=== PATIENT | female | born 1955 | race Caucasian/White ===

== ENCOUNTER 2016-05-28 19:49 | Emergency (ER) | payer BC, MEDICARE ==
[2016-05-28] MEDS ORDERED: oxyCODONE 5 MG TABLET PO STA (19:58)
[2016-05-28] MEDS ORDERED: oxyCODONE 5 MG TABLET ONE (20:01)
[2016-05-28] MEDS ORDERED: oxyCODONE/ACET 5/325 Prepack 4 PO STA (20:37)
[2016-05-28] MEDS ORDERED: oxyCODONE/ACET 5/325 Prepack 4 PO ONE (20:40)
== END 2016-05-28 20:55 | disposition home or self-care (01) ==
DX: R10.11 Right upper quadrant pain (principal); E11.65 Type 2 diabetes mellitus with hyperglycemia; I10 Essential (primary) hypertension; E78.00 Pure hypercholesterolemia, unspecified; I25.10 Atherosclerotic heart disease of native coronary artery without angina pectoris; E03.9 Hypothyroidism, unspecified; G47.30 Sleep apnea, unspecified; K21.9 Gastro-esophageal reflux disease without esophagitis; K44.9 Diaphragmatic hernia without obstruction or gangrene; R32 Unspecified urinary incontinence; F41.0 Panic disorder [episodic paroxysmal anxiety]; F31.9 Bipolar disorder, unspecified; F40.240 Claustrophobia; M19.90 Unspecified osteoarthritis, unspecified site; G89.29 Other chronic pain; M54.9 Dorsalgia, unspecified; I25.2 Old myocardial infarction; Z86.73 Personal history of transient ischemic attack (TIA), and cerebral infarction without residual deficits; Z85.3 Personal history of malignant neoplasm of breast; Z79.84 Long term (current) use of oral hypoglycemic drugs; Z79.4 Long term (current) use of insulin; Z79.899 Other long term (current) drug therapy; Z90.49 Acquired absence of other specified parts of digestive tract
CPT/HCPCS: 36415; 80053; 83690; 85025; 85610; 99283; 99284; A9270

== ENCOUNTER 2016-07-16 11:14 | Emergency (ER) | payer BC, MEDICARE | END 2016-07-16 13:38 | disposition home or self-care (01) | DX: J06.9 Acute upper respiratory infection, unspecified (principal); J98.11 Atelectasis; Z87.891 Personal history of nicotine dependence; I10 Essential (primary) hypertension; E11.9 Type 2 diabetes mellitus without complications; Z79.4 Long term (current) use of insulin; E78.5 Hyperlipidemia, unspecified; I25.10 Atherosclerotic heart disease of native coronary artery without angina pectoris; I25.2 Old myocardial infarction; E03.9 Hypothyroidism, unspecified ==

== ENCOUNTER 2016-08-15 09:47 | Outpatient (CLI) | payer BC, MEDICARE | END 2016-08-15 09:48 | disposition home or self-care (01) | DX: Z12.31 Encounter for screening mammogram for malignant neoplasm of breast (principal); Z98.82 Breast implant status; Z85.3 Personal history of malignant neoplasm of breast ==

== ENCOUNTER 2016-08-15 10:17 | Outpatient (CLI) | payer BC, MEDICARE | END 2016-08-15 10:18 | disposition home or self-care (01) | DX: R07.89 Other chest pain (principal) | CPT/HCPCS: 78452; 93017; A9500 ==

== ENCOUNTER 2016-10-30 11:02 | Emergency (ER) | payer BC, MEDICARE ==
[2016-10-30 11:56] LABS: BASOPHILS # (AUTO) 0.1 10^3/uL (0.0-0.1); EOSINOPHILS # (AUTO) 0.4 10^3/uL (0.0-0.7); HCT - HEMATOCRIT 33.4 % (37.0-47.0); HGB - HEMOGLOBIN 11.1 g/dL (12.0-16.0); LYMPHOCYTES # (AUTO) 2.4 10^3/uL (1.5-3.5); LYMPHOCYTES % (AUTO) 34.1 %; MEAN CORPUSCULAR HEMOGLOBIN 26.7 pg (27.0-31.0); MEAN CORPUSCULAR HGB CONC 33.2 g/dL (32.0-36.0); MEAN CORPUSCULAR VOLUME 80.4 fL (81.0-99.0); MONOCYTES # (AUTO) 0.6 10^3/uL (0.0-1.0); NEUTROPHILS # (AUTO) 3.6 10^3/uL (1.5-6.6); NEUTROPHILS % (AUTO) 50.9 %; RED BLOOD COUNT 4.16 10^6/uL (4.20-5.40); RED CELL DISTRIBUTION WIDTH 15.5 % (12.0-15.0)
--- NOTE | 2016-10-30 11:58 | ED Physician Documentation ---
History of Present Illness - Stated complaint Stated Complaint: CHEST PAIN - Chief complaint Chief Complaint: Cardiac - History obtained from History obtained from: Patient - Additonal information Additional information: Patient is a 61-year-old female brought in by EMS for a multitude of complaints. She says she has pain all of her body and that she is swollen everywhere. She points an area on her medial right knee that appears to be an old area of soft tissue swelling and bruising. She says she has been falling a lot at home. She also complains of low back pain headaches nausea on occasion and feels like she needs pain medication. I also talked with the patient's brother who knows her quite well and was very concerned about her addiction. He says that he is currently in recovery in both her parents and everyone in her family is addicted. She is currently taking at least 12 mg of Dilaudid a day and also taking diazepam as well. He is concerned about her heavy use of narcotics. He feels she is probably using more than she tells us. He also mentions that she was in [place] at the emergency department last week for identical complaints. He said that they did a fairly significant workup and did not find anything unusual. Review of systems: For pertinent positive and negative questions for the review of systems please see history of present illness. Otherwise all other systems have been reviewed and are negative. [place] disclaimer: Parts of this medical record were created using voice recognition technology. Because of the inherent limitations of this system occasional same sounding word substitutions do occur and persist despite proofreading. Please read the document for context. 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: Breast cancer : Incontinence HEENT: None Psych: Depression, Anxiety, Bipolar disorder, Panic attacks, Claustrophobia Musculoskeletal: Osteoarthritis, Chronic back pain Derm: None - Past Surgical History Past Surgical History: Yes General: Cholecystectomy, Appendectomy, Colonoscopy, Other Ortho: Carpal Tunnel surgery, Other /ADDING MACHINE MECHANIC: Hysterectomy, Mastectomy Cardiovascular: Cardiac catheterization, Other HEENT: Cataracts, Tonsil/Adenoidectomy - Present Medications Home Medications: Ambulatory Orders Medication Instructions Recorded Confirmed Duloxetine HCl [Cymbalta] 60 mg PO DAILY 08/15/14 10/30/16 Levothyroxine Sodium [Synthroid] 300 mcg PO DAILY 08/15/14 10/30/16 Losartan [Cozaar] 25 mg PO DAILY 08/15/14 10/30/16 Insulin Lispro [Humalog Kwikpen] 70 unit SQ BID 11/22/15 10/30/16 Metoprolol Tartrate [Lopressor] 25 mg PO BID 11/22/15 10/30/16 Multivitamin [Multivitamins] 1 each PO DAILY 11/22/15 10/30/16 Vitamin B Complex 1 each PO DAILY 11/22/15 10/30/16 traMADol [Ultram] 50 mg PO Q4-6H PRN 11/22/15 10/30/16 Trospium Chloride 1 tab BID 05/28/16 10/30/16 Alprazolam [Alprazolam] 1 tab PO PRN PRN 10/30/16 10/30/16 Atorvastatin Calcium 1 tab PO DAILY 10/30/16 10/30/16 HYDROmorphone [Dilaudid] 1 tab PO PRN PRN 10/30/16 10/30/16 Metformin HCl [Metformin HCl] 1 tab PO DAILY 10/30/16 10/30/16 Multivitamin [Multivitamins] 1 tab PO DAILY 10/30/16 10/30/16 Pantoprazole [Protonix] 1 tab PO DAILY 10/30/16 10/30/16 Senna [Senokot] 1 tab PO DAILY 10/30/16 10/30/16 - Allergies Allergies/Adverse Reactions: Allergies Allergy/AdvReac Type Severity Reaction Status Date / Time azithromycin Allergy Edema Verified 10/30/16 11:09 [From Zithromax Z-Robin] Penicillins Allergy Anaphylaxis Verified 10/30/16 11:09 vancomycin Allergy Edema Verified 10/30/16 11:09 erythromycin base AdvReac Emesis Verified 10/30/16 11:09 sulfacetamide sodium * AdvReac Unknown Verified 10/30/16 11:09 [From Sulfamide] - Social History Does the pt smoke?: No Smoking Status: Former smoker Does the pt drink ETOH?: Yes Does the pt have substance abuse?: No - Immunizations Immunizations are current?: Yes - POLST Patient has POLST: No PD ED PE NORMAL - Vitals Vital signs reviewed: Yes - General General: No acute distress, Well developed/nourished (Patient looks intoxicated on narcotics), Other - HEENT HEENT: Atraumatic, PERRL, Other (Mild pupillary constriction bilaterally) - Neck Neck: No bony TTP - Cardiac Cardiac: RRR, No murmur, No gallop, No rub - Respiratory Respiratory: No respiratory distress, Clear bilaterally - Abdomen Abdomen: Normal bowel sounds, Soft, Non tender, Non distended - Derm Derm: Normal color, Warm and dry, No rash - Extremities Extremities: No deformity, No tenderness to palpate, Normal ROM s pain, No edema - Neuro Neuro: Alert and oriented X 3, No motor deficit, No sensory deficit, Normal speech Results - Vitals Vitals: Vital Signs - 24 hr 10/30/16 11:05 Heart Rate 82 Respiratory 16 Rate Blood Pressure 152/80 H O2 Saturation 98 Oxygen O2 Source Room air PD MEDICAL DECISION MAKING - ED course ED course: This patient is a 61-year-old female with a long history of chronic pain hypertension migraines and anxiety who presents with a complaint of pain all over her body and edema all of her body. She does state that she falls on occasion which is confirmed by her brother and his are quite well. He does not believe that there is been any fall recently. He does live with her and is aware that she is taking these high doses of narcotics. He thinks that perhaps she may be taking more than she is supposed to. Or data shows that she is taking 12 mg of Dilaudid a day and diazepam.On my physical examination I see no obvious evidence of any soft tissue swelling anywhere in her body other than the area that looks subacute adjacent to the right knee. I carefully palpated her from head to toe. She has multiple vague complaints that do not fit into any one unified pattern. We did check a chest x-ray on her it shows no acute intrathoracic disease. EKG shows normal sinus rhythm with a normal, [place] QRS and QT intervals there is a very subtle T-wave inversion in V1 V2 and V3 but there are really no cardiac complaints chest x-ray shows no acute disease blood work on this patient is really unremarkable. She is given 1 mg of Ativan just to keep her compliant. The patient's brother is going to talk with her primary care physician Dr. Carrington about her pain medication use. He feels that she is on much too high of a dose and she probably needs to be placed in a detoxification center. The patient does not want Help at this time and reducing her narcotic use. Departure - Departure Disposition: 01 Home, Self Care Clinical Impression: Psychogenic body system pain Condition: Good Instructions: Chronic Pain Therapies Mind Body
[2016-10-30 12:03] LABS: BILIRUBIN,TOTAL 0.3 mg/dL (0.2-1.0); CREATININE 0.5 mg/dL (0.4-1.0); TOTAL PROTEIN 8.1 g/dL (6.7-8.2)
[2016-10-30 12:06] LABS: BILIRUBIN,URINE NEGATIVE (NEGATIVE)
[2016-10-30 12:07] LABS: UA CHARGE (STRIP ONLY) YES; UR CULTURE IF IND NOT INDICATED
--- NOTE | 2016-10-30 12:20 | XRAY Preliminary Report ---
Exam: XR Chest 1 View IMPRESSION: 1. Persistent borderline cardiomegaly with new finding suggesting mild pulmonary congestion. 2. New or significantly increased size of small patchy focal opacities in the lingula, suggesting ate lectasis versus focal infiltrate. [facility] SITE ID: [id number]
--- NOTE | 2016-10-30 12:23 | XRAY Report ---
EXAM: CHEST RADIOGRAPHY EXAM DATE: 10/30/2016 11:49 AM. CLINICAL HISTORY: Chest pain.Status post open heart surgery in August 2016. COMPARISON: 07/16/2016. TECHNIQUE: 1 view. FINDINGS: Lungs/Pleura: New mild perihilar opacity, perihilar bronchial cuffing bilaterally and new or signific antly increased size of small patchy focal opacities in the lingula evident. No pleural effusion. No pneumothorax. Mediastinum: Borderline cardiomegaly is again noted. Other: Interval status post sternotomy is noted. IMPRESSION: 1. Persistent borderline cardiomegaly with new finding suggesting mild pulmonary congestion. 2. New or significantly increased size of small patchy focal opacities in the lingula, suggesting ate lectasis versus focal infiltrate. [facility] Referring Provider Line: [phone] SITE ID: [id number]
--- NOTE | 2016-10-30 14:34 | ED Physician Documentation ---
History of Present Illness - Stated complaint Stated Complaint: CHEST PAIN - Chief complaint Chief Complaint: Cardiac - History obtained from History obtained from: Family - Additonal information Additional information: This patient is a pleasant 61-year-old female with a history of known coronary artery disease. She was bypassed on September 06 of this year. She prior to the bypass had a few stents that were placed to temporize her. She does have hypertension, diabetes, dyslipidemia and obesity. She has been compliant with her medications. She was actually doing wellWith outpatient exercise in cardiac rehab today on the treadmill she developed chest pressure after about 10 -15 minutes. This is described as a substernal heaviness rating to the back without associated symptoms. She did however have a headache she says there was some chest pain when she presented to the ED. Here the patient had a ECG done this ECG demonstrates normal sinus rhythm with some nonspecific anterior T- wave abnormalities. In V1 V2 and a lesser extent V3 there is very small T-wave inversion and ST and T segments are isoelectric the WI QRS and QT intervals are normal there are no Q waves. Chest x-ray demonstrates poor penetration however there is no evidence of any acute intrathoracic disease. Blood work on this patient is unremarkable including troponin. The patient's pain is gone. I discussed the case with her medicine assistant at [facility] Dr. Bhandari.He has called in a prescription for additional antianginal medication. He is going to put her on Imdur. The patient at this time clinically looks well and has no complaints a second troponin was done at approximately 2-1/2 hours after the onset of discomfort. The second troponin is also normal. The medicine assistant will be calling the patient. We did discuss limitations and at this point in time he would like her to proceed with continuing cardiac rehabilitation. Disposition: To home Clinical impression: 1. 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: Breast cancer : Incontinence HEENT: None Psych: Depression, Anxiety, Bipolar disorder, Panic attacks, Claustrophobia Musculoskeletal: Osteoarthritis, Chronic back pain Derm: None - Past Surgical History Past Surgical History: Yes General: Cholecystectomy, Appendectomy, Colonoscopy, Other Ortho: Carpal Tunnel surgery, Other /BSA/AML COMPLIANCE OFFICER: Hysterectomy, Mastectomy Cardiovascular: Cardiac catheterization, Other HEENT: Cataracts, Tonsil/Adenoidectomy - Present Medications Home Medications: Ambulatory Orders Medication Instructions Recorded Confirmed Duloxetine HCl [Cymbalta] 60 mg PO DAILY 08/15/14 10/30/16 Levothyroxine Sodium [Synthroid] 325 mcg PO DAILY 08/15/14 10/30/16 Losartan [Cozaar] 25 mg PO DAILY 08/15/14 10/30/16 Insulin Lispro [Humalog Kwikpen] 70 unit SQ BID 11/22/15 10/30/16 Metoprolol Tartrate [Lopressor] 25 mg PO BID 11/22/15 10/30/16 Multivitamin [Multivitamins] 1 each PO DAILY 11/22/15 10/30/16 Vitamin B Complex 1 each PO DAILY 11/22/15 10/30/16 traMADol [Ultram] 50 mg PO Q4-6H PRN 11/22/15 10/30/16 Trospium Chloride 1 tab BID 05/28/16 10/30/16 Alprazolam [Alprazolam] 1 tab PO PRN PRN 10/30/16 10/30/16 Atorvastatin Calcium 1 tab PO DAILY 10/30/16 10/30/16 HYDROmorphone [Dilaudid] 1 tab PO PRN PRN 10/30/16 10/30/16 Levothyroxine Sodium [Synthroid] 300 mcg PO DAILY 10/30/16 10/30/16 Metformin HCl [Metformin HCl] 1 tab PO DAILY 10/30/16 10/30/16 Multivitamin [Multivitamins] 1 tab PO DAILY 10/30/16 10/30/16 Pantoprazole [Protonix] 1 tab PO DAILY 10/30/16 10/30/16 Senna [Senokot] 1 tab PO DAILY 10/30/16 10/30/16 - Allergies Allergies/Adverse Reactions: Allergies Allergy/AdvReac Type Severity Reaction Status Date / Time azithromycin Allergy Edema Verified 10/30/16 11:09 [From Zithromax Z-Robin] Penicillins Allergy Anaphylaxis Verified 10/30/16 11:09 vancomycin Allergy Edema Verified 10/30/16 11:09 erythromycin base AdvReac Emesis Verified 10/30/16 11:09 sulfacetamide sodium * AdvReac Unknown Verified 10/30/16 11:09 [From Sulfamide] - Social History Does the pt smoke?: No Smoking Status: Former smoker Does the pt drink ETOH?: Yes Does the pt have substance abuse?: No - Immunizations Immunizations are current?: Yes - POLST Patient has POLST: No Results - Vitals Vitals: Vital Signs - 24 hr 10/30/16 10/30/16 11:05 11:57 Heart Rate 82 75 Respiratory 16 18 Rate Blood Pressure 152/80 H 143/75 H O2 Saturation 98 99 Oxygen O2 Source Room air - Labs Labs: Laboratory Tests 10/30/16 10/30/16 10/30/16 11:11 11:11 11:11 WBC 7.0 RBC 4.16 L Hgb 11.1 L Hct 33.4 L MCV 80.4 L MCH 26.7 L MCHC 33.2 RDW 15.5 H Plt Count 277 MPV 8.0 Neut # 3.6 Lymph # 2.4 [place] # 0.6 Eos # 0.4 Baso # 0.1 Absolute Nucleated RBC 0.00 Nucleated RBCs 0.0 Sodium 139 Potassium 4.0 Chloride 102 Carbon Dioxide 27 Anion Gap 10.0 BUN 9 Creatinine 0.5 Estimated GFR (MDRD) 126 Glucose 88 Calcium 10.0 Total Bilirubin 0.3 AST 40 ALT 32 Alkaline Phosphatase 178 H Troponin I < 0.04 B-Natriuretic Peptide Total Protein 8.1 Albumin 4.1 Globulin 4.0 Albumin/Globulin Ratio 1.0 Lipase 29 Urine Color Urine Clarity Urine pH Ur Specific [place] Urine Protein Urine Glucose (UA) Urine Ketones Urine Occult Blood Urine Nitrite Urine Bilirubin Urine Urobilinogen Ur Leukocyte Esterase Ur Microscopic Review Urine Culture Comments 10/30/16 10/30/16 10/30/16 11:11 11:47 13:35 WBC RBC Hgb Hct MCV MCH MCHC RDW Plt Count MPV Neut # Lymph # [place] # Eos # Baso # Absolute Nucleated RBC Nucleated RBCs Sodium Potassium Chloride Carbon Dioxide Anion Gap BUN Creatinine Estimated GFR (MDRD) Glucose Calcium Total Bilirubin AST ALT Alkaline Phosphatase Troponin I < 0.04 B-Natriuretic Peptide 54 Total Protein Albumin Globulin Albumin/Globulin Ratio Lipase Urine Color YELLOW Urine Clarity CLEAR Urine pH 7.0 Ur Specific [place] <=1.005 Urine Protein NEGATIVE Urine Glucose (UA) NEGATIVE Urine Ketones NEGATIVE Urine Occult Blood NEGATIVE Urine Nitrite NEGATIVE Urine Bilirubin NEGATIVE Urine Urobilinogen 0.2 (NORMAL) Ur Leukocyte Esterase NEGATIVE Ur Microscopic Review NOT INDICATED Urine Culture Comments NOT INDICATED Departure - Departure Disposition: 01 Home, Self Care Clinical Impression: Precordial chest pain Condition: Good Instructions: Nitroglycerin Long Act Dc, Angina Dc Follow-Up: Omar Gauthier MD [Physician No Access] -
[2016-10-30 14:48] VITALS: BP 166/96
== END 2016-10-30 14:53 | disposition home or self-care (01) ==
LOC: ED 11:02
DX: R07.2 Precordial pain (principal); I25.10 Atherosclerotic heart disease of native coronary artery without angina pectoris; I25.2 Old myocardial infarction; I10 Essential (primary) hypertension; E11.9 Type 2 diabetes mellitus without complications; Z95.1 Presence of aortocoronary bypass graft; Z95.5 Presence of coronary angioplasty implant and graft; Z86.73 Personal history of transient ischemic attack (TIA), and cerebral infarction without residual deficits; Z87.891 Personal history of nicotine dependence; Z79.84 Long term (current) use of oral hypoglycemic drugs; Z79.4 Long term (current) use of insulin
CPT/HCPCS: 36415; 71010; 80053; 81001; 81003; 83690; 83880; 84484; 85025; 87086; 93005; 99284

== ENCOUNTER 2017-04-08 15:41 | Observation (INO) | payer BC, MEDICARE ==
[2017-04-08 16:13] LABS: BASOPHILS # (AUTO) 0.1 10^3/uL (0.0-0.1); BASOPHILS % (AUTO) 0.7 %; EOSINOPHILS # (AUTO) 0.3 10^3/uL (0.0-0.7); EOSINOPHILS % (AUTO) 3.6 %; HCT - HEMATOCRIT 37.4 % (37.0-47.0); HGB - HEMOGLOBIN 12.4 g/dL (12.0-16.0); LYMPHOCYTES # (AUTO) 2.7 10^3/uL (1.5-3.5); LYMPHOCYTES % (AUTO) 30.7 %; MEAN CORPUSCULAR HEMOGLOBIN 25.8 pg (27.0-31.0); MEAN CORPUSCULAR HGB CONC 33.2 g/dL (32.0-36.0); MEAN CORPUSCULAR VOLUME 77.8 fL (81.0-99.0); MONOCYTES # (AUTO) 0.6 10^3/uL (0.0-1.0); RED BLOOD COUNT 4.81 10^6/uL (4.20-5.40); RED CELL DISTRIBUTION WIDTH 15.6 % (12.0-15.0); UNCORRECTED WHITE BLOOD COUNT 8.7 x10^3/uL; WHITE BLOOD COUNT 8.7 x10^3/uL (4.8-10.8)
[2017-04-08 16:20] LABS: ALBUMIN/GLOBULIN RATIO 1.1 (1.0-2.2); BILIRUBIN,TOTAL 0.5 mg/dL (0.2-1.0); CALCIUM 9.8 mg/dL (8.5-10.3); CREATININE 0.9 mg/dL (0.4-1.0); POTASSIUM 4.1 mmol/L (3.5-5.0); TOTAL PROTEIN 8.5 g/dL (6.7-8.2)
--- NOTE | 2017-04-08 16:21 | ED Physician Documentation ---
PD HPI CHEST PAIN - Stated complaint Stated Complaint: CHEAST PAIN/ RAPID HR - Chief complaint Chief Complaint: Cardiac - History obtained from History obtained from: Patient, Family - History of Present Illness Timing - onset: How many days ago (9) Timing - onset during: Light activity, Exertion Timing - duration: Hours Timing - details: Abrupt onset, Still present, Waxing and waning Quality: Pressure, Tightness Location: Left chest, Left neck Radiation: Neck, Left upper extremity Improved by: Rest Worsened by: Exertion. No: Inspiration, Eating, Movement, Palpation, Position Associated symptoms: Feeling faint / dizzy. No: Shortness of air, Diaphoresis, Nausea, Vomiting, General Weakness, Palpitations, Cough Similar symptoms before: Diagnosis (CAD) Recently seen: Not recently seen - Additional information Additional information: 62-year-old female with a prior history of coronary artery disease has had 9 days of exertionally related chest pain with radiation into her neck. She describes the chest pain as feeling her heart beat and she is feeling it beat in her neck as well. She does have some radiation down her left arm. She has been getting relief with rest over the last 9 days and today the pain did not leave even with rest. She is come to the emergency department for evaluation. She has had an SC in 2006 she had stents placed. she has had stents and a bypass done in August of this year and she sees Dr. Redding. Review of Systems Constitutional: denies: Fever, Chills, Myalgias, Fatigue, Sweats Eyes: denies: Decreased vision Ears: denies: Ear pain Nose: denies: Rhinorrhea / runny nose, Congestion Throat: denies: Sore throat Cardiac: reports: Chest pain / pressure. denies: Palpitations, Pedal edema, Calf pain Respiratory: reports: Cough. denies: Dyspnea GI: reports: Nausea. 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: Breast cancer : Incontinence HEENT: None Psych: Depression, Anxiety, Bipolar disorder, Panic attacks, Claustrophobia Musculoskeletal: Osteoarthritis, Chronic back pain Derm: None - Past Surgical History Past Surgical History: Yes General: Cholecystectomy, Appendectomy, Colonoscopy, Other Ortho: Carpal Tunnel surgery, Other /RN ENDOSCOPY: Tubal ligation, Hysterectomy, Mastectomy Cardiovascular: CABG, Coronary stent, Cardiac catheterization, Other HEENT: Cataracts, Tonsil/Adenoidectomy - Present Medications Home Medications: Ambulatory Orders Medication Instructions Recorded Confirmed Duloxetine HCl [Cymbalta] 60 mg PO DAILY 08/15/14 04/08/17 Levothyroxine Sodium [Synthroid] 300 mcg PO DAILY 08/15/14 04/09/17 Losartan [Cozaar] 25 mg PO DAILY 08/15/14 04/08/17 Metoprolol Tartrate [Lopressor] 50 mg PO BID 11/22/15 04/09/17 Vitamin B Complex 1 each PO DAILY 11/22/15 04/08/17 traMADol [Ultram] 50 mg PO Q4-6H PRN 11/22/15 04/08/17 Trospium Chloride 20 mg PO BID 05/28/16 04/09/17 Alprazolam 0.5 mg PO Q6H PRN 10/30/16 04/09/17 Atorvastatin Calcium 40 mg PO 2100 10/30/16 04/09/17 Metformin HCl 1,000 mg PO BID 10/30/16 04/09/17 Multivitamin [Multivitamins] 1 tab PO DAILY 10/30/16 04/08/17 Pantoprazole [Protonix] 40 mg PO DAILY 10/30/16 04/09/17 Aspirin Chewable [St Ciro 162 mg PO DAILY 04/08/17 04/08/17 Aspirin] Insulin Lispro [Humalog] 5 unit SUBQ AC 04/08/17 04/08/17 Cholecalciferol (Vitamin D3) 2,000 unit PO DAILY 04/09/17 04/09/17 [Vitamin D3] Clopidogrel Bisulfate [Clopidogrel] 75 mg PO DAILY 04/09/17 04/09/17 Duloxetine HCl 60 mg PO 2100 04/09/17 04/09/17 Insulin Aspart [NovoLOG] 3 - 11 unit SUBQ 04/09/17 0800,1200,1700,2100 pen Insulin Glargine [Lantus Solostar] 70 unit SUBQ BID pen 04/09/17 Insulin NPH Human Isophane 70 unit SQ BID 04/09/17 04/09/17 [Humulin N] Losartan [Cozaar] 25 mg PO DAILY tablet 04/09/17 Nitroglycerin [Nitrostat] 0.4 mg SL Q5MIN PRN tablet 04/09/17 Polyethylene Glycol 3350 [Miralax] 17 gm PO DAILY packet 04/09/17 - Allergies Allergies/Adverse Reactions: Allergies Allergy/AdvReac Type Severity Reaction Status Date / Time azithromycin Allergy Edema Verified 10/30/16 11:09 [From Zithromax Z-Robin] Penicillins Allergy Anaphylaxis Verified 10/30/16 11:09 vancomycin Allergy Edema Verified 10/30/16 11:09 erythromycin base AdvReac Emesis Verified 10/30/16 11:09 sulfacetamide sodium * AdvReac Unknown Verified 10/30/16 11:09 [From Sulfamide] - Social History Does the pt smoke?: No Smoking Status: Never smoker Does the pt drink ETOH?: Yes Does the pt have substance abuse?: No - Immunizations Immunizations are current?: Yes - POLST Patient has POLST: No PD ED PE NORMAL - Vitals Vital signs reviewed: Yes (hypertensive ) - General General: Alert and oriented X 3, No acute distress, Well developed/nourished - HEENT HEENT: Atraumatic, PERRL, EOMI, Other (dry mucous membranes) - Cardiac Cardiac: RRR, Other (2/6 holosystolic murmer at LSB) - Respiratory Respiratory: No respiratory distress, Clear bilaterally, Other (no chest wall tenderness) - Abdomen Abdomen: Soft, Non tender - Back Back: No CVA TTP, No spinal TTP - Derm Derm: Normal color, Warm and dry, No rash - Extremities Extremities: No deformity, No edema - Neuro Neuro: No motor deficit, No sensory deficit Eye Opening: Spontaneous Motor: Obeys Commands Verbal: Oriented GCS Score: 15 - Psych Psych: Normal mood, Normal affect Results - Vitals Vitals: Oxygen O2 Source Room air - EKG (time done) 1547 Rate: Rate (enter#) (77) Rhythm: NSR Ischemia: Non specific changes Other comments: Other comments (RSR' in V1) Compare to prior EKG: Changed from prior EKG (SPT 10-30-2016 the T wave inversion in lead V2 has resovled. ) Computer interpretation: Agree with computer - Labs Labs: Laboratory Tests 04/08/17 04/08/17 04/08/17 16:00 16:00 16:00 WBC 8.7 RBC 4.81 Hgb 12.4 Hct 37.4 MCV 77.8 L MCH 25.8 L MCHC 33.2 RDW 15.6 H Plt Count 321 MPV 8.0 Neut # 5.0 Lymph # 2.7 [place] # 0.6 Eos # 0.3 Baso # 0.1 Absolute Nucleated RBC 0.00 Nucleated RBC % 0.0 Sodium 134 L Potassium 4.1 Chloride 94 L Carbon Dioxide 26 Anion Gap 14.0 H BUN 17 Creatinine 0.9 Estimated GFR (MDRD) 64 L Glucose 394 H Glycated Hemoglobin Estim Average Glucose Calcium 9.8 Total Bilirubin 0.5 AST 39 ALT 46 Alkaline Phosphatase 144 H Troponin I < 0.04 Total Protein 8.5 H Albumin 4.4 Globulin 4.1 Albumin/Globulin Ratio 1.1 Lipase 34 04/08/17 04/08/17 16:00 17:48 WBC RBC Hgb Hct MCV MCH MCHC RDW Plt Count MPV Neut # Lymph # [place] # Eos # Baso # Absolute Nucleated RBC Nucleated RBC % Sodium Potassium Chloride Carbon Dioxide Anion Gap BUN Creatinine Estimated GFR (MDRD) Glucose Glycated Hemoglobin 8.6 H Estim Average Glucose 200 H Calcium Total Bilirubin AST ALT Alkaline Phosphatase Troponin I < 0.04 Total Protein Albumin Globulin Albumin/Globulin Ratio Lipase - Rads (name of study) 1 view chest Radiology: Prelim report reviewed (Impression: No acute pulmonary consolidation. ), EMP read indepedently, See rad report Procedures - IVC sono (time) 1600 Bedside IVC sono: IVC measures (cm) (2.10), Euvolemia PD MEDICAL DECISION MAKING - ED course Complexity details: reviewed old records, reviewed results, re-evaluated patient , considered differential, d/w patient, d/w family ED course: 62 y/o female with a history of CAD has developed symptoms over the past week with exertional chest pain that has resovled with rest and now she has pain that has not resolved with rest. Her EKG is unremarkable and the trop is negative. I believe she will need a stress test. Her print designer Dr. Redding is consulted in the case and requests a second troponin and admission for stress test. Departure - Departure Disposition: 66 [facility] DC/Xfer Clinical Impression: Atypical chest pain Condition: Fair Discharge Date/Time: 04/08/17 19:16
--- NOTE | 2017-04-08 16:35 | XRAY Preliminary Report ---
Exam: XR CHEST 1 VIEW IMPRESSION: No acute pulmonary consolidation. [facility] SITE ID: [id number]
--- NOTE | 2017-04-08 16:37 | XRAY Report ---
EXAM: CHEST RADIOGRAPHY EXAM DATE: 04/08/2017 04:21 PM. CLINICAL HISTORY: Chest pain. COMPARISON: Chest x-ray 07/16/2016. TECHNIQUE: 1 view. FINDINGS: Lungs/Pleura: No focal opacities evident. No pleural effusion. No pneumothorax. Mediastinum: Normal heart size with aortic tortuosity. Status post median sternotomy. Other: Status post right axillary surgery. IMPRESSION: No acute pulmonary consolidation. [facility] Referring Provider Line: [phone] SITE ID: [id number]
[2017-04-08] MEDS ORDERED: PROCHLORPERAZINE 10 MG/2 ML VIAL IVP PRN (18:10)
[2017-04-08] MEDS ORDERED: TEMAZEPAM 15 MG CAPSULE PO PRN (18:10)
[2017-04-08] MEDS ORDERED: SODIUM CHLORIDE FLUSH 0.9% 10 ML SYRINGE IVP PRN (18:10)
[2017-04-08] MEDS ORDERED: HYDROmorphone 2 MG TABLET PO PRN (18:16)
[2017-04-08] MEDS ORDERED: traMADol 50 MG TABLET PO PRN (18:16)
[2017-04-08] MEDS ORDERED: ALPRAZOLAM PO PRN ×2 (18:16→21:35)
[2017-04-08] MEDS ORDERED: NITROGLYCERIN SL 0.4 MG TABLET SL PRN (18:20)
[2017-04-08] MEDS ORDERED: ACETAMINOPHEN 325 MG TABLET PO STA (18:47)
--- NOTE | 2017-04-08 18:54 | HISTORY & PHYSICAL EXAMINATION ---
Chief Complaint - Chief Complaint Chief Complaint: chest pain and headache x 9 days History of Present Illness - History of Present Illness HPI Comment/Other: Mrs. Ángela Poe is a very pleasant 62 yo woman with an extensive personal and family history of coronary artery disease who has been having transient chest pain accompanied by a chronic headache for the last 9 days. Today the chest pain was worse, and when it did not go away after a few hours she came to the ED. She is cuurently having both the chest pain and headache and denies nausea, vomiting, diaphoresis or radiation of the chest pain. 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: Breast cancer : reports: Incontinence HEENT: reports: None Psych: reports: Depression, Anxiety, Bipolar disorder, Panic attacks, Claustrophobia Musculoskeletal: reports: Osteoarthritis, Chronic back pain Derm: reports: None MRSA Hx?: No - Past Surgical History General: reports: Cholecystectomy, Appendectomy, Colonoscopy, Other (hernia repair, salpingectomy, breast biopsy, double mastectomy with reconstruction) Ortho: reports: Carpal Tunnel surgery, Other (L scapula surgery, R kneecap release) /FEDERAL APPELLATE CLERK: reports: Tubal ligation, Hysterectomy, Mastectomy Cardiovascular: reports: CABG, Coronary stent, Cardiac catheterization, Other HEENT: reports: Cataracts, Tonsil/Adenoidectomy - Family & Social History Family History: Mother: , CAD, Hyperlipidemia, Hypertension, MS, Father : Alive and Well, CAD, Hyperlipidemia, Hypertension, MS, Brother: CAD, Hyperlipidemia, Hypertension, MS Living arrangement: At home Living Situation: With spouse/s.o. - Substance History Use: Uses substance without health or social issues: Tobacco (Quit 1993, 30 py hx), Alcohol (Very rarely will have 1 beer) Abuse: Recurrent use of substance despite neg consequences: NONE Dependence: Experiences withdrawal or developed tolerances: NONE - POLST Patient has POLST: No POLST Status: Full Code Meds/Allgy - Home Medications Home Medications: Ambulatory Orders Medication Instructions Recorded Confirmed Duloxetine HCl [Cymbalta] 60 mg PO DAILY 08/15/14 04/08/17 Levothyroxine Sodium [Synthroid] 325 mcg PO DAILY 08/15/14 04/08/17 Losartan [Cozaar] 25 mg PO DAILY 08/15/14 04/08/17 Insulin Lispro [Humalog Kwikpen] 70 unit SQ BID 11/22/15 04/08/17 Metoprolol Tartrate [Lopressor] 25 mg PO BID 11/22/15 04/08/17 Vitamin B Complex 1 each PO DAILY 11/22/15 04/08/17 traMADol [Ultram] 50 mg PO Q4-6H PRN 11/22/15 04/08/17 Trospium Chloride 1 tab BID 05/28/16 04/08/17 Alprazolam [Alprazolam] 1 tab PO PRN PRN 10/30/16 04/08/17 Atorvastatin Calcium 1 tab PO DAILY 10/30/16 04/08/17 HYDROmorphone [Dilaudid] 1 tab PO PRN PRN 10/30/16 04/08/17 Metformin HCl [Metformin HCl] 1 tab PO BID 10/30/16 04/08/17 Multivitamin [Multivitamins] 1 tab PO DAILY 10/30/16 04/08/17 Pantoprazole [Protonix] 1 tab PO DAILY 10/30/16 04/08/17 Alprazolam [Xanax] 0.5 mg PO BID 04/08/17 04/08/17 Aspirin Chewable [St Ciro 162 mg PO DAILY 04/08/17 04/08/17 Aspirin] Insulin Lispro [HumaLOG] 5 unit SUBQ AC 04/08/17 04/08/17 - Allergies Allergies/Adverse Reactions: Allergies Allergy/AdvReac Type Severity Reaction Status Date / Time azithromycin Allergy Edema Verified 10/30/16 11:09 [From Zithromax Z-Robin] Penicillins Allergy Anaphylaxis Verified 10/30/16 11:09 vancomycin Allergy Edema Verified 10/30/16 11:09 erythromycin base AdvReac Emesis Verified 10/30/16 11:09 sulfacetamide sodium * AdvReac Unknown Verified 10/30/16 11:09 [From Sulfamide] Review of Systems - Constitutional Constitutional: reports: Poor appetite. denies: Diaphoresis, Night sweats - Eyes Eyes: denies: Pain, Irritation, Blurred vision, Dipolpia - Ears, Nose & Throat Ears, Nose & Throat: denies: Ear pain, Hearing loss, Hearing aids, Vertigo, Nosebleeds, Sore throat, Dental pain - Cardiovascular Cariovascular: reports: Palpitations, Chest pain. denies: Irregular heart rate , Syncope, Orthopnea - Respiratory Respiratory: denies: Cough, Sputum production, Wheezing, Hemoptysis, SOB at rest - Gastrointestinal Gastrointestinal: denies: Abdominal pain, Abdominal distention, Nausea, Vomiting - Genitourinary Genitourinary: denies: Dysuria, Frequency, Urgency, Hematuria - Musculoskeletal Musculoskeletal: denies: Muscle pain, Back pain, Muscle aches, Stiffness - Integumentary Integumentary: denies: Rash, Pruritis, Lesions, Dryness - Neurological Neurological: reports: Headache. denies: Focal weakness, Seizures, Slurred speech - Psychiatric Psychiatric: denies: Depression, Anxiety, Suicidal, Delusions - Endocrine Endocrine: denies: Polyuria, Polydypsia, Polyphagia - Hematologic/Lymphatic Hematologic/Lymphatic: denies: Bruising, Petechiae, Lymphadenopathy - All Other Systems All Other Systems: reports: Reviewed and negative Exam - Vital Signs Reviewed Vital Signs: Yes Vital Signs: Vital Signs x48h Temp Pulse Resp BP Pulse Ox 04/08/17 18:30 74 16 134/73 H 100 04/08/17 16:59 82 19 139/75 H 94 04/08/17 15:47 37.1 C 78 18 154/74 H 100 - Physical Exam General Appearance: positive: No acute distress, Alert Eyes Bilateral: positive: Normal inspection, EOMI, No lid inflammation, Conjunctivae nml, No scleral icterus ENT: positive: ENT inspection nml, No signs of dehydration. negative: Purulent nasal drainage, Pharyngeal erythema, Oral lesions Neck: positive: Nml inspection, No JVD, Trachea midline. negative: Thyromegaly Respiratory: positive: Chest non-tender, No respiratory distress, Breath sounds nml. negative: Wheezes, Rales, Rhonchi Cardiovascular: positive: Regular rate & rhythm, No murmur, No gallop. negative : Friction rub Peripheral Pulses: positive: 1+ Abdomen: positive: Non-tender, No organomegaly, Nml bowel sounds, No distention. negative: Tenderness, Guarding, Rebound, Hepatomegaly, Splenomegaly Back: positive: Nml inspection. negative: CVA tenderness (R), CVA tenderness (L ) Skin: positive: Color nml, No rash, Warm, Dry. negative: Cyanosis, Diaphoresis Extremities: positive: Non-tender, Full ROM, Nml appearance, No pedal edema Neurologic/Psychiatric: positive: Oriented x3, CN's nml (2-12), Motor nml, Mood/ affect nml Conclusion/Plan - Problem List (1) Unstable angina Conclusion/Plan: Will admit pt to observation and continue with serial cardiac enzymes. First set negative. Will consult cardiology and order nuclear stress test. Continue ASA, B Blockers, Statin, and Nitrates. (2) Chronic headache Conclusion/Plan: Will continue with ASA and add aceteminophen, will monitor to see if it was related to chest pain. Qualifiers: Headache type: tension-type Intractability: intractable Qualified Code(s) : G44.221 - Chronic tension-type headache, intractable (3) Type 2 diabetes mellitus Conclusion/Plan: will place pt on sliding scale while inpatient, resume home regimen on discharge Qualifiers: Diabetes mellitus terminal manager insulin use: with terminal manager use - Lab Results Lab results reviewed: Yes Fish Bones: 04/08/17 16:00 04/08/17 16:00 Other Lab Results: Troponins negative x 1 - EKG Results EKG Interpreted Independently: Yes Issues/Core Measures - Anticipated LOS Anticipated Stay Length: Less than 2 midnights - [facility] Requirement for [facility] I expect patient to be DC'd or transferred within 96 hours.: Yes - Issues Hospital Issues and Management Plan: Unstable Angina, Chronic headache, Diabetes - DVT/VTE - Prophylaxis VTE/DVT Device ordered at admit?: Yes VTE/DVT Prophylaxis med ordered at admit?: Yes - AMI - Statin at Admit Aspirin Prescribed on Admit: Yes
[2017-04-08 19:58] LABS: BILIRUBIN,URINE NEGATIVE (NEGATIVE)
[2017-04-08 20:01] LABS: UA CHARGE (STRIP ONLY) YES; UR CULTURE IF IND NOT INDICATED
[2017-04-08 20:03] LABS: HEMOGLOBIN A1C 0.93 g/dL
[2017-04-08] MEDS: METOPROLOL TARTRATE 25 MG TABLET PO SCH (20:34)
[2017-04-08] MEDS: ALPRAZolam 0.25 MG TABLET PO SCH (20:34)
[2017-04-08] MEDS: INSULIN ASPART 300 UNIT/3 ML PEN SUBQ SCH (20:35)
[2017-04-08] MEDS: SODIUM CHLORIDE FLUSH 0.9% 10 ML SYRINGE IVP SCH (20:35)
[2017-04-08] MEDS ORDERED: INSULIN NPH HUMAN 100 UNIT/1 ML 10 ML MDV SUBQ SCH (21:00)
[2017-04-08] MEDS ORDERED: METFORMIN HCL PO SCH (21:00)
[2017-04-08] MEDS ORDERED: TROSPIUM CHLORIDE PO SCH (21:00)
[2017-04-08] MEDS ORDERED: INSULIN LISPRO 70 UNIT SQ SCH (21:30)
[2017-04-08] MEDS ORDERED: ALPRAZolam 0.25 MG TABLET PO PRN (21:35)
[2017-04-08] MEDS: INSULIN GLARGINE 300 UNIT/3 ML PEN SUBQ SCH (22:16)
[2017-04-09] MEDS: SODIUM CHLORIDE FLUSH 0.9% 10 ML SYRINGE IVP SCH ×2 (05:08→14:32)
[2017-04-09] MEDS: ACETAMINOPHEN 325 MG TABLET PO PRN ×2 (05:19→14:29)
[2017-04-09 05:59] LABS: BUN - BLOOD UREA NITROGEN 15 mg/dL (6-20); CALCIUM 9.8 mg/dL (8.5-10.3); CARBON DIOXIDE - CO2 29 mmol/L (21-32); CHLORIDE 96 mmol/L (101-111); CHOLESTEROL 298 mg/dL; CREATININE 0.8 mg/dL (0.4-1.0); GFR - MDRD 73 (>89); GLUCOSE 239 mg/dL (70-100); HDL CHOLESTEROL 60 mg/dL; LDL/HDL RATIO 3.3 (<4.4); POTASSIUM 4.7 mmol/L (3.5-5.0); SODIUM 137 mmol/L (135-145); TRIGLYCERIDES 213 mg/dL; VLDL CHOLESTEROL 43 mg/dL
[2017-04-09] MEDS ORDERED: PANTOPRAZOLE 40 MG TABLET PO SCH (08:00)
[2017-04-09] MEDS ORDERED: LOSARTAN 50 MG TABLET PO SCH (09:00)
[2017-04-09] MEDS ORDERED: POLYETHYLENE GLYCOL 3350 17 GM PACKET PO SCH (09:00)
[2017-04-09] MEDS ORDERED: NON FORMULARY MED (Vitamin B Complex [Vitamin B Complex] 1 EACH) PO SCH (09:00)
[2017-04-09] MEDS ORDERED: DULoxetine 30 MG CAPSULE PO SCH (09:00)
[2017-04-09] MEDS ORDERED: LEVOTHYROXINE SODIUM 325 MCG PO SCH (09:00)
[2017-04-09] MEDS ORDERED: MULTIVITAMIN TABLET PO SCH (09:00)
[2017-04-09] MEDS ORDERED: ASPIRIN EC 81 MG TABLET PO SCH (09:00)
[2017-04-09] MEDS: INSULIN ASPART 300 UNIT/3 ML PEN SUBQ SCH ×2 (09:12→14:31)
--- NOTE | 2017-04-09 10:56 | DISCHARGE SUMMARY ---
"Discharge Summary Admit Date: 04/08/17 Discharge Date: 04/09/17 Discharging Provider: Iris Hansen DO Code Status: Attempt Resuscitation Condition at Discharge: Fair - DIAGNOSES Admission Diagnoses: 1) Unstable angina 2) Chronic Headache 3) Type 2 diabetes mellitus Discharge Diagnoses with Status of Each Condition: 1) Unstable angina- Serial troponins were negative, no other cardiac markers were positive for any type of cardiac injury. Pt still c/o non-radiating chest pain. Pt continues her home ASA, B Blockers, Statin, and Nitrates. Chemical stress test showed 2) Chronic Headache- relieved temporarily with aceteminophen. Will wait to see if headache goes away with chest pain relief. 3) Type 2 diabetes mellitus- blood sugars controlled at this time. - HPI History of Present Illness: Mrs. Ángela Poe is a very pleasant 62 yo woman with an extensive personal and family history of coronary artery disease who has been having transient chest pain accompanied by a chronic headache for the last 9 days. Yesterday the chest pain was worse, and when it did not go away after a few hours she came to the ED. At time of admission she was having both the chest pain and headache and denied nausea, vomiting, diaphoresis or radiation of the chest pain. - CONSULTS | PROCEDURES Procedures: A chemical stress test was performed which showed a partially fixed but partially reversible mid to distal anterior wall perfusion defect. The patient has a left ventricular ejection fraction of 64% with septal hypokinesis and a normal left ventricular cavity size. There is no change to the left ventricular cavity size with stress. - HOSPITAL COURSE Hospital Course: The pt was placed in an observation bed and serial cardiac markers were obtained ; troponins were negative x3. A chemical stress test was performed which showed a partially fixed but partially reversible mid to distal anterior wall perfusion defect. The patient has a left ventricular ejection fraction of 64% with septal hypokinesis and a normal left ventricular cavity size. There is no change to the left ventricular cavity size with stress. The patient will be discharged home with instructions to follow-up with her primary care provider and chief scientific officer. - ALLERGIES Allergies/Adverse Reactions: Allergies Allergy/AdvReac Type Severity Reaction Status Date / Time azithromycin Allergy Edema Verified 10/30/16 11:09 [From Zithromax Z-Robin] Penicillins Allergy Anaphylaxis Verified 10/30/16 11:09 vancomycin Allergy Edema Verified 10/30/16 11:09 erythromycin base AdvReac Emesis Verified 10/30/16 11:09 sulfacetamide sodium * AdvReac Unknown Verified 10/30/16 11:09 [From Sulfamide] - MEDICATIONS Home Medications: Ambulatory Orders Medication Instructions Recorded Confirmed Duloxetine HCl [Cymbalta] 60 mg PO DAILY 08/15/14 04/08/17 Levothyroxine Sodium [Synthroid] 300 mcg PO DAILY 08/15/14 04/09/17 Losartan [Cozaar] 25 mg PO DAILY 08/15/14 04/08/17 Metoprolol Tartrate [Lopressor] 50 mg PO BID 11/22/15 04/09/17 Vitamin B Complex 1 each PO DAILY 11/22/15 04/08/17 traMADol [Ultram] 50 mg PO Q4-6H PRN 11/22/15 04/08/17 Trospium Chloride 20 mg PO BID 05/28/16 04/09/17 Alprazolam [Alprazolam] 0.5 mg PO Q6H PRN 10/30/16 04/09/17 Atorvastatin Calcium 40 mg PO 2100 10/30/16 04/09/17 Metformin HCl [Metformin HCl] 1,000 mg PO BID 10/30/16 04/09/17 Multivitamin [Multivitamins] 1 tab PO DAILY 10/30/16 04/08/17 Pantoprazole [Protonix] 40 mg PO DAILY 10/30/16 04/09/17 Aspirin Chewable [St Ciro 162 mg PO DAILY 04/08/17 04/08/17 Aspirin] Insulin Lispro [HumaLOG] 5 unit SUBQ AC 04/08/17 04/08/17 Cholecalciferol (Vitamin D3) 2,000 unit PO DAILY 04/09/17 04/09/17 [Vitamin D] Clopidogrel Bisulfate [Clopidogrel] 75 mg PO DAILY 04/09/17 04/09/17 Duloxetine HCl [Duloxetine HCl] 60 mg PO 2100 04/09/17 04/09/17 Insulin NPH Human Isophane 70 unit SQ BID 04/09/17 04/09/17 [Humulin N] - PHYSICAL EXAM AT DISCHARGE General Appearance: positive: No acute distress, Alert. negative: Anxious Eyes Bilateral: positive: Normal inspection, PERRL, EOMI ENT: positive: ENT inspection nml, No signs of dehydration. negative: Oral lesions, Dry mucous membranes Neck: positive: Nml inspection, Thyroid nml, No JVD, Trachea midline. negative : Thyromegaly Respiratory: positive: Chest non-tender, No respiratory distress, Breath sounds nml. negative: Wheezes, Rales, Rhonchi Cardiovascular: positive: Regular rate & rhythm, No murmur, No gallop. negative : Extrasystoles, Tachycardia Peripheral Pulses: positive: 1+ Abdomen: positive: Non-tender, No organomegaly, Nml bowel sounds, No distention. negative: Tenderness, Guarding Back: positive: Nml inspection. negative: CVA tenderness (R), CVA tenderness (L ) Skin: positive: Color nml, No rash, Warm, Dry. negative: Cyanosis Extremities: positive: Non-tender, Full ROM, Nml appearance, No pedal edema. negative: Calf tenderness Neurologic/Psychiatric: positive: Oriented x3, CN's nml (2-12), Motor nml, Sensation nml, Mood/affect nml - LABS Result Diagrams: 04/08/17 16:00 04/09/17 05:01 - DIAGNOSTIC IMAGING Diagnostic Imaging Results Comments: A chemical stress test was performed and found a partially fixed but partially reversible mid to distal anterior wall perfusion defect. The patient has a left ventricular ejection fraction of 64% with septal hypokinesis and a normal left ventricular cavity size. There is no change to the left ventricular cavity size with stress."
[2017-04-09] MEDS ORDERED: REGADENOSON 0.4 MG/5 ML SYRINGE IVP ONE (11:35)
[2017-04-09 14:28] VITALS: BP 132/98
[2017-04-09] MEDS: ALPRAZolam 0.25 MG TABLET PO SCH (14:30)
[2017-04-09] MEDS: METOPROLOL TARTRATE 25 MG TABLET PO SCH (14:30)
--- NOTE | 2017-04-09 14:51 | Nuclear Medicine Prelim Report ---
Exam: NM MYOCARDIAL PERFUSION STR/RST IMPRESSION: 1. Partially fixed and partially reversible mid to distal anterior wall perfusion defect. Similar loc ation but perhaps slightly less severe compared to the prior exam. 2. Left ventricular ejection fraction of 64%. 3. Septal hypokinesis. 4. Normal left ventricular cavity size, no change with stress. [facility] SITE ID: [id number]
--- NOTE | 2017-04-09 14:54 | Nuclear Medicine Report ---
EXAM: SINGLE-ISOTOPE PHARMACOLOGICAL STRESS TEST WITH REGADENOSON. SINGLE-ISOTOPE AND ONE-DAY REST/STRESS M YOCARDIAL PERFUSION SCANS WITH TOMOGRAPHIC IMAGING, QUANTITATIVE ANALYSIS, WALL MOTION ANALYSIS AND C ALCULATION OF EJECTION FRACTION. EXAM DATE: 04/09/2017 11:30 AM. CLINICAL HISTORY: Chest pain. COMPARISON: 08/15/2016. TECHNIQUE: After the intravenous administration of 10.8 mCi of Tc-99m sestamibi, a rest myocardial perfusion sca n was done with tomography. Motion correction was applied when appropriate. A pharmacological stress was performed with the infusion of 0.4 mg regadenoson per protocol. Accordin g to protocol, 40.5 mCi of Tc-99m sestamibi was injected for stress myocardial perfusion scan. Motion correction was applied when appropriate. Gated tomographic images were obtained for wall motion analysis and computation of left ventricular e jection fraction. FINDINGS: Images show a moderate, partially fixed and partially reversible mid to distal anterior wal l perfusion defect. No other convincing fixed or reversible defects. Wall motion analysis demonstrates septal hypokinesis The left ventricular end-diastolic volume is 75 cc. The left ventricular end-systolic volume is 27 cc . The left ventricular ejection fraction is calculated to be 64%. IMPRESSION: 1. Partially fixed and partially reversible mid to distal anterior wall perfusion defect. Similar loc ation but perhaps slightly less severe compared to the prior exam. 2. Left ventricular ejection fraction of 64%. 3. Septal hypokinesis. 4. Normal left ventricular cavity size, no change with stress. [facility] Referring Provider Line: [phone] SITE ID: [id number]
[2017-04-09] MEDS: INSULIN GLARGINE 300 UNIT/3 ML PEN SUBQ SCH (15:06)
--- NOTE | 2017-04-09 15:49 | Discharge Plan ---
Discharge Plan Disposition: 01 Home, Self Care Condition: Fair No Smoking: If you smoke, Please STOP! Call for help. Follow-up with: Irma Waters MD [Primary Care Provider] -
[2017-04-09] MEDS ORDERED: ATORVASTATIN 40 MG TABLET PO SCH (21:00)
== END 2017-04-09 16:35 | disposition home or self-care (01) ==
LOC: ED 15:41 → OBS 18:10
PROVIDERS: ADMIT Hospitalist; ATTEND Hospitalist
DX: I25.110 Atherosclerotic heart disease of native coronary artery with unstable angina pectoris (principal); G44.221 Chronic tension-type headache, intractable; E11.9 Type 2 diabetes mellitus without complications; I10 Essential (primary) hypertension; E78.00 Pure hypercholesterolemia, unspecified; E03.9 Hypothyroidism, unspecified; F31.9 Bipolar disorder, unspecified; F41.0 Panic disorder [episodic paroxysmal anxiety]; K21.9 Gastro-esophageal reflux disease without esophagitis; G47.30 Sleep apnea, unspecified; I25.2 Old myocardial infarction; Z95.5 Presence of coronary angioplasty implant and graft; Z95.1 Presence of aortocoronary bypass graft; Z86.73 Personal history of transient ischemic attack (TIA), and cerebral infarction without residual deficits; Z79.82 Long term (current) use of aspirin; Z79.84 Long term (current) use of oral hypoglycemic drugs; Z79.4 Long term (current) use of insulin; Z87.891 Personal history of nicotine dependence; Z85.3 Personal history of malignant neoplasm of breast
CPT/HCPCS: 36415; 71010; 78452; 80048; 80053; 80061; 81003; 83036; 83690; 84484; 85025; 93005; 93017; 99218; 99284; A9270; A9500; J1815; J2785; 81001; 87086; 99285

== ENCOUNTER 2017-07-22 12:54 | Emergency (ER) | payer BC, MEDICARE ==
[2017-07-22] MEDS ORDERED: ASPIRIN CHEW 81 MG TABLET PO STA (13:32)
[2017-07-22] MEDS ORDERED: NITROGLYCERIN 2% PASTE TOP STA (13:32)
[2017-07-22 13:40] LABS: BASOPHILS # (AUTO) 0.1 10^3/uL (0.0-0.1); EOSINOPHILS # (AUTO) 0.3 10^3/uL (0.0-0.7); EOSINOPHILS % (AUTO) 4.1 %; HGB - HEMOGLOBIN 12.9 g/dL (12.0-16.0); LYMPHOCYTES # (AUTO) 3.1 10^3/uL (1.5-3.5); LYMPHOCYTES % (AUTO) 39.9 %; MEAN CORPUSCULAR HEMOGLOBIN 25.4 pg (27.0-31.0); MEAN CORPUSCULAR HGB CONC 32.8 g/dL (32.0-36.0); MEAN CORPUSCULAR VOLUME 77.5 fL (81.0-99.0); MEAN PLATELET VOLUME 7.6 fL (7.9-10.8); MONOCYTES # (AUTO) 0.6 10^3/uL (0.0-1.0); MONOCYTES % (AUTO) 8.2 %; NEUTROPHILS # (AUTO) 3.7 10^3/uL (1.5-6.6); NEUTROPHILS % (AUTO) 46.8 %; PLT - PLATELET COUNT 365 10^3/uL (130-450); RED BLOOD COUNT 5.07 10^6/uL (4.20-5.40); RED CELL DISTRIBUTION WIDTH 15.5 % (12.0-15.0); WHITE BLOOD COUNT 7.9 x10^3/uL (4.8-10.8)
--- NOTE | 2017-07-22 13:44 | ED Physician Documentation ---
PD HPI CHEST PAIN - Stated complaint Stated Complaint: FAST HEART RATE, NAUSEA - Chief complaint Chief Complaint: Cardiac - History obtained from History obtained from: Patient, Family - History of Present Illness Timing - onset: Other (This is a very pleasant 62-year-old woman with history of coronary bypass in August of last year, she has felt like her heart has been pounding and feeling it more in her back all day today. She was short of breath yesterday while mowing the lawn but is not short of breath currently and there is some nausea with it. Of note she was admitted here for unstable angina in March of last year, she had a stress test at that time which showed a partially fixed and partially reversible mid to distal anterior wall perfusion defect, with a similar location but perhaps slightly less severe compared to the prior exam which was prior to her CABG. She followed up with her shot examiner the next month but it sounds like he did not have the results of the stress test. Of note she did drink full caffeine coffee this morning compared to half caffeine which she is usually having.) Review of Systems Ten Systems: 10 systems reviewed and negative Constitutional: denies: Fever, Chills Cardiac: reports: Chest pain / pressure, Palpitations. denies: Pedal edema, Calf pain Respiratory: reports: Dyspnea GI: reports: Nausea. 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: Breast cancer : Incontinence HEENT: None Psych: Depression, Anxiety, Bipolar disorder, Panic attacks, Claustrophobia Musculoskeletal: Osteoarthritis, Chronic back pain Derm: None - Past Surgical History Past Surgical History: Yes General: Cholecystectomy, Appendectomy, Colonoscopy, Other Ortho: Carpal Tunnel surgery, Other /ASPHALT TAMPER: Tubal ligation, Hysterectomy, Mastectomy Cardiovascular: CABG, Coronary stent, Cardiac catheterization, Other HEENT: Cataracts, Tonsil/Adenoidectomy - Present Medications Home Medications: Ambulatory Orders Medication Instructions Recorded Confirmed Duloxetine HCl [Cymbalta] 60 mg PO DAILY 08/15/14 04/08/17 Levothyroxine Sodium [Synthroid] 300 mcg PO DAILY 08/15/14 04/09/17 Losartan [Cozaar] 25 mg PO DAILY 08/15/14 04/08/17 Metoprolol Tartrate [Lopressor] 50 mg PO BID 11/22/15 04/09/17 Vitamin B Complex 1 each PO DAILY 11/22/15 04/08/17 traMADol [Ultram] 50 mg PO Q4-6H PRN 11/22/15 04/08/17 Trospium Chloride 20 mg PO BID 05/28/16 04/09/17 Alprazolam 0.5 mg PO Q6H PRN 10/30/16 04/09/17 Atorvastatin Calcium 40 mg PO 2100 10/30/16 04/09/17 Metformin HCl 1,000 mg PO BID 10/30/16 04/09/17 Multivitamin [Multivitamins] 1 tab PO DAILY 10/30/16 04/08/17 Pantoprazole [Protonix] 40 mg PO DAILY 10/30/16 04/09/17 Aspirin Chewable [St Ciro 162 mg PO DAILY 04/08/17 04/08/17 Aspirin] Insulin Lispro [Humalog] 5 unit SUBQ AC 04/08/17 04/08/17 Cholecalciferol (Vitamin D3) 2,000 unit PO DAILY 04/09/17 04/09/17 [Vitamin D3] Clopidogrel Bisulfate [Clopidogrel] 75 mg PO DAILY 04/09/17 04/09/17 Duloxetine HCl 60 mg PO 2100 04/09/17 04/09/17 Insulin Aspart [NovoLOG] 3 - 11 unit SUBQ 04/09/17 0800,1200,1700,2100 pen Insulin Glargine [Lantus Solostar] 70 unit SUBQ BID pen 04/09/17 Insulin NPH Human Isophane 70 unit SQ BID 04/09/17 04/09/17 [Humulin N] Losartan [Cozaar] 25 mg PO DAILY tablet 04/09/17 Nitroglycerin [Nitrostat] 0.4 mg SL Q5MIN PRN tablet 04/09/17 Polyethylene Glycol 3350 [Miralax] 17 gm PO DAILY packet 04/09/17 - Allergies Allergies/Adverse Reactions: Allergies Allergy/AdvReac Type Severity Reaction Status Date / Time azithromycin Allergy Edema Verified 10/30/16 11:09 [From Zithromax Z-Robin] Penicillins Allergy Anaphylaxis Verified 10/30/16 11:09 vancomycin Allergy Edema Verified 10/30/16 11:09 erythromycin base AdvReac Emesis Verified 10/30/16 11:09 sulfacetamide sodium * AdvReac Unknown Verified 10/30/16 11:09 [From Sulfamide] - Social History Does the pt smoke?: No Smoking Status: Never smoker Does the pt drink ETOH?: Yes Does the pt have substance abuse?: No - Family History Family history: reports: Non contributory - Immunizations Immunizations are current?: Yes - POLST Patient has POLST: No POLST Status: Full Code PD ED PE NORMAL - Vitals Vital signs reviewed: Yes - General General: Alert and oriented X 3, No acute distress - HEENT HEENT: PERRL, EOMI - Neck Neck: Supple, no meningeal sign, No bony TTP - Cardiac Cardiac: RRR, No murmur. No: Strong equal pulses (She lacks a radial pulse on the left because she had radial artery harvesting from they are for prior CABG.) - Respiratory Respiratory: No respiratory distress, Clear bilaterally - Abdomen Abdomen: Normal bowel sounds, Soft, Non tender - Back Back: No CVA TTP, No spinal TTP - Derm Derm: Normal color, Warm and dry - Extremities Extremities: No edema, No calf tenderness / cord - Neuro Neuro: Alert and oriented X 3, Normal speech Results - Vitals Vitals: Vital Signs - 24 hr 07/22/17 12:58 Temperature 36.4 C L Heart Rate 75 Respiratory 16 Rate Blood Pressure 173/79 H O2 Saturation 100 Oxygen O2 Source Room air - EKG (time done) 1301 Rate: Rate (enter#) (69) Rhythm: NSR [place]: Normal Intervals: Normal IN Ischemia: Non specific changes (She has a sub-millimeter ST elevation in 3 only which is new since March of last year.) Computer interpretation: Agree with computer - Labs Labs: Laboratory Tests 07/22/17 07/22/17 07/22/17 13:15 13:15 13:15 WBC 7.9 RBC 5.07 Hgb 12.9 Hct 39.3 MCV 77.5 L MCH 25.4 L MCHC 32.8 RDW 15.5 H Plt Count 365 MPV 7.6 L Neut # 3.7 Lymph # 3.1 [place] # 0.6 Eos # 0.3 Baso # 0.1 Absolute Nucleated RBC 0.00 Nucleated RBC % 0.0 D-Dimer Sodium 134 L Potassium 3.9 Chloride 97 L Carbon Dioxide 27 Anion Gap 10.0 BUN 13 Creatinine 0.7 Estimated GFR (MDRD) 85 L Glucose 128 H Calcium 9.5 Total Bilirubin 0.4 AST 47 H ALT 50 Alkaline Phosphatase 71 Troponin I < 0.04 Total Protein 8.0 Albumin 4.4 Globulin 3.6 Albumin/Globulin Ratio 1.2 Lipase 18 L 07/22/17 13:15 WBC RBC Hgb Hct MCV MCH MCHC RDW Plt Count MPV Neut # Lymph # [place] # Eos # Baso # Absolute Nucleated RBC Nucleated RBC % D-Dimer < 200.0 L Sodium Potassium Chloride Carbon Dioxide Anion Gap BUN Creatinine Estimated GFR (MDRD) Glucose Calcium Total Bilirubin AST ALT Alkaline Phosphatase Troponin I Total Protein Albumin Globulin Albumin/Globulin Ratio Lipase PD MEDICAL DECISION MAKING - ED course ED course: 62-year-old woman with pounding palpitations more than chest pain per se. Her EKG is really not ischemic, her biomarkers are negative despite long time course. Case was discussed by phone with Dr. Darby are on-call for her shot examiner. The prior stress test was reviewed and he was not too concerned immediately but asked me to give her a copy of the stress test which I did to aid in follow-up. Departure - Departure Disposition: 01 Home, Self Care Clinical Impression: Palpitations Coronary artery disease Qualifiers: Coronary Disease-Associated Artery/Lesion type: [place] artery [place] vs. transplanted heart: [place] heart Associated angina: without angina Qualified Code(s): I25.10 - Atherosclerotic heart disease of [place] coronary artery without angina pectoris Condition: Good Record reviewed to determine appropriate education?: Yes Instructions: ED Chest Pain NonCardiac Comments: FOLLOWUP WITH YOUR LOCAL SALES ASSOCIATE, CALL TOMORROW FOR APPOINTMENT, TAKE THE COPY OF THE STRESS TEST WITH YOU. RETURN FOR NEW OR WORSENING SYMPTOMS
[2017-07-22 13:49] LABS: ALBUMIN 4.4 g/dL (3.2-5.5); ALBUMIN/GLOBULIN RATIO 1.2 (1.0-2.2); BILIRUBIN,TOTAL 0.4 mg/dL (0.2-1.0); CALCIUM 9.5 mg/dL (8.5-10.3); CREATININE 0.7 mg/dL (0.4-1.0)
[2017-07-22 15:17] VITALS: BP 126/78
--- NOTE | 2017-07-22 15:30 | XRAY Report ---
EXAM: CHEST RADIOGRAPHY EXAM DATE: 07/22/2017 01:55 PM. CLINICAL HISTORY: Chest pain. COMPARISON: 04/08/2017. TECHNIQUE: 2 views. FINDINGS: Lungs/Pleura: No focal opacities evident. No pleural effusion. No pneumothorax. Normal volumes. Mediastinum: Previous median sternotomy noted. The heart size is normal. The aorta appears normal in caliber. Other: Surgical clips overlie the right breast and axilla. IMPRESSION: Negative for an acute cardiopulmonary abnormality. [facility] Referring Provider Line: [phone] SITE ID: [id number]
== END 2017-07-22 15:20 | disposition home or self-care (01) ==
LOC: ED 12:54
DX: I25.10 Atherosclerotic heart disease of native coronary artery without angina pectoris (principal); R00.2 Palpitations; I10 Essential (primary) hypertension; Z95.1 Presence of aortocoronary bypass graft; I25.2 Old myocardial infarction; G47.30 Sleep apnea, unspecified; E78.00 Pure hypercholesterolemia, unspecified; E03.9 Hypothyroidism, unspecified; E11.9 Type 2 diabetes mellitus without complications; Z79.4 Long term (current) use of insulin; K21.9 Gastro-esophageal reflux disease without esophagitis; Z86.73 Personal history of transient ischemic attack (TIA), and cerebral infarction without residual deficits; Z85.3 Personal history of malignant neoplasm of breast; Z86.010 Personal history of colon polyps; M19.90 Unspecified osteoarthritis, unspecified site; Z79.82 Long term (current) use of aspirin
CPT/HCPCS: 36415; 71046; 80053; 83690; 84484; 85025; 85379; 93005; 99283; 99284; A9270

== ENCOUNTER 2017-12-08 20:32 | Observation (INO) | payer BC, MEDICARE ==
[2017-12-08] MEDS ORDERED: NITROGLYCERIN SL 0.4 MG TABLET SL STA (20:55)
[2017-12-08] MEDS ORDERED: MORPHINE 2 MG/ML SYRINGE IVP STA (20:56)
--- NOTE | 2017-12-08 20:57 | ED Physician Documentation ---
PD HPI CHEST PAIN - Stated complaint Stated Complaint: CHEST PX - Chief complaint Chief Complaint: Cardiac - History obtained from History obtained from: Patient, Family - History of Present Illness Timing - onset: How many hours ago (1) Timing - onset during: Rest Timing - duration: Hours (1) Timing - details: Abrupt onset Pain level max: 4 Pain level now: 4 Quality: Sharp, Pain Location: Left chest Radiation: Back Improved by: Other (sitting up) Worsened by: Other (lying down) Associated symptoms: No: Shortness of air, Diaphoresis, Nausea, Vomiting, Feeling faint / dizzy, General Weakness, Palpitations, Cough Similar symptoms before: Diagnosis (CAD, CABG in 2017 at [facility]. 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: Breast cancer : Incontinence HEENT: None Psych: Depression, Anxiety, Bipolar disorder, Panic attacks, Claustrophobia Musculoskeletal: Osteoarthritis, Chronic back pain Derm: None - Past Surgical History Past Surgical History: Yes General: Cholecystectomy, Appendectomy, Colonoscopy, Other Ortho: Carpal Tunnel surgery, Other /OIL BAY TECHNICIAN: Tubal ligation, Hysterectomy, Mastectomy Cardiovascular: CABG, Coronary stent, Cardiac catheterization, Other HEENT: Cataracts, Tonsil/Adenoidectomy - Present Medications Home Medications: Ambulatory Orders Medication Instructions Recorded Confirmed Duloxetine HCl [Cymbalta] 60 mg PO DAILY 08/15/14 04/08/17 Levothyroxine Sodium [Synthroid] 300 mcg PO DAILY 08/15/14 04/09/17 Losartan [Cozaar] 25 mg PO DAILY 08/15/14 04/08/17 Metoprolol Tartrate [Lopressor] 50 mg PO BID 11/22/15 04/09/17 Vitamin B Complex 1 each PO DAILY 11/22/15 04/08/17 traMADol [Ultram] 50 mg PO Q4-6H PRN 11/22/15 04/08/17 Trospium Chloride 20 mg PO BID 05/28/16 04/09/17 Alprazolam 0.5 mg PO Q6H PRN 10/30/16 04/09/17 Atorvastatin Calcium 40 mg PO 2100 10/30/16 04/09/17 Metformin HCl 1,000 mg PO BID 10/30/16 04/09/17 Multivitamin [Multivitamins] 1 tab PO DAILY 10/30/16 04/08/17 Pantoprazole [Protonix] 40 mg PO DAILY 10/30/16 04/09/17 Aspirin Chewable [St Ciro 162 mg PO DAILY 04/08/17 04/08/17 Aspirin] Insulin Lispro [Humalog] 5 unit SUBQ AC 04/08/17 04/08/17 Cholecalciferol (Vitamin D3) 2,000 unit PO DAILY 04/09/17 04/09/17 [Vitamin D3] Clopidogrel Bisulfate [Clopidogrel] 75 mg PO DAILY 04/09/17 04/09/17 Duloxetine HCl 60 mg PO 209904/09/17 04/09/17 Insulin Aspart [NovoLOG] 3 - 11 unit SUBQ 04/09/17 0800,1200,1700,2100 pen Insulin Glargine [Lantus Solostar] 70 unit SUBQ BID pen 04/09/17 Insulin NPH Human Isophane 70 unit SQ BID 04/09/17 04/09/17 [Humulin N] Losartan [Cozaar] 25 mg PO DAILY tablet 04/09/17 Nitroglycerin [Nitrostat] 0.4 mg SL Q5MIN PRN tablet 04/09/17 Polyethylene Glycol 3350 [Miralax] 17 gm PO DAILY packet 04/09/17 - Allergies Allergies/Adverse Reactions: Allergies Allergy/AdvReac Type Severity Reaction Status Date / Time azithromycin Allergy Edema Verified 12/08/17 20:44 [From Zithromax Z-Robin] Penicillins Allergy Anaphylaxis Verified 12/08/17 20:44 vancomycin Allergy Edema Verified 12/08/17 20:44 erythromycin base AdvReac Emesis Verified 12/08/17 20:44 sulfacetamide sodium * AdvReac Unknown Verified 12/08/17 20:44 [From Sulfamide] - Social History Does the pt smoke?: No Smoking Status: Never smoker Does the pt drink ETOH?: Yes Does the pt have substance abuse?: No - Immunizations Immunizations are current?: Yes - POLST Patient has POLST: No POLST Status: Full Code PD ED PE NORMAL - Vitals Vital signs reviewed: Yes - General General: Alert and oriented X 3, No acute distress - HEENT HEENT: PERRL, Moist mucous membranes - Neck Neck: Supple, no meningeal sign - Cardiac Cardiac: RRR, Strong equal pulses - Respiratory Respiratory: No respiratory distress, Clear bilaterally - Abdomen Abdomen: Soft, Non tender, Non distended - Derm Derm: Warm and dry - Extremities Extremities: No calf tenderness / cord - Neuro Neuro: Alert and oriented X 3 - Psych Psych: Normal mood, Normal affect Results - Vitals Vitals: Vital Signs - 24 hr 12/08/17 12/08/17 12/08/17 20:41 21:05 21:10 Temperature 36.5 C Heart Rate 62 69 67 Respiratory 16 24 24 Rate Blood Pressure 143/70 H 119/65 120/66 O2 Saturation 98 95 94 12/08/17 12/08/17 21:30 21:49 Temperature Heart Rate 70 62 Respiratory 24 25 H Rate Blood Pressure 124/65 111/61 O2 Saturation 93 95 Oxygen O2 Source Room air - EKG (time done) 2049 Rate: Rate (enter#) (62) Rhythm: NSR [place]: Normal Intervals: Normal ND, RBBB QRS: Normal Compare to prior EKG: Unchanged from prior EKG - Labs Labs: Laboratory Tests 12/08/17 12/08/17 12/08/17 20:58 20:58 20:58 WBC 6.5 RBC 4.80 Hgb 12.3 Hct 37.9 MCV 78.9 L MCH 25.7 L MCHC 32.5 RDW 15.3 H Plt Count 301 MPV 7.3 L Neut # (Auto) 2.7 Lymph # (Auto) 2.9 [place] # (Auto) 0.6 Eos # (Auto) 0.3 Baso # (Auto) 0.1 Absolute Nucleated RBC 0.00 Nucleated RBC % 0.0 Sodium 134 L Potassium 4.2 Chloride 101 Carbon Dioxide 25 Anion Gap 8.0 BUN 14 Creatinine 0.8 Estimated GFR (MDRD) 73 L Glucose 127 H Calcium 9.8 Total Bilirubin 0.3 AST 32 ALT 31 Alkaline Phosphatase 71 Troponin I < 0.04 Total Protein 7.4 Albumin 4.2 Globulin 3.2 Albumin/Globulin Ratio 1.3 Lipase 30 - Rads (name of study) cxr Radiology: Prelim report reviewed, EMP read contemporaneously, See rad report ( No acute cardiopulmonary process. ) PD MEDICAL DECISION MAKING - ED course Complexity details: reviewed results, re-evaluated patient, considered differential (No ST elevation [place], no aortic dissection, no PE, no tension pneumothorax, no aortic aneurysm), d/w patient, d/w family, d/w aviation consultant ED course: Patient is a 62-year-old female with a history of coronary artery disease and 3 vessel CABG last year. Comes in with stabbing left-sided chest pain today. Given her significant cardiac history, will place in observation for rule out. Patient is well-appearing, nontoxic. Afebrile. No acute findings on EKG or chest x-ray. Discussed the case with Dr. Hansen, hospitalist who accepts. This document was made in part using voice recognition software. While efforts are made to proofread this document, sound alike and grammatical errors may occur. - Sepsis Event Vital Signs: Vital Signs - 24 hr 12/08/17 12/08/17 12/08/17 20:41 21:05 21:10 Temperature 36.5 C Heart Rate 62 69 67 Respiratory 16 24 24 Rate Blood Pressure 143/70 H 119/65 120/66 O2 Saturation 98 95 94 12/08/17 12/08/17 21:30 21:49 Temperature Heart Rate 70 62 Respiratory 24 25 H Rate Blood Pressure 124/65 111/61 O2 Saturation 93 95 Oxygen O2 Source Room air Departure - Departure Disposition: ED Place in Observation Clinical Impression: Chest pain Qualifiers: Chest pain type: unspecified Qualified Code(s): R07.9 - Chest pain, unspecified Condition: Stable Discharge Date/Time: 12/08/17 23:01
[2017-12-08 21:02] LABS: BASOPHILS # (AUTO) 0.1 10^3/uL (0.0-0.1); BASOPHILS % (AUTO) 0.9 %; EOSINOPHILS # (AUTO) 0.3 10^3/uL (0.0-0.7); EOSINOPHILS % (AUTO) 4.3 %; HGB - HEMOGLOBIN 12.3 g/dL (12.0-16.0); LYMPHOCYTES # (AUTO) 2.9 10^3/uL (1.5-3.5); LYMPHOCYTES % (AUTO) 44.1 %; MEAN CORPUSCULAR HEMOGLOBIN 25.7 pg (27.0-31.0); MEAN CORPUSCULAR HGB CONC 32.5 g/dL (32.0-36.0); MEAN CORPUSCULAR VOLUME 78.9 fL (81.0-99.0); MEAN PLATELET VOLUME 7.3 fL (7.9-10.8); MONOCYTES # (AUTO) 0.6 10^3/uL (0.0-1.0); MONOCYTES % (AUTO) 9.1 %; NEUTROPHILS # (AUTO) 2.7 10^3/uL (1.5-6.6); NEUTROPHILS % (AUTO) 41.6 %; PLT - PLATELET COUNT 301 10^3/uL (130-450); RED CELL DISTRIBUTION WIDTH 15.3 % (12.0-15.0); WHITE BLOOD COUNT 6.5 x10^3/uL (4.8-10.8)
--- NOTE | 2017-12-08 21:14 | XRAY Report ---
Procedure Date: 12/08/2017 Accession Number: [id number] / [id number] Procedure: XR - Chest 1 View X-Ray CPT Code: 32617 FULL RESULT: EXAM: CHEST RADIOGRAPHY EXAM DATE: 12/08/2017 09:02 PM. CLINICAL HISTORY: Chest pain. COMPARISON: CHEST 2 VIEW 07/22/2017 CHEST 2 VIEW PA/LAT 08/15/2014. TECHNIQUE: 1 view. FINDINGS: Lungs/Pleura: No focal opacities evident. No pleural effusion. No pneumothorax. Mediastinum: Within exam limitations, the cardiomediastinal contour is normal. Other: Status post median sternotomy. Left breast implant density noted. IMPRESSION: No acute cardiopulmonary process. RADIA
[2017-12-08 21:15] LABS: ALBUMIN 4.2 g/dL (3.2-5.5); ALBUMIN/GLOBULIN RATIO 1.3 (1.0-2.2); BILIRUBIN,TOTAL 0.3 mg/dL (0.2-1.0); CALCIUM 9.8 mg/dL (8.5-10.3); CREATININE 0.8 mg/dL (0.4-1.0); TOTAL PROTEIN 7.4 g/dL (6.7-8.2)
[2017-12-08] MEDS ORDERED: ONDANSETRON ODT 4 MG TABLET TL STA (21:29)
[2017-12-08] MEDS ORDERED: TEMAZEPAM 15 MG CAPSULE PO PRN (22:03)
[2017-12-08] MEDS ORDERED: IBUPROFEN 600 MG TABLET PO PRN (22:03)
[2017-12-08] MEDS ORDERED: SODIUM CHLORIDE FLUSH 0.9% 10 ML SYRINGE IVP PRN (22:03)
[2017-12-08] MEDS ORDERED: NITROGLYCERIN SL 0.4 MG TABLET SL PRN (22:09)
[2017-12-08] MEDS ORDERED: traMADol 50 MG TABLET PO PRN (22:09)
--- NOTE | 2017-12-08 23:48 | HISTORY & PHYSICAL EXAMINATION ---
Chief Complaint - Chief Complaint Chief Complaint: Chest pain History of Present Illness - Admitted From Admitted From:: Home - History Obtained From History obtained from: Patient, emergency department physician - History of Present Illness HPI Comment/Other: Ms. Ángela Poe is a very pleasant 62-year-old white female who has a history of coronary artery disease having had stenting done in 2006 and then again last year in 2017. Unfortunately the stenting done last year was ineffective and the patient subsequently underwent a three-vessel coronary artery bypass graft at [facility]. In addition to her coronary artery disease the patient has a history significant for but not limited to hypertension, diabetes mellitus , hypercholesterolemia, hypertriglyceridemia, and breast cancer. Over the last 2 days the patient has been having increasing shortness of breath with nausea has come and gone. She is also been experiencing a fluttering in her chest and has been feeling exhausted. She has experienced orthopnea today and she's also been short of breath at rest. She discussed this with her who took her to the emergency department for further evaluation. On presentation to the emergency department the patient was found to be short of breath and tachypneic but only had a mildly elevated pressure. Her oxygen saturation rate was 98% on room air. Labs were essentially unremarkable and an initial troponin was negative. Chest x-ray was negative for any acute pathology , and EKG failed to show any ischemic changes. The patient's chest pain which had radiated to her back and have been present for about 45 minutes to an hour resolved after she was given some nitroglycerin. We will admit her to an observation bed on telemetry, monitor her serial troponins, and address any comorbidities or any other new complaints. 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: Breast cancer : reports: Incontinence HEENT: reports: None Psych: reports: Depression, Anxiety, Bipolar disorder, Panic attacks, Claustrophobia Musculoskeletal: reports: Osteoarthritis, Chronic back pain Derm: reports: None MRSA Hx?: No - Past Surgical History General: reports: Cholecystectomy, Appendectomy, Colonoscopy, Other Ortho: reports: Carpal Tunnel surgery, Other /SENIOR SQL DBA: reports: Tubal ligation, Hysterectomy, Mastectomy Cardiovascular: reports: CABG, Coronary stent, Cardiac catheterization, Other HEENT: reports: Cataracts, Tonsil/Adenoidectomy - Family & Social History Family History: Mother: , CAD, Hyperlipidemia, Hypertension, [place], Father : Alive and Well, CAD, Hypertension, Sister: Alive and Well, Hypertension, Brother: Alive and Well, CAD, Other family: Cancer Living arrangement: At home Living Situation: With spouse/s.o., With family - Substance History Use: Uses substance without health or social issues: Tobacco (Quit 1993, 30 py hx), Alcohol (Very rarely will have 1 beer) - POLST Patient has POLST: No POLST Status: Full Code Meds/Allgy - Home Medications Home Medications: Ambulatory Orders Medication Instructions Recorded Confirmed Duloxetine HCl [Cymbalta] 60 mg PO DAILY 08/15/14 04/08/17 Levothyroxine Sodium [Synthroid] 300 mcg PO DAILY 08/15/14 04/09/17 Losartan [Cozaar] 25 mg PO DAILY 08/15/14 04/08/17 Metoprolol Tartrate [Lopressor] 50 mg PO BID 11/22/15 04/09/17 Vitamin B Complex 1 each PO DAILY 11/22/15 04/08/17 traMADol [Ultram] 50 mg PO Q4-6H PRN 11/22/15 04/08/17 Trospium Chloride 20 mg PO BID 05/28/16 04/09/17 Alprazolam 0.5 mg PO Q6H PRN 10/30/16 04/09/17 Atorvastatin Calcium 40 mg PO 2100 10/30/16 04/09/17 Metformin HCl 1,000 mg PO BID 10/30/16 04/09/17 Multivitamin [Multivitamins] 1 tab PO DAILY 10/30/16 04/08/17 Pantoprazole [Protonix] 40 mg PO DAILY 10/30/16 04/09/17 Aspirin Chewable [St Ciro 162 mg PO DAILY 04/08/17 04/08/17 Aspirin] Insulin Lispro [Humalog] 5 unit SUBQ AC 04/08/17 04/08/17 Cholecalciferol (Vitamin D3) 2,000 unit PO DAILY 04/09/17 04/09/17 [Vitamin D3] Clopidogrel Bisulfate [Clopidogrel] 75 mg PO DAILY 04/09/17 04/09/17 Duloxetine HCl 60 mg PO 2100 04/09/17 04/09/17 Insulin Aspart [NovoLOG] 3 - 11 unit SUBQ 04/09/17 0800,1200,1700,2100 pen Insulin Glargine [Lantus Solostar] 70 unit SUBQ BID pen 04/09/17 Insulin NPH Human Isophane 70 unit SQ BID 04/09/17 04/09/17 [Humulin N] Losartan [Cozaar] 25 mg PO DAILY tablet 04/09/17 Nitroglycerin [Nitrostat] 0.4 mg SL Q5MIN PRN tablet 04/09/17 Polyethylene Glycol 3350 [Miralax] 17 gm PO DAILY packet 04/09/17 - Allergies Allergies/Adverse Reactions: Allergies Allergy/AdvReac Type Severity Reaction Status Date / Time azithromycin Allergy Edema Verified 12/08/17 20:44 [From Zithromax Z-Robin] Penicillins Allergy Anaphylaxis Verified 12/08/17 20:44 vancomycin Allergy Edema Verified 12/08/17 20:44 erythromycin base AdvReac Emesis Verified 12/08/17 20:44 sulfacetamide sodium * AdvReac Unknown Verified 12/08/17 20:44 [From Sulfamide] Review of Systems - Constitutional Constitutional: reports: Fatigue, Weakness. denies: Fever, Chills, Malaise, Night sweats - Eyes Eyes: denies: Pain, Irritation, Amaurosis, Blurred vision - Ears, Nose & Throat Ears, Nose & Throat: denies: Ear pain, Tinnitus, Vertigo, Nasal pain, Nasal discharge, Nosebleeds - Cardiovascular Cariovascular: reports: Palpitations, Chest pain, Exertional dyspnea, Decr. exercise tolerance, Orthopnea. denies: Irregular heart rate, Edema, Lightheadedness, Syncope - Respiratory Respiratory: reports: Orthopnea, SOB at rest, SOB with exertion. denies: Cough , Sputum production, Wheezing, Snoring, Hemoptysis - Gastrointestinal Gastrointestinal: reports: Nausea. denies: Abdominal pain, Abdominal distention , Constipation, Diarrhea, Change in bowel habits, Rectal bleeding, Black stools , Bloody stools - Genitourinary Genitourinary: denies: Dysuria, Frequency, Urgency, Hematuria - Musculoskeletal Musculoskeletal: denies: Muscle pain, Back pain, Muscle aches, Stiffness - Integumentary Integumentary: denies: Rash, Pruritis, Lesions, Dryness - Neurological Neurological: reports: General weakness. denies: Focal weakness, Headache, Dizziness, Numbness, Memory problems - Psychiatric Psychiatric: denies: Depression, Anxiety, Suicidal, Hallucinations - Endocrine Endocrine: denies: Polyuria, Polydypsia, Polyphagia - Hematologic/Lymphatic Hematologic/Lymphatic: denies: Anemia, Bruising, Petechiae, Lymphadenopathy - All Other Systems All Other Systems: reports: Reviewed and negative Exam - Vital Signs Reviewed Vital Signs: Yes Vital Signs: Vital Signs x48h Temp Pulse Resp BP Pulse Ox 12/08/17 22:59 36.6 C 66 16 135/63 H 96 - Physical Exam General Appearance: positive: No acute distress, Alert Eyes Bilateral: positive: Normal inspection, PERRL, EOMI, No lid inflammation, Conjunctivae nml, No scleral icterus ENT: positive: ENT inspection nml, Pharynx nml, No signs of dehydration Neck: positive: Nml inspection, Thyroid nml, No JVD, Trachea midline. negative : Thyromegaly Respiratory: positive: Chest non-tender, No respiratory distress, Breath sounds nml. negative: Wheezes, Rales, Rhonchi Cardiovascular: positive: Regular rate & rhythm, No murmur, No gallop. negative : Systolic murmur, Diastolic murmur Peripheral Pulses: positive: 1+ Abdomen: positive: Non-tender, No organomegaly, Nml bowel sounds, No distention. negative: Guarding, Rebound Back: positive: Nml inspection. negative: CVA tenderness (R), CVA tenderness (L ) Skin: positive: Color nml, No rash, Warm, Dry. negative: Cyanosis Extremities: positive: Non-tender, Full ROM, Nml appearance, No pedal edema Neurologic/Psychiatric: positive: Oriented x3, CN's nml (2-12), Motor nml, Sensation nml, Mood/affect nml Conclusion/Plan - Problem List (1) Chest pain Conclusion/Plan: The patient has an extensive history of coronary artery disease including a myocardial infarction, 2 cardiac catheterizations, and a 3 vessel coronary artery bypass graft. She is experiencing chest pain and we will admit her to observation on telemetry and obtain serial troponins to rule out any acute myocardial event. We will give her supplemental oxygen and nitrates as needed. We will repeat her echocardiogram since her last one was done 3 years ago and she has had stenting and the coronary artery bypass grafting since that time. Qualifiers: Chest pain type: unspecified Qualified Code(s): R07.9 - Chest pain, unspecified (2) Coronary artery disease Conclusion/Plan: Patient has a known history of coronary artery disease with stenting done in 2006, and 2017 and a coronary artery bypass graft, three-vessel, done in 2017. We will continue her on her home medications including baby aspirin,Lipitor, losartan, and metoprolol. As needed nitroglycerin is ordered as well. Qualifiers: Coronary Disease-Associated Artery/Lesion type: [place] artery [place] vs. transplanted heart: [place] heart Associated angina: without angina Qualified Code(s): I25.10 - Atherosclerotic heart disease of [place] coronary artery without angina pectoris (3) Anxiety and depression Conclusion/Plan: The patient has a history of anxiety depression and we will order the Xanax and Cymbalta that she takes at home to be available while she is inpatient. (4) Hypertension Conclusion/Plan: The patient's blood pressures have been well managed with the exception of her initial blood pressure in the emergency department. We will continue her on her home dosing of losartan and metoprolol. (5) Hypothyroidism Conclusion/Plan: Patient has a history of hypothyroidism and takes levothyroxine at home. We will continue her on her home dosing and obtain a TSH to assess her therapeutic levels. (6) Type 2 diabetes mellitus Conclusion/Plan: Patient has a history of type 2 diabetes mellitus. We will start her on glargine insulin with sliding scale coverage and obtain a hemoglobin A1c to assess her glycemic control.She has been placed on a 2 g sodium carb controlled diet. Qualifiers: Diabetes mellitus residential insulin use: with director [place] sales use - Lab Results Lab results reviewed: Yes Russ Bones: 12/08/17 20:58 12/08/17 20:58 - EKG Results EKG Interpreted Independently: Yes EKG Comparison: Unchanged from prior EKG (NSR 62) Core Measures - Anticipated LOS I expect patient to be DC'd or transferred within 96 hours.: Yes - DVT/VTE - Prophylaxis VTE/DVT Device ordered at admit?: Yes
[2017-12-09 01:09] LABS: HB2 TOTAL 13.2 g/dL; HEMOGLOBIN A1C 0.84 g/dL
[2017-12-09 03:11] LABS: MEAN CORPUSCULAR HEMOGLOBIN 25.9 pg (27.0-31.0); MEAN CORPUSCULAR HGB CONC 32.6 g/dL (32.0-36.0); MEAN CORPUSCULAR VOLUME 79.4 fL (81.0-99.0); MEAN PLATELET VOLUME 7.4 fL (7.9-10.8); RED BLOOD COUNT 4.62 10^6/uL (4.20-5.40); RED CELL DISTRIBUTION WIDTH 15.2 % (12.0-15.0); WHITE BLOOD COUNT 6.7 x10^3/uL (4.8-10.8)
[2017-12-09 03:21] LABS: CALCIUM 9.3 mg/dL (8.5-10.3); CREATININE 0.7 mg/dL (0.4-1.0)
[2017-12-09] MEDS: SODIUM CHLORIDE FLUSH 0.9% 10 ML SYRINGE IVP SCH ×2 (06:50→08:35)
[2017-12-09] MEDS ORDERED: LEVOTHYROXINE 100 MCG TABLET PO SCH (07:00)
[2017-12-09] MEDS ORDERED: PANTOPRAZOLE 40 MG TABLET PO SCH ×3 (07:00→21:00)
[2017-12-09] MEDS: INSULIN ASPART 300 UNIT/3 ML PEN SUBQ SCH ×2 (08:35→12:18)
[2017-12-09] MEDS ORDERED: LOSARTAN 50 MG TABLET PO SCH (09:00)
[2017-12-09] MEDS ORDERED: POLYETHYLENE GLYCOL 3350 17 GM PACKET PO SCH (09:00)
[2017-12-09] MEDS ORDERED: ASPIRIN CHEW 81 MG TABLET PO SCH (09:00)
[2017-12-09] MEDS ORDERED: METOPROLOL TARTRATE 25 MG TABLET PO SCH (09:00)
[2017-12-09] MEDS ORDERED: CLOPIDOGREL 75 MG TABLET PO SCH (09:00)
[2017-12-09] MEDS ORDERED: IOPAMIDOL-300 100 ML VIAL ONE (12:34)
[2017-12-09 13:04] VITALS: BP 107/57
[2017-12-09] MEDS ORDERED: IOPAMIDOL-300 100 ML VIAL IVP ONE (13:32)
--- NOTE | 2017-12-09 14:14 | CT Report ---
Procedure Date: 12/09/2017 Accession Number: [id number] / [id number] Procedure: CT - Chest Angio (PE) CPT Code: FULL RESULT: EXAM: CT ANGIOGRAM CHEST EXAM DATE: 12/09/2017 01:48 PM. CLINICAL HISTORY: SOB, new RBBB, eval for Pe, hiatal hernia or PNA. COMPARISON: Chest radiograph 12/08/2017. TECHNIQUE: Routine helical imaging was performed through the chest in the pulmonary arterial phase. IV Contrast: ISOVUE 300 80mL. Reconstructions: Coronal 3-D MIP reconstructions.Sagittal and coronal. In accordance with CT protocol optimization, one or more of the following dose reduction techniques were utilized for this exam: automated exposure control, adjustment of mA and/or KV based on patient size, or use of iterative reconstructive technique. FINDINGS: Pulmonary Arteries: Diagnostic quality: Slightly motion degraded but overall adequate through the segmental arteries. No evidence for acute or chronic pulmonary emboli. RV/LV is within normal limits. There is no interventricular septal bowing. There is no reflux of contrast material in the IVC. Lungs/Pleura: No acute infiltrate or consolidation. No pneumothorax or pleural effusion. There is lower lung linear and dependent atelectasis. There is asymmetric elevation of the right hemidiaphragm. The main pulmonary artery is enlarged measuring 3.2 cm in diameter, suggesting pulmonary hypertension. Mediastinum: Normal heart size. Coronary artery calcifications are present. Previous CABG. No hiatal hernia appreciated. Thoracic Aorta: Unremarkable. Upper Abdomen: Unremarkable. Other: There are bilateral breast implants with findings of intracapsular rupture. IMPRESSION: 1. Negative for evidence of pulmonary embolus. 2. Mild lower lung atelectatic changes, no acute intrathoracic abnormality. RADIA
--- NOTE | 2017-12-09 14:57 | Discharge Plan ---
Discharge Plan Disposition: 01 Home, Self Care Condition: Stable Diet: Diabetic Activity Restrictions: Activity as Tolerated Additional Instructions or Follow Up instructions: Resume all your pre-hospital medications. Discuss the fatigue, palpitations and new type of chest pain with your PCP and Manager Furniture. No Smoking: If you smoke, Please STOP! Call for help. Follow-up with: Irma Waters MD [Primary Care Provider] -
[2017-12-09] MEDS ORDERED: INSULIN GLARGINE 300 UNIT/3 ML PEN SUBQ SCH (21:00)
--- NOTE | 2017-12-13 09:16 | DISCHARGE SUMMARY ---
Physician: Shona Glover MD DATE OF ADMISSION: 12/08/2017 DATE OF DISCHARGE: 12/09/2017 HISTORY OF PRESENT ILLNESS: This is a 62-year-old white female with a history of diabetes on insulin, hypothyroidism, obesity, history of prior stents and bypass surgery done approximately a year and a half ago. Patient presented with complaints of palpitations that would come and go at any time despite having stopped caffeine entirely. There was also new fatigue for several days, and chest discomfort unlike her hiatal hernia or prior angina. It was in the left lower chest below her left breast without radiation or associated symptoms. She said she had no sublingual nitroglycerin at home and there were several episodes of this type of pain. Therefore, she came to the emergency room. She was placed in Observation status for blood test and further evaluation of this pain. HOSPITAL COURSE AND DISCHARGE DIAGNOSES 1. Atypical chest pain. Patient herself reported this was unlike her previous angina or hiatal hernia pain. There were no further episodes of either the palpitations, which usually preceded her chest discomfort, or this new chest discomfort. Patient had troponins drawn that were not detectable x3. She was advised to have followup with her PCP and Instructor Flying for further recommendations regarding workup and treatment of this discomfort. 2. History of coronary artery bypass graft. Patient's medications were continued throughout this course. 3. Abnormal EKG. Patient had a new right bundle branch block on EKG. Because of this, troponins were cycled which were negative x3, and she also underwent a CT angio of the chest, and this showed no evidence of pulmonary embolism, and there was also no pericardial effusion. Patient had a resting Echo done that showed mild left ventricular enlargement but normal for her body surface area, left ventricular ejection fraction normal at 55% to 60% without wall motion abnormalities. The right heart was normal in size with normal right ventricular function. There was trace mitral and tricuspid regurgitation. Patient was advised to see her primary care physician and photographic laboratory technician and be considered for pulmonary evaluation because of the new right bundle branch block. 4. Palpitations. Patient reports that these had occurred in the past and were felt to be from caffeine. She has now discontinued caffeine entirely and similar palpitations have returned. There were no significant dysrhythmias noted while she was here on telemetry. Followup with her Instructor Flying was advised. 5. Insulin-dependent diabetes. Patient was on sliding scale insulin and a carbohydrate-controlled diet while here. 6. Anxiety and depression. Patient was on her medications while here. 7. Hypothyroidism. The patient was on her medications while here. ALLERGIES 1. ZITHROMAX. 2. PENICILLIN. 3. VANCOMYCIN. 4. ERYTHROMYCIN. 5. SULFA. MEDICATIONS AT THE TIME OF DISCHARGE No changes were made. 1. Alprazolam 0.5 mg daily. 2. Baby aspirin 2 tablets daily. 3. Lipitor 40 mg every evening. 4. Vitamin D3 at 2000 units daily. 5. Citalopram 40 mg daily. 6. Plavix 75 mg daily. 7. Duloxetine 60 mg every p.m. 8. Fenofibrate 145 mg daily. 9. Insulin as per her protocol. 10. Levothyroxine 300 mcg daily. 11. Losartan 25 mg daily. 12. Metformin 1000 mg b.i.d. 13. Lopressor 25 mg b.i.d. 14. Multivitamin daily. 15. Protonix 40 mg every p.m. 16. Januvia 100 mg daily. 17. Ultram 50 mg daily. 18. Vitamin B complex daily. PHYSICAL EXAMINATION AT DISCHARGE VITAL SIGNS: Stable. Blood pressure was 107/57, pulse of 54 in sinus rhythm, afebrile, room air saturation 93%. HEENT: Unremarkable. NECK: Without JVD or carotid bruits. CHEST: Clear. HEART: Heart sounds normal. ABDOMEN: Obese, normal bowel sounds, nontender. No organomegaly. EXTREMITIES: No clubbing, cyanosis, or edema. NEUROLOGIC: Intact. FOLLOWUP: Followup with her PCP and Instructor Flying in the next 1-2 weeks is advised. Consider a Pulmonary evaluation because of the new right bundle branch block on EKG. Consider Holter monitor and event monitor because of the recurrence of palpitations. CODE STATUS: FULL CODE. Time required to complete this entire discharge, dictation, patient education: 30 minutes. cc: Nadine Judd DO TD: 12/12/2017 17:04 MTDD
== END 2017-12-09 15:13 | disposition home or self-care (01) ==
LOC: ED 20:32 → MS2 22:03
PROVIDERS: ADMIT Hospitalist; ATTEND Internal Medicine
DX: R07.89 Other chest pain (principal); I45.10 Unspecified right bundle-branch block; R00.2 Palpitations; E11.9 Type 2 diabetes mellitus without complications; F41.9 Anxiety disorder, unspecified; F32.9 Major depressive disorder, single episode, unspecified; E03.9 Hypothyroidism, unspecified; E66.9 Obesity, unspecified; Z68.39 Body mass index [BMI] 39.0-39.9, adult; I10 Essential (primary) hypertension; E78.00 Pure hypercholesterolemia, unspecified; I25.10 Atherosclerotic heart disease of native coronary artery without angina pectoris; G47.30 Sleep apnea, unspecified; R32 Unspecified urinary incontinence; K21.9 Gastro-esophageal reflux disease without esophagitis; K44.9 Diaphragmatic hernia without obstruction or gangrene; M19.90 Unspecified osteoarthritis, unspecified site; G89.29 Other chronic pain; M54.9 Dorsalgia, unspecified; Z79.4 Long term (current) use of insulin; Z79.891 Long term (current) use of opiate analgesic; Z79.899 Other long term (current) drug therapy; I25.2 Old myocardial infarction; Z95.1 Presence of aortocoronary bypass graft; Z95.5 Presence of coronary angioplasty implant and graft; Z85.3 Personal history of malignant neoplasm of breast; Z87.891 Personal history of nicotine dependence
CPT/HCPCS: 36415; 71045; 71275; 80048; 80053; 83036; 83690; 84443; 84484; 85025; 85027; 93005; 93306; 96374; 99218; 99284; A9270; J2270; Q0162; Q9967

== ENCOUNTER 2018-03-03 08:24 | Outpatient (CLI) | payer BC, MEDICARE | END 2018-03-03 08:25 | disposition critical access hospital (66) | LOC: EMS 08:24 | PROVIDERS: ATTEND Surgery | DX: R56.9 Unspecified convulsions (principal) | CPT/HCPCS: A0425; A0427 ==

== ENCOUNTER 2018-03-03 08:43 | Observation (INO) | payer BC, MEDICARE ==
[2018-03-03] MEDS ORDERED: ACETAMINOPHEN 325 MG TABLET PO STA (08:51)
--- NOTE | 2018-03-03 08:56 | ED Physician Documentation ---
History of Present Illness - Stated complaint Stated Complaint: SZ - Chief complaint Chief Complaint: Neuro - Additonal information Additional information: hx from EMS and later from pt 63 f BIBA s/p seizure per EMS verbal report (written not scanned in yet): pt has a hx of seizures just [employer] approx she felt the seizure coming, called her who helped her to a chair and had a brief ( 30-90 sec) generalized seizure with LOC and post ictal confusion now she is waking up and complaining of a bad posterior MARTEL no fall no recent illness reported has a hx cardiac dz - per EMS pt was breathing and had a pulse the whole time but she has been to the ER and admitted to [facility] and no prior records indicate a hx of seizures and I went through her bag of meds and she is not on seizure medication she is on asa and plavix among other meds about 10 min after arrival pt more awake and able to provide a better hx she states she urinated and then was curling her hair and developed and severe burning pain to her low R back and leg her face was red her vision was funny felt weak called had a seizure or spell of some sort now cannot speak properly and cannot move her R leg still having back pain and MARTEL denies chest and abd pain arrived and also able to add that sx onset was closer to 740 AM Review of Systems Constitutional: denies: Fever, Chills Cardiac: denies: Chest pain / pressure Respiratory: denies: Dyspnea GI: denies: Abdominal Pain, Vomiting Neurologic: reports: Seizure, Confused, Headache Endocrine: reports: Easy bruising / bleeding (asa plavix) Immunocompromised: denies: Immunocompromised PD PAST MEDICAL HISTORY - Past Medical History Cardiovascular: Hypertension, High cholesterol, Coronary artery disease, [place], Other Respiratory: Sleep apnea, CPAP use, Other Neuro: Migraines, Seizure disorder Endocrine/Autoimmune: Type 2 diabetes, HyPOthyroidism GI: GERD, Hiatal hernia, Colon polyps, Hemorrhoids, Other MYSTERY SHOPPER: Breast cancer : Incontinence HEENT: None Psych: Depression, Anxiety, Bipolar disorder, Panic attacks, Claustrophobia Musculoskeletal: Osteoarthritis, Chronic back pain Derm: None - Past Surgical History Past Surgical History: Yes General: Cholecystectomy, Appendectomy, Colonoscopy, Other Ortho: Carpal Tunnel surgery, Other /MYSTERY SHOPPER: Tubal ligation, Hysterectomy, Mastectomy Cardiovascular: CABG, Coronary stent, Cardiac catheterization, Other HEENT: Cataracts, Tonsil/Adenoidectomy - Present Medications Home Medications: Ambulatory Orders Medication Instructions Recorded Confirmed Levothyroxine Sodium [Synthroid] 300 mcg PO QDAC 08/15/14 03/03/18 Metoprolol Tartrate [Lopressor] 50 mg PO BID 11/22/15 03/03/18 traMADol [Ultram] 25 mg PO BID PRN 11/22/15 03/03/18 Alprazolam 0.5 mg PO DAILY PRN 10/30/16 03/03/18 Atorvastatin Calcium 80 mg PO QPM 10/30/16 03/03/18 Metformin HCl 1,000 mg PO BIDWM 10/30/16 03/03/18 Multivitamin [Multivitamins] 1 tab PO DAILY 10/30/16 03/03/18 Pantoprazole [Protonix] 40 mg PO QPM 10/30/16 03/03/18 Aspirin Chewable [St Ciro 162 mg PO QPM 04/08/17 03/03/18 Aspirin] Clopidogrel Bisulfate [Clopidogrel] 75 mg PO DAILY 04/09/17 03/03/18 Duloxetine HCl 60 mg PO QPM 04/09/17 03/03/18 Losartan [Cozaar] 25 mg PO DAILY tablet 04/09/17 03/03/18 Citalopram Hydrobromide 40 mg PO DAILY 12/09/17 03/03/18 [Citalopram HBr] Fenofibrate Nanocrystallized 145 mg PO QPM 12/09/17 03/03/18 [Fenofibrate] SITagliptin [Januvia] 100 mg PO DAILY 12/09/17 03/03/18 Cyanocobalamin (Vitamin B-12) 1,000 mcg PO DAILY 03/03/18 03/03/18 [Vitamin B-12] - Allergies Allergies/Adverse Reactions: Allergies Allergy/AdvReac Type Severity Reaction Status Date / Time azithromycin Allergy Edema Verified 03/03/18 08:49 [From Zithromax Z-Robin] Penicillins Allergy Anaphylaxis Verified 03/03/18 08:49 vancomycin Allergy Edema Verified 03/03/18 08:49 erythromycin base AdvReac Emesis Verified 03/03/18 08:49 sulfacetamide sodium * AdvReac Unknown Verified 03/03/18 08:49 [From Sulfamide] - Social History Does the pt smoke?: No Smoking Status: Never smoker Does the pt drink ETOH?: Yes Does the pt have substance abuse?: No - Immunizations Immunizations are current?: Yes - POLST Patient has POLST: No POLST Status: Full Code PD ED PE NORMAL - Vitals Vital signs reviewed: Yes - General General: No: Alert and oriented X 3 (alert answering basic question still post ictal) - HEENT HEENT: Atraumatic, PERRL - Neck Neck: No bony TTP - Cardiac Cardiac: RRR - Respiratory Respiratory: No respiratory distress, Clear bilaterally - Abdomen Abdomen: Non tender - Derm Derm: Normal color - Neuro Neuro: clinical support nurse 2-12 intact, No sensory deficit, Other (no movement to RLE). No: Alert and oriented X 3 (confused), No motor deficit (unable to lift right leg from bed), Normal speech (stammering / espressive aphasia) Eye Opening: Spontaneous Motor: Obeys Commands Verbal: Oriented GCS Score: 15 Results - Vitals Vitals: Vital Signs - 24 hr 03/03/18 03/03/18 03/03/18 08:45 10:04 12:00 Temperature 36.9 C Heart Rate 64 66 65 Respiratory 18 15 17 Rate Blood Pressure 141/67 H 148/86 H 115/57 L O2 Saturation 97 96 96 03/03/18 13:00 Temperature Heart Rate 64 Respiratory 22 Rate Blood Pressure 123/64 O2 Saturation 96 Oxygen O2 Source Room air - EKG (time done) 0903 Rate: Rate (enter#) (64) Rhythm: NSR [place]: Normal Intervals: RBBB QRS: Normal - Labs Labs: Laboratory Tests 03/03/18 03/03/18 03/03/18 08:59 08:59 08:59 WBC 8.3 RBC 4.97 Hgb 12.9 Hct 39.2 MCV 78.9 L MCH 26.0 L MCHC 33.0 RDW 15.0 Plt Count 356 MPV 7.9 Neut # (Auto) 5.4 Lymph # (Auto) 1.9 [place] # (Auto) 0.7 Eos # (Auto) 0.3 Baso # (Auto) 0.1 Absolute Nucleated RBC 0.01 Nucleated RBC % 0.1 Sodium 132 L Potassium 4.4 Chloride 101 Carbon Dioxide 22 Anion Gap 9.0 BUN 12 Creatinine 0.8 Estimated GFR (MDRD) 73 L Glucose 167 H Calcium 9.0 Troponin I < 0.04 Urine Color Urine Clarity Urine pH Ur Specific [place] Urine Protein Urine Glucose (UA) Urine Ketones Urine Occult Blood Urine Nitrite Urine Bilirubin Urine Urobilinogen Ur Leukocyte Esterase Ur Microscopic Review Urine Culture Comments 03/03/18 10:50 WBC RBC Hgb Hct MCV MCH MCHC RDW Plt Count MPV Neut # (Auto) Lymph # (Auto) [place] # (Auto) Eos # (Auto) Baso # (Auto) Absolute Nucleated RBC Nucleated RBC % Sodium Potassium Chloride Carbon Dioxide Anion Gap BUN Creatinine Estimated GFR (MDRD) Glucose Calcium Troponin I Urine Color YELLOW Urine Clarity CLEAR Urine pH 6.0 Ur Specific [place] <=1.005 Urine Protein NEGATIVE Urine Glucose (UA) NEGATIVE Urine Ketones NEGATIVE Urine Occult Blood NEGATIVE Urine Nitrite NEGATIVE Urine Bilirubin NEGATIVE Urine Urobilinogen 0.2 (NORMAL) Ur Leukocyte Esterase NEGATIVE Ur Microscopic Review NOT INDICATED Urine Culture Comments NOT INDICATED - Rads (name of study) CTH Radiology: See rad report (no acute) CTA chest Radiology: See rad report (no dissection) CTA AP Radiology: See rad report (no AAA or dissection) PD MEDICAL DECISION MAKING - ED course ED course: pt returned from CT and was more awake and conversant then abruptly about 10 AM developed sx again - unable to speak - expressive aphasia, complaining of burning pain to back, now unable to move either leg at all - but able to raise arms and no facial droop, PERRL states she does indeed have a hz seizures - previously with tonic clonic shaking etc, off meds for years, these sx present after CT are same as this morning [employer] and are not typical of her seizures gave pain meds and dose of ativan is case this atypical seizure activity - sx resolved again will call Ukrainian to speak to neuro about 11 AM and now all of pt neuro sx have completely resolved at time I called teleneuro for eval neuro evaluated pt via telemed screen apparently she also told neuro she has a hx of pseudo seizures and with that has difficulty with speaking neuro does not feel pt should get TPA given that her sx are better and hx is atypical neuro does rec vessel imaging will place in obs for CTA head neck ( or MRI MRA head neck since already got CT IV contrats and is on metformin) and tele and serial neuro checks etc and rec further back eval (CT AP did not show any spine problem) spoke to hospitalist Dr Cruz at 1220 - rec inpt admit Departure - Departure Disposition: [address] [facility] DC/[place]ibal Discharge Date/Time: 03/03/18 14:25
[2018-03-03 09:13] LABS: BASOPHILS # (AUTO) 0.1 10^3/uL (0.0-0.1); BASOPHILS % (AUTO) 0.8 %; EOSINOPHILS # (AUTO) 0.3 10^3/uL (0.0-0.7); EOSINOPHILS % (AUTO) 3.4 %; HGB - HEMOGLOBIN 12.9 g/dL (12.0-16.0); LYMPHOCYTES # (AUTO) 1.9 10^3/uL (1.5-3.5); LYMPHOCYTES % (AUTO) 22.4 %; MEAN CORPUSCULAR VOLUME 78.9 fL (81.0-99.0); MEAN PLATELET VOLUME 7.9 fL (7.9-10.8); MONOCYTES # (AUTO) 0.7 10^3/uL (0.0-1.0); MONOCYTES % (AUTO) 8.8 %; NEUTROPHILS # (AUTO) 5.4 10^3/uL (1.5-6.6); NEUTROPHILS % (AUTO) 64.6 %; PLT - PLATELET COUNT 356 10^3/uL (130-450); RED BLOOD COUNT 4.97 10^6/uL (4.20-5.40); WHITE BLOOD COUNT 8.3 x10^3/uL (4.8-10.8)
[2018-03-03 09:16] LABS: CREATININE 0.8 mg/dL (0.4-1.0)
[2018-03-03] MEDS ORDERED: IOPAMIDOL-300 100 ML VIAL ONE (09:23)
--- NOTE | 2018-03-03 09:24 | CT Report ---
Reason: seizure headache Procedure Date: 03/03/2018 Accession Number: [id number] / [id number] Procedure: CT - Head W/O CPT Code: FULL RESULT: EXAM: CT HEAD EXAM DATE: 03/03/2018 09:10 AM. CLINICAL HISTORY: Seizure headache. COMPARISON: HEAD W/O 08/23/2015 6:55 PM. TECHNIQUE: Multiaxial CT images were obtained from the foramen magnum to the vertex. Reformats: Sagittal and coronal. IV contrast: None. In accordance with CT protocol optimization, one or more of the following dose reduction techniques were utilized for this exam: automated exposure control, adjustment of mA and/or KV based on patient size, or use of iterative reconstructive technique. FINDINGS: Parenchyma: No intraparenchymal hemorrhage. No evidence of mass, midline shift, or CT findings of infarction. [place]valos-white differentiation is distinct. Extraaxial Spaces: Normal for age. No subdural or epidural collections identified. Ventricles: Normal in size and position. Sinuses and Orbits: Imaged paranasal sinuses, orbits, and mastoids show no significant abnormality. Bones: No evidence of fracture or calvarial defect. Other: None. IMPRESSION: Normal head CT. No intracranial hemorrhage or current CT evidence of acute CVA. RADIA The call report notification system was initiated by Dr. Yuan Solorzano at 09:20 hrs on 03/03/18. The above findings were discussed with Samantha Mckeon by Dr. Yuan Solorzano at 09:22 hrs on 03/03/18.
[2018-03-03] MEDS ORDERED: MORPHINE 2 MG/ML CARPUJECT IVP STA (10:05)
[2018-03-03] MEDS ORDERED: LORazepam 2 MG/ML VIAL IVP STA (10:07)
--- NOTE | 2018-03-03 10:26 | CT Report ---
Reason: severe back pain, focal neuro deficit R leg Procedure Date: 03/03/2018 Accession Number: [id number] / [id number] Procedure: CT - Chest Angio (AORTA) CPT Code: FULL RESULT: EXAM: CTA CHEST EXAM DATE: 03/03/2018 09:56 AM. CLINICAL HISTORY: Severe back pain, focal neuro deficit R leg.. COMPARISON: ABDOMEN/PELVIS ANGIO 03/03/2018 9:29 AM CHEST ANGIO 12/09/2017 1:31 PM. TECHNIQUE: Prior to and following intravenous administration of 100 cc Isovue-300, multiplanar 3D/MIP reconstruction of the thoracic aorta was performed. In accordance with CT protocol optimization, one or more of the following dose reduction techniques were utilized for this exam: automated exposure control, adjustment of mA and/or KV based on patient size, or use of iterative reconstructive technique. FINDINGS: The uppermost chest is excluded from the scan range. Vascular Structures: Heart size normal. Prior CABG with RED. Central pulmonary arteries unremarkable. Thoracic aorta normal size and enhancement. No dissection. The sinuses of Valsalva measure 3.6 cm. The sinotubular junction measures 3.1 cm. The proximal ascending thoracic aorta measures 3.3 cm. The distal ascending thoracic aorta measures 3.2 cm. The aortic arch measures 3.0 cm. The proximal descending thoracic aorta measures 2.7 cm. The distal descending thoracic aorta measures 2.3 cm. Lungs/Pleura: Visualized portions are clear. No consolidation, nodules, or edema. No effusions or pneumothorax. Mediastinum: No lymphadenopathy. The esophagus is not dilated. Upper Abdomen: Gallbladder surgically absent. Other: Bilateral breast implants with suggestion of intracapsular rupture. Moderate diffuse idiopathic skeletal hyperostosis in the mid thoracic spine. No fracture or focal bone lesion. IMPRESSION: 1. No thoracic aortic aneurysm or dissection. 2. Visualized lungs are clear. 3. Heart size normal. Prior CABG. RADIA
--- NOTE | 2018-03-03 10:26 | CT Report ---
Reason: severe back pain cant move R leg Procedure Date: 03/03/2018 Accession Number: [id number] / [id number] Procedure: CT - Abdomen/Pelvis Angio CPT Code: FULL RESULT: EXAM: CT ANGIOGRAM ABDOMEN AND PELVIS WITH CONTRAST EXAM DATE: 03/03/2018 09:56 AM. CLINICAL HISTORY: Severe back pain, can't move R leg. COMPARISONS: CHEST ANGIO (AORTA) 03/03/2018 9:35 AM. TECHNIQUE: Routine helical CT angiogram imaging was performed through the abdomen and pelvis in the arterial phase. IV contrast: 100 cc Isovue-300. Enteric contrast: No. Reconstructions: Coronal, sagittal, and 3D MIP reconstructions. In accordance with CT protocol optimization, one or more of the following dose reduction techniques were utilized for this exam: automated exposure control, adjustment of mA and/or KV based on patient size, or use of iterative reconstructive technique. FINDINGS: The anterior abdomen is excluded from the [id number]. Vasculature: Mild aortoiliac atherosclerotic calcification without dissection or aneurysmal dilation. Celiac axis, SMA, MARY, and bilateral renal arteries are widely patent. There is a second diminutive left renal artery just superior to the main left renal artery. Lung Bases: Normal. Abdominal Solid Organs: Early arterial phase images of the visualized portions of the liver, pancreas, spleen, and adrenal glands are unremarkable. Kidneys enhance symmetrically, and there is no hydronephrosis. Biliary system: Gallbladder is surgically absent. No ductal dilatation. Peritoneal Cavity: Visualized portions of unopacified stomach and small bowel are nondistended. The appendix is not clearly identified. There is mild descending and sigmoid colon diverticulosis. There is no pericolonic fat stranding. There is no lymphadenopathy, ascites, or gross pneumoperitoneum. Pelvic Organs: Bladder unremarkable. Uterus surgically absent. Ovaries normal in size. Bones: Diffuse idiopathic skeletal hyperostosis in the lower thoracic spine. There is minimal anterior endplate osteophyte formation and diffuse disk bulging at L2-L3. There is mild right L5-S1 facet osteoarthritis. Other: None. IMPRESSION: 1. Mild aortoiliac atherosclerotic calcification without aneurysm or dissection. 2. Mild degenerative disk disease at L2-L3. 3. Mild right L5-S1 facet osteoarthritis. RADIA
[2018-03-03 11:47] LABS: BILIRUBIN,URINE NEGATIVE (NEGATIVE); GLUCOSE, URINE (UA) NEGATIVE (NEGATIVE); KETONES,URINE (UA) NEGATIVE (NEGATIVE); LEUKOCYTE ESTERASE, URINE NEGATIVE (NEGATIVE); NITRITE,URINE NEGATIVE (NEGATIVE); OCCULT BLOOD,URINE NEGATIVE (NEGATIVE); PROTEIN,URINE NEGATIVE (NEGATIVE); UROBILINOGEN,URINE 0.2 (NORMAL) E.U./dL (NORMAL)
[2018-03-03] MEDS ORDERED: IOPAMIDOL-300 100 ML VIAL IVP ONE (11:58)
[2018-03-03 11:59] LABS: CLARITY,URINE CLEAR (CLEAR)
[2018-03-03] MEDS ORDERED: SODIUM CHLORIDE FLUSH 0.9% 10 ML SYRINGE IVP PRN (13:15)
--- NOTE | 2018-03-03 13:21 | HISTORY & PHYSICAL EXAMINATION ---
Chief Complaint - Chief Complaint Chief Complaint: low back pain, right leg weakness, expressive aphasia History of Present Illness - Admitted From Admitted From:: ED - History Obtained From Records Reviewed: yes History obtained from: chart review, patient Exam Limitations: none - History of Present Illness HPI Comment/Other: Ángela Poe is an obese 63-year old female with a past medical history that is very extensive including hypertension, hyperlipidemia, CAD, IL, 4-vessel CABG in August 2016, EDUARDO on Bipap, seizure disorder, DM type 2-insulin dependent, morbid obesity, GERD, hiatal hernia, colon polyps, hemorrhoids, right breast cancer with double mastectomy, cervical and uterine cancer, thyroidectomy, hypothyroidi sm, urinary incontinence, depression, anxiety, bipolar disorder, panic attacks, clausterphobia, seizures, osteoarthritis, chronic back pain, and right knee DJD with a planned upcoming surgery in April 2018. The patient woke up at 0500 in her usual state of health, ate breakfast, and went back to her bathroom to urinate. She had sudden, low-mid back, sharp pain with right leg weakness. She states that she also just did not feel well and when she looked in the mirror noticed that the whites of her eyes and her cheeks were very red. This pain was nothing she had ever had, and in the next 5 minutes she lost the ability to speak which lasted just a few moments. She went back to lie down, and her thinks she acted more confused, so he called EMS. Once she was in the ED she had evidence of confusion and decreased level of consciousness. She had complaints of a posterior headache and continued low back pain. A head CT showed no infarcts or bleeding. An abdominal CT was completed as she had worrisome complaints of low, sudden, and new back pain, which was negative for dissection. She was given ativan with her seizure history, and a call was made to [facility] neurology for a possible transfer, who suggested a neuro-telepsych evaluation. Based on their evaluation, she was not a candidate for TPA, so she will be admitted for further work up and to rule out TIA. 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 COMMUNICATIONS MANAGER: reports: Breast cancer, Other (cervical cancer) : reports: Incontinence HEENT: reports: Chronic vision loss, Chronic sinusitis Psych: reports: Depression, Anxiety, Bipolar disorder, Panic attacks, Claustrophobia Musculoskeletal: reports: Osteoarthritis, Chronic back pain Derm: reports: None MRSA Hx?: No - Past Surgical History General: reports: Cholecystectomy, Appendectomy, Colonoscopy, Other Ortho: reports: Carpal Tunnel surgery, Other /STRATEGIC COMMUNICATIONS MANAGER: reports: Tubal ligation, Hysterectomy, Mastectomy (double ), Breast implants Cardiovascular: reports: CABG, Coronary stent, Cardiac catheterization, Angioplasty, Other HEENT: reports: Cataracts, Tonsil/Adenoidectomy - Family & Social History Family History: Mother: , CAD, Hyperlipidemia, Hypertension, IL, Father: Alive and Well, CAD, Hypertension, Sister: Alive and Well, Hypertension, Brother: Alive and Well, CAD, Other family: Cancer Living arrangement: At home Living Situation: With spouse/s.o., With family (elderly father) Social History Notes: The patient is to [place] for the past 39 years, has 3 grown children and lives independently with her and elderly father. She has been retired since 2004, and worked in the [employer], [employer], and [employer]. She had previously lived in [place] and moved [place] the [place] to be closer to her family. She enjoys bible reading, and stays busy around the house. She denies the current use of alcohol, tobacco or illicit drugs. She admits to a smoking history from age [age]. She wishes to be a DNR. - Substance History Use: Uses substance without health or social issues: Tobacco (Quit 1993, 30 py hx), Alcohol (Very rarely will have 1 beer) Abuse: Recurrent use of substance despite neg consequences: NONE Dependence: Experiences withdrawal or developed tolerances: NONE - POLST Patient has POLST: No POLST Status: DNR Meds/Allgy - Home Medications Home Medications: Ambulatory Orders Medication Instructions Recorded Confirmed Levothyroxine Sodium [Synthroid] 300 mcg PO QDAC 08/15/14 03/03/18 traMADol [Ultram] 25 mg PO BID PRN 11/22/15 03/03/18 Alprazolam 0.5 mg PO DAILY PRN 10/30/16 03/03/18 Atorvastatin Calcium 80 mg PO QPM 10/30/16 03/03/18 Metformin HCl 1,000 mg PO BIDWM 10/30/16 03/03/18 Multivitamin [Multivitamins] 1 tab PO DAILY 10/30/16 03/03/18 Pantoprazole [Protonix] 40 mg PO QPM 10/30/16 03/03/18 Aspirin Chewable [St Ciro 162 mg PO QPM 04/08/17 03/03/18 Aspirin] Duloxetine HCl 60 mg PO QPM 04/09/17 03/03/18 Losartan [Cozaar] 25 mg PO DAILY tablet 04/09/17 03/03/18 Citalopram Hydrobromide 40 mg PO DAILY 12/09/17 03/03/18 [Citalopram HBr] Fenofibrate Nanocrystallized 145 mg PO QPM 12/09/17 03/03/18 [Fenofibrate] SITagliptin [Januvia] 100 mg PO DAILY 12/09/17 03/03/18 Cyanocobalamin (Vitamin B-12) 1,000 mcg PO DAILY 03/03/18 03/03/18 [Vitamin B-12] Clopidogrel Bisulfate [Clopidogrel] 75 mg PO DAILY #30 tablet 03/04/18 Metoprolol Succinate 25 mg PO BID #60 tab.er.24h 03/04/18 - Allergies Allergies/Adverse Reactions: Allergies Allergy/AdvReac Type Severity Reaction Status Date / Time azithromycin Allergy Edema Verified 03/03/18 08:49 [From Zithromax Z-Robin] Penicillins Allergy Anaphylaxis Verified 03/03/18 08:49 vancomycin Allergy Edema Verified 03/03/18 08:49 erythromycin base AdvReac Emesis Verified 03/03/18 08:49 sulfacetamide sodium * AdvReac Unknown Verified 03/03/18 08:49 [From Sulfamide] Review of Systems - Constitutional Constitutional: reports: Fatigue, Chills (for the past 3-4 days, this is very abnormal), Malaise, Weakness, Poor appetite - Eyes Eyes: reports: Vision loss - Ears, Nose & Throat Ears, Nose & Throat: reports: Postnasal drainage - Cardiovascular Cariovascular: reports: Irregular heart rate, Palpitations, Edema, Lightheadedness, Decr. exercise tolerance - Respiratory Respiratory: reports: Sputum production (thick green, x1 this morning), SOB at rest, SOB with exertion - Gastrointestinal Gastrointestinal: reports: Nausea, Reflux/heartburn - Genitourinary Genitourinary: reports: Frequency, Urgency, Nocturia - Musculoskeletal Musculoskeletal: reports: Back pain (sudden low back pain), Muscle aches - Integumentary Integumentary: reports: Dryness - Neurological Neurological: reports: Focal weakness, Headache (began 3-4 days ago, and again today during her episodes.), Pre-existing deficit, Abnormal gait (due to arthritis in right knee) - Psychiatric Psychiatric: reports: Depression, Anxiety - Endocrine Endocrine: reports: Intolerance to heat - Hematologic/Lymphatic Hematologic/Lymphatic: reports: Anemia - All Other Systems All Other Systems: reports: Reviewed and negative Prior Level of Functionality: Disabled, independently ambulatory. No recent falls and takes care of her elderly father who lives with her and her . Exam - Vital Signs Reviewed Vital Signs: Yes Vital Signs: Vital Signs x48h Temp Pulse Resp BP Pulse Ox 03/03/18 10:04 66 15 148/86 H 96 03/03/18 08:45 36.9 C 64 18 141/67 H 97 - Physical Exam General Appearance: positive: No acute distress, Alert Eyes Bilateral: positive: PERRL, No lid inflammation, No scleral icterus ENT: positive: Pharynx nml, No signs of dehydration Neck: positive: Thyroid nml, No JVD, Trachea midline, Other (large neck circumferance) Respiratory: positive: Chest non-tender, No respiratory distress, Breath sounds nml Cardiovascular: positive: Regular rate & rhythm, No gallop, Systolic murmur, Decreased pulse(s) Peripheral Pulses: positive: 2+ Abdomen: positive: Non-tender, Nml bowel sounds, Other (obese, soft) Back: positive: Nml inspection Skin: positive: No rash, Warm, Dry, Pallor, Other (flushed cheeks) Extremities: positive: Non-tender, Full ROM, No pedal edema Neurologic/Psychiatric: positive: Oriented x3, CN's nml (2-12), Motor nml, Sensation nml, Mood/affect nml, Weakness Reflexes: Bicep (R): 3+, Bicep (L): 3+ (equal), Ankle (R): 3+, Ankle (L): 3+ (equal) Sepsis Event Note (H) - Evaluation Current Stage of Sepsis: Ruled out - Sepsis Criteria Sepsis Criteria: Suspected or Documented Conclusion/Plan - Problem List (1) TIA (transient ischemic attack) Conclusion/Plan: The patient woke up at 0500 in her usual state of health, ate breakfast, and went back to her bathroom to urinate. She had sudden, low-mid back, sharp pain with right leg weakness. She states that she also just did not feel well and when she looked in the mirror noticed that the whites of her eyes and her cheeks were very red. This pain was nothing she had ever had, and in the next 5 minutes she lost the ability to speak which lasted just a few moments. She went back to lie down, and her thinks she acted more confused, so he called EMS. On my exam, the patient is neuro intact with no signs of confusion and had a complete resolution of her symptoms. Plan: Continue TIA work up with echo, tele, neuro checks, and a head MRI/MRA in the AM. (2) Multiple neurological symptoms Conclusion/Plan: The patient had a somewhat odd presentation with just her right leg feeling weak and slightly less sensation, and on my exam, she had full function of her right leg and normal sensation. She also had expressive aphasia at home that lasted about 5 minutes, and again in the presence of the ED staff, that only lasted for just under 1 minute. Plan: TIA work up and monitor for more episodes. (3) Iatrogenic hypothyroidism Conclusion/Plan: The patient admits to a thyroidectomy that was removed due to thyroid nodules and suspected cancer. She is consequently on high dose synthroid of 300mcg daily. Plan: Continue med and check a TSH to rule this out as a cause of her symptoms. (4) Anxiety and depression Conclusion/Plan: The patient is prescribed alprazolam, duloxetine and citalopram at home which are continued here. She has no suicidal ideations, with no history of such activities. Plan: continue to monitor for changes in mood. (5) Type 2 diabetes mellitus Conclusion/Plan: The patient had a low blood sugar of 64mg/dl during her exam and is prescribed Metformin, and insulin at home. Her HgA1C was 7.9%. She states that her AM sugars have been in the 130 range. Plan: Continue to monitor, continue Lantus, SSI, carb controlled diet but HOLD Metformin. 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 She reports that her early AM Sugar today was 130. She does not report any other times of hypoglycemia at home, but has been having chills, and flushed cheeks lately. Plan: Continue to monitor and treat low sugars. - Lab Results Lab results reviewed: Yes Russ Bones: 03/04/18 05:56 03/04/18 05:56 - Diagnostic Imaging Results Diagnostic Imaging Results: positive: Prelim report reviewed, Final report reviewed Core Measures - Anticipated LOS I expect patient to be DC'd or transferred within 96 hours.: Yes - DVT/VTE - Prophylaxis VTE/DVT Device ordered at admit?: Yes VTE/DVT Prophylaxis med ordered at admit?: Yes - Stroke - Rehab Assessment Rehab services assessment to be ordered?: Yes - AMI - Statin at Admit Aspirin Prescribed on Admit: Yes
[2018-03-03] MEDS ORDERED: ALPRAZolam 0.25 MG TABLET PO PRN (16:11)
[2018-03-03] MEDS: traMADol 50 MG TABLET PO PRN ×2 (16:28→20:14)
[2018-03-03] MEDS: SODIUM CHLORIDE FLUSH 0.9% 10 ML SYRINGE IVP SCH ×2 (16:29→23:45)
[2018-03-03] MEDS: INSULIN ASPART 300 UNIT/3 ML PEN SUBQ SCH ×2 (18:03→20:15)
[2018-03-03] MEDS ORDERED: CLOPIDOGREL 300 MG TABLET PO ONE (19:13)
[2018-03-03] MEDS ORDERED: PANTOPRAZOLE 40 MG TABLET PO SCH (21:00)
[2018-03-03] MEDS ORDERED: TEMAZEPAM 7.5 MG CAPSULE PO SCH (21:00)
[2018-03-03] MEDS ORDERED: DULoxetine 30 MG CAPSULE PO SCH (21:00)
[2018-03-03] MEDS ORDERED: INSULIN GLARGINE 300 UNIT/3 ML PEN SUBQ SCH (21:00)
[2018-03-03] MEDS ORDERED: FENOFIBRATE 48 MG TABLET PO SCH (21:00)
[2018-03-03] MEDS ORDERED: ATORVASTATIN 40 MG TABLET PO SCH (21:00)
[2018-03-04 06:17] LABS: BASOPHILS # (AUTO) 0.1 10^3/uL (0.0-0.1); BASOPHILS % (AUTO) 1.1 %; EOSINOPHILS # (AUTO) 0.4 10^3/uL (0.0-0.7); EOSINOPHILS % (AUTO) 7.3 %; HGB - HEMOGLOBIN 12.1 g/dL (12.0-16.0); LYMPHOCYTES # (AUTO) 1.8 10^3/uL (1.5-3.5); MEAN CORPUSCULAR HEMOGLOBIN 25.6 pg (27.0-31.0); MEAN CORPUSCULAR HGB CONC 32.3 g/dL (32.0-36.0); MEAN CORPUSCULAR VOLUME 79.2 fL (81.0-99.0); MEAN PLATELET VOLUME 7.7 fL (7.9-10.8); MONOCYTES # (AUTO) 0.5 10^3/uL (0.0-1.0); MONOCYTES % (AUTO) 9.7 %; NEUTROPHILS # (AUTO) 2.6 10^3/uL (1.5-6.6); NEUTROPHILS % (AUTO) 48.9 %; PLT - PLATELET COUNT 303 10^3/uL (130-450); RED BLOOD COUNT 4.72 10^6/uL (4.20-5.40); RED CELL DISTRIBUTION WIDTH 14.7 % (12.0-15.0); WHITE BLOOD COUNT 5.4 x10^3/uL (4.8-10.8)
[2018-03-04 06:24] LABS: ALBUMIN 4.2 g/dL (3.2-5.5); ALBUMIN/GLOBULIN RATIO 1.4 (1.0-2.2); BILIRUBIN,TOTAL 0.8 mg/dL (0.2-1.0); CALCIUM 9.1 mg/dL (8.5-10.3); CREATININE 0.9 mg/dL (0.4-1.0); MAGNESIUM 1.4 mg/dL (1.7-2.8); PHOSPHORUS 3.8 mg/dL (2.5-4.6); TOTAL PROTEIN 7.1 g/dL (6.7-8.2)
[2018-03-04 06:29] LABS: HB2 TOTAL 12.8 g/dL; HEMOGLOBIN A1C 0.8 g/dL; HEMOGLOBIN A1C % 7.9 % (4.6-6.2)
[2018-03-04] MEDS ORDERED: LEVOTHYROXINE 100 MCG TABLET PO SCH (07:00)
[2018-03-04] MEDS: INSULIN ASPART 300 UNIT/3 ML PEN SUBQ SCH ×2 (08:34→11:31)
[2018-03-04] MEDS: SODIUM CHLORIDE FLUSH 0.9% 10 ML SYRINGE IVP SCH (08:35)
[2018-03-04] MEDS ORDERED: POLYETHYLENE GLYCOL 3350 17 GM PACKET PO SCH (09:00)
[2018-03-04] MEDS ORDERED: METOPROLOL SUCCINATE 25 MG TABLET PO SCH (09:00)
[2018-03-04] MEDS ORDERED: CLOPIDOGREL 75 MG TABLET PO SCH (09:00)
[2018-03-04] MEDS ORDERED: LOSARTAN 50 MG TABLET PO SCH (09:00)
[2018-03-04] MEDS ORDERED: GADOBUTROL 15 MMOL/15 ML VIAL ONE (11:14)
[2018-03-04] MEDS ORDERED: GADOBUTROL 15 MMOL/15 ML VIAL IVP ONE (12:57)
--- NOTE | 2018-03-04 13:11 | MRI Report ---
Reason: CVA, expressive aphasia Procedure Date: 03/04/2018 Accession Number: [id number] / [id number] Procedure: MRI - Angio Neck W/O (MRA) CPT Code: FULL RESULT: EXAM MRA BRAIN EXAM DATE: 03/04/2018 12:25 PM. CLINICAL HISTORY: CVA, expressive aphasia. COMPARISON: None. TECHNIQUE: Multiplanar, multisequence MRA sequences of the brain were performed. Other: None. Post-processing: Multiplanar 3D MIP reconstructions. IV Contrast: None. FINDINGS: Patent distal internal carotid arteries. No evidence for intracranial vertebrobasilar insufficiency. No evidence for proximal occlusion or flow-limiting stenosis of the central segments of the anterior, middle or posterior cerebral arteries. No evidence for aneurysm of the [place]. Patent anterior communicating artery and patent small right posterior communicating artery. IMPRESSION: 1. Unremarkable MRA of the head, no evidence for aneurysm or large artery occlusion or focal flow-limiting stenosis. RADIA
[2018-03-04 13:18] VITALS: BP 147/66
[2018-03-04] MEDS ORDERED: MAGNESIUM OXIDE 400 MG TABLET PO ONE (14:06)
--- NOTE | 2018-03-04 14:44 | Discharge Plan ---
Discharge Plan Disposition: 01 Home, Self Care Condition: Good Prescriptions: Clopidogrel Bisulfate [Clopidogrel] 75 mg PO DAILY #30 tablet Metoprolol Succinate 25 mg PO BID #60 tab.er.24h Diet: Diabetic Activity Restrictions: No Restrictions Shower Restrictions: No Weight Bearing: Full Weight Instruction Topics: Clopidogrel Bisulfate Oral tablet, TIA Additional Instructions or Follow Up instructions: You were admitted for suspected TIA and all testing was normal showing no acute finding. You had recently discontinued your Plavix, and you should resume this and only stop it 7 days prior to any surgery. Your hemoglobin A1C was just slightly elevated at 7.9%. I suggest seeing a diabetic nurse since you were also found to be low at 64 last evening. In reviewing your medications and echocardiogram, you are on the short acting beta mary, which is not ideal and may be leading to your symptoms. I have sent the correct metoprolol to the pharmacy. The echocardiogram shows an EF of 50-55%, which is similar to your last echo with us in November of 2017. You also had no blood clots or holes in your heart that may have caused symptoms. Do not take metformin for three days after getting the IV contrast for the CT scans. Please follow up with your primary care provider within one week and they will get a summary of this stay. Follow-Up Care: [facility] No Smoking: If you smoke, Please STOP! Call for help. Follow-up with: Irma Waters MD [Primary Care Provider] -
--- NOTE | 2018-03-04 14:49 | MRI Report ---
Reason: CVA, expressive aphasia Procedure Date: 03/04/2018 Accession Number: [id number] / [id number] Procedure: MRI - Angio Neck W/WO (MRA) CPT Code: FULL RESULT: EXAM MRA BRAIN EXAM DATE: 03/04/2018 12:25 PM. CLINICAL HISTORY: CVA, expressive aphasia. COMPARISON: None. TECHNIQUE: Multiplanar, multisequence MRA sequences of the brain were performed. Other: None. Post-processing: Multiplanar 3D MIP reconstructions. IV Contrast: None. FINDINGS: Patent distal internal carotid arteries. No evidence for intracranial vertebrobasilar insufficiency. No evidence for proximal occlusion or flow-limiting stenosis of the central segments of the anterior, middle or posterior cerebral arteries. No evidence for aneurysm of the [place]. Patent anterior communicating artery and patent small right posterior communicating artery. IMPRESSION: 1. Unremarkable MRA of the head, no evidence for aneurysm or large artery occlusion or focal flow-limiting stenosis. EXAM MR ANGIOGRAM NECK EXAM DATE: 03/04/2018. CLINICAL HISTORY: CVA. Expressive aphasia. COMPARISON: None. TECHNIQUE: Multiplanar, multisequence MRA sequences of the neck were performed. Other: None. Post-processing: Multiplanar 3D MIP reconstructions. IV Contrast: Without and with 12 mL Gadavist. Evaluation of arterial stenosis is based on a NASCET method of measurement. FINDINGS: The top of the aortic arch and the origins of the great vessels are patent. Moderately tortuous cervical internal carotid arteries. No evidence however for acute abnormality or focal flow-limiting stenosis of the cervical carotid arteries. Distal cervical carotid artery segments are medialized into the retropharyngeal spaces bilaterally. Patent bilateral cervical vertebral arteries without evidence of acute abnormality or focal flow-limiting stenosis. IMPRESSION: No evidence for acute abnormality or flow-limiting stenosis of the cervical vertebral or carotid arteries. RADIA
--- NOTE | 2018-03-04 15:05 | MRI Report ---
Reason: CVA Procedure Date: 03/04/2018 Accession Number: [id number] / [id number] Procedure: MRI - Angio Brain W/O (MRA) CPT Code: FULL RESULT: EXAM MRA BRAIN EXAM DATE: 03/04/2018 12:25 PM. CLINICAL HISTORY: CVA, expressive aphasia. COMPARISON: None. TECHNIQUE: Multiplanar, multisequence MRA sequences of the brain were performed. Other: None. Post-processing: Multiplanar 3D MIP reconstructions. IV Contrast: None. FINDINGS: Patent distal internal carotid arteries. No evidence for intracranial vertebrobasilar insufficiency. No evidence for proximal occlusion or flow-limiting stenosis of the central segments of the anterior, middle or posterior cerebral arteries. No evidence for aneurysm of the [place] of [place]. Patent anterior communicating artery and patent small right posterior communicating artery. IMPRESSION: 1. Unremarkable MRA of the head, no evidence for aneurysm or large artery occlusion or focal flow-limiting stenosis. EXAM MR ANGIOGRAM NECK EXAM DATE: 03/04/2018. CLINICAL HISTORY: CVA. Expressive aphasia. COMPARISON: None. TECHNIQUE: Multiplanar, multisequence MRA sequences of the neck were performed. Other: None. Post-processing: Multiplanar 3D MIP reconstructions. IV Contrast: Without and with 12 mL Gadavist. Evaluation of arterial stenosis is based on a NASCET method of measurement. FINDINGS: The top of the aortic arch and the origins of the great vessels are patent. Moderately tortuous cervical internal carotid arteries. No evidence however for acute abnormality or focal flow-limiting stenosis of the cervical carotid arteries. Distal cervical carotid artery segments are medialized into the retropharyngeal spaces bilaterally. Patent bilateral cervical vertebral arteries without evidence of acute abnormality or focal flow-limiting stenosis. IMPRESSION: No evidence for acute abnormality or flow-limiting stenosis of the cervical vertebral or carotid arteries. RADIA
--- NOTE | 2018-03-04 15:20 | DISCHARGE SUMMARY ---
"Discharge Summary Admit Date: 03/03/18 Discharge Date: 03/04/18 Discharging Provider: VISHNU Ruth Primary Care Provider: Shereen Waters Code Status: Do Not Attempt Resuscitation Condition at Discharge: Good Discharge Disposition: 01 Home, Self Care - DIAGNOSES Admission Diagnoses: Transient cerebral ischemic attack, unspecified (G45.9) Unspecified symptoms and signs involving the nervous system (R29.90) Hypothyroidism due to meds and oth exogenous substances (E03.2) Anxiety disorder, unspecified (F41.9) Type 2 diabetes mellitus without complications (E11.9) Hypoglycemia (E16.2) Discharge Diagnoses with Status of Each Condition: TIA (transient ischemic attack) (G45.9) ruled out. Multiple neurological symptoms (R29.90) resolved. Iatrogenic hypothyroidism (E03.2) chronic, dose changed and sent to the pharmacy based on low TSH of 0.09. Anxiety and depression (F41.9) chronic, stable. Diabetes mellitus type 2, insulin dependent (E11.9) chronic, stable. Hypoglycemia (E16.2) resolved, may have been caused by low TSH. - HPI History of Present Illness: Ángela Poe is an obese 63-year old female with a past medical history that is very extensive including hypertension, hyperlipidemia, CAD, [place], 4-vessel CABG in August 2016, EDUARDO on Bipap, seizure disorder, DM type 2-insulin dependent, morbid obesity, GERD, hiatal hernia, colon polyps, hemorrhoids, right breast cancer w ith double mastectomy, cervical and uterine cancer, thyroidectomy, hypothyroidism, urinary incontinence, depression, anxiety, bipolar disorder, panic attacks, clausterphobia, seizures, osteoarthritis, chronic back pain, and right knee DJD with a planned upcoming surgery in April 2018. The patient woke up at 0500 in her usual state of health, ate breakfast, and went back to her bathroom to urinate. She had sudden, low-mid back, sharp pain with right leg weakness. She states that she also just did not feel well and when she looked in the mirror noticed that the whites of her eyes and her cheeks were very red. This pain was nothing she had ever had, and in the next 5 minutes she lost the a bility to speak which lasted just a few moments. She went back to lie down, and her thinks she acted more confused, so he called EMS. Once she was in the ED she had evidence of confusion and decreased level of consciousness. She had complaints of a posterior headache and continued low back pain. A head CT showed no infarcts or bleeding. An abdominal CT was completed as she had worrisome complaints of low, sudden, and new back pain, which was negative for dissection. She was given ativan with her seizure history, and a call was made to [place] [facility] for a possible transfer, who suggested a neuro-telepsych evaluation. Based on their evaluation, she was not a candidate for TPA, so she will be admitted for further work up and to rule out TIA. - CONSULTS | PROCEDURES Consultations: neuro-telepsych/[place] while in the ED - HOSPITAL COURSE Hospital Course: The patient stayed one night and went through the usual TIA work up. Her work up was negative and all of her presenting symptoms had resolved. She was instructed to re-start her Plavix since she had stopped this 5 days prior to these symptoms and will only need to stay off this 7 days prior to her right knee replacement in April of 2018. After the patient left, a TSH resulted, so I personally called her at home to alert her of this and instructed her to take only 275 mcg daily of the Synthoid rather than 30mcg. She should see her PCP in one week and re-check TSH in 4-6 weeks. She was also instructed to HOLD her Metformin due to the contrast dye. - ALLERGIES Allergies/Adverse Reactions: Allergies Allergy/AdvReac Type Severity Reaction Status Date / Time azithromycin Allergy Edema Verified 03/03/18 08:49 [From Zithromax Z-Robin] Penicillins Allergy Anaphylaxis Verified 03/03/18 08:49 vancomycin Allergy Edema Verified 03/03/18 08:49 erythromycin base AdvReac Emesis Verified 03/03/18 08:49 sulfacetamide sodium * AdvReac Unknown Verified 03/03/18 08:49 [From Sulfamide] - MEDICATIONS Home Medications: Ambulatory Orders Medication Instructions Recorded Confirmed traMADol [Ultram] 25 mg PO BID PRN 11/22/15 03/03/18 Alprazolam 0.5 mg PO DAILY PRN 10/30/16 03/03/18 Atorvastatin Calcium 80 mg PO QPM 10/30/16 03/03/18 Metformin HCl 1,000 mg PO BIDWM 10/30/16 03/03/18 Multivitamin [Multivitamins] 1 tab PO DAILY 10/30/16 03/03/18 Pantoprazole [Protonix] 40 mg PO QPM 10/30/16 03/03/18 Aspirin Chewable [St Ciro 162 mg PO QPM 04/08/17 03/03/18 Aspirin] Duloxetine HCl 60 mg PO QPM 04/09/17 03/03/18 Losartan [Cozaar] 25 mg PO DAILY tablet 04/09/17 03/03/18 Citalopram Hydrobromide 40 mg PO DAILY 12/09/17 03/03/18 [Citalopram HBr] Fenofibrate Nanocrystallized 145 mg PO QPM 12/09/17 03/03/18 [Fenofibrate] SITagliptin [Januvia] 100 mg PO DAILY 12/09/17 03/03/18 Cyanocobalamin (Vitamin B-12) 1,000 mcg PO DAILY 03/03/18 03/03/18 [Vitamin B-12] Clopidogrel Bisulfate [Clopidogrel] 75 mg PO DAILY #30 tablet 03/04/18 Metoprolol Succinate 25 mg PO BID #60 tab.er.24h 03/04/18 Levothyroxine Sodium [Synthroid] 75 mcg PO DAILY #30 tablet 03/05/18 Levothyroxine Sodium [Synthroid] 200 mcg PO DAILY #30 tablet 03/05/18 - PHYSICAL EXAM AT DISCHARGE General Appearance: positive: No acute distress, Alert Eyes Bilateral: positive: PERRL ENT: positive: Pharynx nml, No signs of dehydration Neck: positive: Thyroid nml, No JVD, Trachea midline, Stiff neck (large neck circ.) Respiratory: positive: Chest non-tender, No respiratory distress, Breath sounds nml Cardiovascular: positive: Regular rate & rhythm, No gallop, Systolic murmur, Decreased pulse(s) Peripheral Pulses: positive: 1+ Abdomen: positive: Non-tender, Nml bowel sounds, Other (obese, soft) Back: positive: Nml inspection Skin: positive: No rash, Warm, Dry Extremities: positive: Non-tender, Full ROM, No pedal edema, Joint swelling Neurologic/Psychiatric: positive: Oriented x3, CN's nml (2-12), Motor nml, Sensation nml, Mood/affect nml, Weakness Reflexes: Bicep (R): 3+ (equal), Bicep (L): 3+, Ankle (R): 3+ (equal), Ankle (L): 3+ - LABS Result Diagrams: 03/04/18 05:56 03/04/18 05:56 - DIAGNOSTIC IMAGING Diagnostic Imaging Results: Final report reviewed Diagnostic Imaging Results Comments: Imaging studies were ordered as a head MRI, head/neck MRA, but unfortunately, due to signals collection technician error, the original head MRI was no completed. All imaging that was completed showed no areas of acute infarct or hemorrhage. The echo cardiogram showed nothing significant. - SEPSIS Current Stage of Sepsis: Ruled out Sepsis Criteria: Suspected or Documented - FOLLOW UP Follow Up: Disposition: Home, Self Care Condition: Good Prescriptions: Clopidogrel Bisulfate [Clopidogrel] 75 mg PO DAILY #30 tablet Metoprolol Succinate 25 mg PO BID #60 tab.er.24h Diet: Diabetic Instruction Topics: Clopidogrel Bisulfate Oral tablet, TIA Additional Instructions or Follow Up instructions: You were admitted for suspected TIA and all testing was normal showing no acute finding. You had recently discontinued your Plavix, and you should resume this and only stop it 7 days prior to any surgery. Your hemoglobin A1C was just slightly elevated at 7.9%. I suggest seeing a diabetic nurse since you were also found to be low at 66 last evening. In reviewing your medications and echocardiogram, you are on the short acting beta mary, which is not ideal and may be leading to your symptoms. I have sent the correct metoprolol to the pharmacy. The echocardiogram shows an EF of 50-55%, which is similar to your last echo [facility] in November 2018. You also had no blood clots or holes in your heart that may have caused symptoms. Do not take metformin for three days after getting the IV contrast for the CT scans. Please follow up with your primary care provider within one week and they will get a summary of this stay. - TIME SPENT Time Spent in Discharge (Minutes): 60"
== END 2018-03-04 16:03 | disposition home or self-care (01) ==
LOC: EDUNIT# → ED 08:43 → INTOOBSV 13:15 → MS2 13:15
PROVIDERS: ADMIT Nurse Practitioner; ATTEND Nurse Practitioner
DX: R47.01 Aphasia (principal); R53.1 Weakness; R41.0 Disorientation, unspecified; H53.9 Unspecified visual disturbance; M54.5 Low back pain; M79.604 Pain in right leg; T45.526A Underdosing of antithrombotic drugs, initial encounter; I10 Essential (primary) hypertension; I25.10 Atherosclerotic heart disease of native coronary artery without angina pectoris; G47.33 Obstructive sleep apnea (adult) (pediatric); G43.909 Migraine, unspecified, not intractable, without status migrainosus; G40.409 Other generalized epilepsy and epileptic syndromes, not intractable, without status epilepticus; G89.29 Other chronic pain; E11.649 Type 2 diabetes mellitus with hypoglycemia without coma; E11.42 Type 2 diabetes mellitus with diabetic polyneuropathy; E89.0 Postprocedural hypothyroidism; E78.5 Hyperlipidemia, unspecified; F31.9 Bipolar disorder, unspecified; F41.0 Panic disorder [episodic paroxysmal anxiety]; E66.01 Morbid (severe) obesity due to excess calories; M17.11 Unilateral primary osteoarthritis, right knee; K21.9 Gastro-esophageal reflux disease without esophagitis; I25.2 Old myocardial infarction; Z95.5 Presence of coronary angioplasty implant and graft; Z95.1 Presence of aortocoronary bypass graft; Z79.899 Other long term (current) drug therapy; Z79.82 Long term (current) use of aspirin; Z85.3 Personal history of malignant neoplasm of breast; Z68.41 Body mass index [BMI] 40.0-44.9, adult; Z85.41 Personal history of malignant neoplasm of cervix uteri; Z85.42 Personal history of malignant neoplasm of other parts of uterus; Z86.73 Personal history of transient ischemic attack (TIA), and cerebral infarction without residual deficits; Z87.891 Personal history of nicotine dependence; Z66 Do not resuscitate; Z79.4 Long term (current) use of insulin
CPT/HCPCS: 36415; 70450; 70544; 70549; 71275; 74174; 80048; 80053; 81003; 83036; 83605; 83735; 84100; 84443; 84484; 85025; 93005; 93306; 96374; 96375; 99284; A9270; A9585; G0378; J1815; J2060; Q9967; 70547; 81001; 87086; 99285

== ENCOUNTER 2018-06-11 07:40 | Outpatient (CLI) | payer BC, MEDICARE ==
--- NOTE | 2018-06-11 14:06 | MRI Report ---
Reason: PAIN IN RIGHT SHOULDER Procedure Date: 06/11/2018 Accession Number: [id number] / [id number] Procedure: MRI - Shoulder RT W/O CPT Code: FULL RESULT: EXAM: RIGHT SHOULDER MRI WITHOUT CONTRAST EXAM DATE: 06/11/2018 08:42 AM. CLINICAL HISTORY: Right shoulder pain. COMPARISON: Shoulder 3 view right 05/02/2018 10:38 AM. Chest 2 view 07/22/2017 1:34 PM. Chest angio 12/09/2017 1:31 PM. Chest 1 view 12/08/2017 8:54 PM. TECHNIQUE: Multiplanar, multisequence T1-weighted and fluid-sensitive sequences of the shoulder without contrast. Other: None. FINDINGS: Acromioclavicular Region: The acromion is type II. Small effusion and mild osteoarthritis at the acromioclavicular joint. The coracoacromial and coracoclavicular ligaments are intact. Trace amount of fluid at the subacromial subdeltoid bursa. Glenohumeral Region: No subluxation. No effusion or loose bodies. The articular cartilage is unremarkable. The glenohumeral ligaments and joint capsule are unremarkable. Bone Marrow: There is an approximately 1.2 x 0.9 x 0.8 cm subcortical hypointense lesion at the lesser tuberosity which most likely represents a bone island. No surrounding marrow edema. No acute fracture. Labrum: The labrum is unremarkable on this nonarthrographic study. Musculature/Rotator Cuff: There is supraspinatus and infraspinatus tendinosis. Teres minor and subscapularis tendons are unremarkable. No edema or fatty atrophy. Biceps Tendon: The long head of the biceps tendon and biceps la are intact. Other: The subcutaneous tissues are unremarkable. IMPRESSION: 1. Supraspinatus and infraspinatus tendinosis. 2. A 1.2 x 0.9 x 0.8 cm hypointense lesion at the lesser tuberosity which most likely represents a bone island. 3. Mild acromioclavicular joint osteoarthritis. RADIA MUSCULOSKELETAL RADIOLOGY SECTION
== END 2018-06-11 07:41 | disposition home or self-care (01) ==
LOC: DI 07:40
PROVIDERS: ATTEND Orthopaedic Surgery Sports Medicine
DX: M19.011 Primary osteoarthritis, right shoulder (principal); M75.91 Shoulder lesion, unspecified, right shoulder; M89.9 Disorder of bone, unspecified

== ENCOUNTER 2018-06-19 08:49 | Outpatient (CLI) | payer BC, MEDICARE | END 2018-06-19 08:50 | disposition home or self-care (01) | LOC: LAB 08:49 | PROVIDERS: ATTEND Internal Medicine | DX: E03.9 Hypothyroidism, unspecified (principal) | CPT/HCPCS: 36415; 84443 ==

== ENCOUNTER 2018-09-09 07:51 | Outpatient (CLI) | payer BC, MEDICARE ==
[2018-09-09 08:17] LABS: CREATININE 0.6 mg/dL (0.4-1.0)
[2018-09-09] MEDS ORDERED: GADOBUTROL 10 MMOL/10 ML VIAL ONE (10:52)
[2018-09-09] MEDS ORDERED: GADOBUTROL 10 MMOL/10 ML VIAL IVP ONE (13:56)
--- NOTE | 2018-09-13 08:39 | MRI Report ---
Reason: BREAST PAIN,CANCER Procedure Date: 09/09/2018 Accession Number: [id number] / [id number] Procedure: MRI - Breast W/WO Cont CPT Code: 25906 FULL RESULT: EXAM: Breast W/WO Cont DATE: 09/09/2018 12:00 PM CLINICAL HISTORY: BREAST PAIN,CANCER COMPARISON: None. TECHNIQUE: Sister, T1-weighted imaging, dynamic T1-weighted post contrast imaging and diffusion-weighted imaging was performed. CONTRAST USED: 10 mL Gadavist (gadolinium). POSTPROCESSING: Subtraction dynamic/curve analysis and multiplanar reformations with CAD stream FINDINGS: The examination is limited by motion artifact and rotation as well as inadequate fat suppression due to technical factors. The overall study quality is therefore inadequate and imaging sequences need to be repeated. Right breast: The patient is status post mastectomy with reconstruction. The implant integrity is no longer preserved, implant rupture. There is asymmetric right breast skin thickening anteriorly and medially with abundant dermal and underlying soft tissue edema on STIR sequence. Accurate assessment of enhancement cannot be made to the technical factors described above. Left breast: The patient is status post mastectomy with reconstruction. Implant integrity is no longer preserved, implant rupture. Reliable evaluation of enhancement pattern is compromised due to technical factors. IMPRESSION: Incomplete study. Technical repeat. The patient should return for repeat imaging acquisition. BI-RADS: 0
== END 2018-09-09 07:52 | disposition home or self-care (01) ==
LOC: DI 07:51
PROVIDERS: ATTEND Internal Medicine
DX: C50.919 Malignant neoplasm of unspecified site of unspecified female breast (principal); N64.4 Mastodynia
CPT/HCPCS: 36415; 77049; 82565; A9585

== ENCOUNTER 2018-09-27 08:56 | Outpatient (CLI) | payer BC, MEDICARE ==
[2018-09-27] MEDS ORDERED: GADOBUTROL 10 MMOL/10 ML VIAL ONE (10:12)
[2018-09-27] MEDS: GADOBUTROL 10 MMOL/10 ML VIAL IVP ONE (11:54)
--- NOTE | 2018-09-30 14:03 | MRI Report ---
Reason: BREAST PAIN, HX CA Procedure Date: 09/27/2018 Accession Number: [id number] / [id number] Procedure: MRI - Breast W/WO Cont CPT Code: 79286 FULL RESULT: EXAM: BILATERAL BREAST MRI WITHOUT AND WITH CONTRAST WITH CHEST WITHOUT CONTRAST EXAM DATE: 09/27/2018 11:46 AM CLINICAL HISTORY: Personal history of breast cancer. Pain. NOTE: Technical repeat examination (reference MRI report 09/09/2018) TECHNIQUE: Body Coil: (Limited chest MRI)- Coronal LFOV STIR Dedicated breast coil: Axial - precontrast STIR Axial - postcontrast sequential 1 minute three-dimensional FLASH (x 5) Axial - high-resolution volumetric water stimulation acquisition (VIEWS) CONTRAST USED: 10 cc Gadavist. POSTPROCESSING: Subtraction dynamic/curve analysis and multiplanar reformations with CAD stream FINDINGS: Chest: Prior sternotomy changes noted. Bilateral postmastectomy changes with prepectoral silicone implants in place. The margins of both implants are lobulated; this examination is not tailored to assess for implant integrity. Right breast: Moderate postsurgical fat necrosis is noted. There is no dominant focus of suspicious mass or non-mass enhancement to suggest occult malignancy. There are no pathologically enlarged axillary or internal mammary lymph nodes. Left breast: There is no dominant focus of suspicious mass or non-mass enhancement to suggest occult malignancy. There are no pathologically large axillary or internal mammary lymph nodes. IMPRESSION: RIGHT BREAST: Postmastectomy changes with implant reconstruction. Post surgical fat necrosis. No evidence for occult malignancy. BI-RADs 2 - Benign LEFT BREAST: Post mastectomy changes with implant reconstruction. No evidence for occult malignancy. BI-RADs 2 - Benign Recommend clinical follow-up for breast pain. Benign imaging should not dissuade further evaluation of any suspicious changes. COMMENT: The literature indicates that a negative dynamic breast MRI has a high sensitivity and specificity for the detection of invasive carcinoma (to a threshold of 5 mm). MRI is not reliably sensitive for detecting ductal carcinoma in situ or large invasive neoplasms with only minimal enhancement (i.e. mucinous carcinoma). Normal-appearing lymph nodes on MRI may contain microscopic tumor. Appropriate clinical mammographic and sonographic followup should be performed if recommended. Negative MRI should not dissuade further evaluation of any suspicious mammographic calcifications and/or worrisome palpable masses.
== END 2018-09-27 08:57 | disposition home or self-care (01) ==
LOC: DI 08:56
PROVIDERS: ATTEND Internal Medicine
DX: N64.4 Mastodynia (principal); N64.1 Fat necrosis of breast; Z85.3 Personal history of malignant neoplasm of breast; Z90.13 Acquired absence of bilateral breasts and nipples; Z98.82 Breast implant status
CPT/HCPCS: 77049; A9585

== ENCOUNTER 2019-01-10 16:50 | Emergency (ER) | payer BC, MEDICARE ==
[2019-01-10 17:02] VITALS: BP 147/55
[2019-01-10 17:31] LABS: BILIRUBIN,URINE NEGATIVE (NEGATIVE); GLUCOSE, URINE (UA) NEGATIVE (NEGATIVE); KETONES,URINE (UA) NEGATIVE (NEGATIVE); LEUKOCYTE ESTERASE, URINE MODERATE (NEGATIVE); NITRITE,URINE POSITIVE (NEGATIVE); OCCULT BLOOD,URINE TRACE-LYSE (NEGATIVE); PROTEIN,URINE 30 mg/dL (NEGATIVE); UROBILINOGEN,URINE 0.2 (NORMAL) E.U./dL (NORMAL)
[2019-01-10 17:38] LABS: BACTERIA,URINE Many /HPF (None Seen); CLARITY,URINE HAZY (CLEAR); RBC,URINE 0-5 /HPF (0-5); SQUAMOUS EPITHELIAL CELL,UR RARE Squamous (<= Few); WBC CLUMPS,URINE PRESENT
[2019-01-10] MEDS ORDERED: PHENAZOPYRIDINE 100 MG TABLET PO STA (17:44)
[2019-01-10] MEDS ORDERED: NITROFURANTOIN MACRO 100 MG CAPSULE PO STA (17:44)
--- NOTE | 2019-01-10 17:47 | ED Physician Documentation ---
PD HPI FEMALE - Stated complaint Stated Complaint: FEVER,NAUSEA - Chief complaint Chief Complaint: UTI - History obtained from History obtained from: Patient - History of Present Illness Timing - onset: How many days ago (several) Timing - details: Gradual onset Associated symptoms: Back pain, Dysuria, Urinary frequency Similar symptoms before: Diagnosis (urinary tract infection) - Additional information Additional information: The patient is a 63-year-old insulin-dependent diabetic female who presents with dysuria, frequency, and urinary urgency, that started several days ago and has become worse. Last night she felt chilled and measured a fever at 100.4. She reports associated lower back aching, and nausea, without vomiting. She reports history of similar symptoms in the past with urinary tract infection. The last time was about 4 or 5 months ago. In addition to insulin-dependent diabetes, she has history of coronary artery disease, status post CABG. She is also 2 weeks status post left total knee replacement. Review of Systems Constitutional: reports: Fever (low-grade), Chills (last night) Nose: denies: Congestion Throat: denies: Sore throat Cardiac: denies: Chest pain / pressure Respiratory: denies: Dyspnea, Cough GI: reports: Nausea. denies: Abdominal Pain, Vomiting : reports: Dysuria, Frequency Skin: denies: Rash Musculoskeletal: reports: Back pain (lower back) Neurologic: reports: Headache (mild) PD PAST MEDICAL HISTORY - Past Medical History Past Medical History: Yes Cardiovascular: Hypertension, High cholesterol, Coronary artery disease, [place], Other Respiratory: Sleep apnea, CPAP use, Other Neuro: TIA, Headaches, Migraines, Peripheral neuropathy, Seizure disorder Endocrine/Autoimmune: Type 2 diabetes, HyPOthyroidism GI: GERD, Hiatal hernia, Colon polyps, Hemorrhoids, Other SALES REPRESENTATIVES: Breast cancer, Other : Incontinence HEENT: Chronic vision loss, Chronic sinusitis Psych: Depression, Anxiety, Bipolar disorder, Panic attacks, Claustrophobia Musculoskeletal: Osteoarthritis, Chronic back pain Derm: None - Past Surgical History Past Surgical History: Yes General: Cholecystectomy, Appendectomy, Colonoscopy, Other Ortho: Carpal Tunnel surgery, Other /SALES REPRESENTATIVES: Tubal ligation, Hysterectomy, Mastectomy, Breast implants Cardiovascular: CABG, Coronary stent, Cardiac catheterization, Angioplasty, Other HEENT: Cataracts, Tonsil/Adenoidectomy - Present Medications Home Medications: Ambulatory Orders Medication Instructions Recorded Confirmed traMADol [Ultram] 25 mg PO BID PRN 11/22/15 03/03/18 Alprazolam 0.5 mg PO DAILY PRN 10/30/16 03/03/18 Atorvastatin Calcium 80 mg PO QPM 10/30/16 03/03/18 Metformin HCl 1,000 mg PO BIDWM 10/30/16 03/03/18 Multivitamin [Multivitamins] 1 tab PO DAILY 10/30/16 03/03/18 Pantoprazole [Protonix] 40 mg PO QPM 10/30/16 03/03/18 Aspirin Chewable [St Ciro 162 mg PO QPM 04/08/17 03/03/18 Aspirin] Duloxetine HCl 60 mg PO QPM 04/09/17 03/03/18 Losartan [Cozaar] 25 mg PO DAILY tablet 04/09/17 03/03/18 Citalopram Hydrobromide 40 mg PO DAILY 12/09/17 03/03/18 [Citalopram HBr] Fenofibrate Nanocrystallized 145 mg PO QPM 12/09/17 03/03/18 [Fenofibrate] SITagliptin [Januvia] 100 mg PO DAILY 12/09/17 03/03/18 Cyanocobalamin (Vitamin B-12) 1,000 mcg PO DAILY 03/03/18 03/03/18 [Vitamin B-12] Clopidogrel Bisulfate [Clopidogrel] 75 mg PO DAILY #30 tablet 03/04/18 Metoprolol Succinate 25 mg PO BID #60 tab.er.24h 03/04/18 Levothyroxine Sodium [Synthroid] 75 mcg PO DAILY #30 tablet 03/05/18 Levothyroxine Sodium [Synthroid] 200 mcg PO DAILY #30 tablet 03/05/18 Nitrofurantoin Monohyd/M-Cryst 100 mg PO BID #10 capsule 01/10/19 [Macrobid 100 mg Capsule] Phenazopyridine HCl [Pyridium] 200 mg PO TID PRN #6 tablet 01/10/19 - Allergies Allergies/Adverse Reactions: Allergies Allergy/AdvReac Type Severity Reaction Status Date / Time azithromycin Allergy Edema Verified 01/10/19 16:58 [From Zithromax Z-Robin] Penicillins Allergy Anaphylaxis Verified 01/10/19 16:58 vancomycin Allergy Edema Verified 01/10/19 16:58 erythromycin base AdvReac Emesis Verified 01/10/19 16:58 sulfacetamide sodium * AdvReac Unknown Verified 01/10/19 16:58 [From Sulfamide] - Social History Does the pt smoke?: No Smoking Status: Never smoker Does the pt drink ETOH?: Yes Does the pt have substance abuse?: No - Immunizations Immunizations are current?: Yes - POLST Patient has POLST: No POLST Status: DNR PD ED PE NORMAL - Vitals Vital signs reviewed: Yes (Borderline systolic hypertension initially.) - General General: Alert and oriented X 3, Well developed/nourished - HEENT HEENT: Atraumatic, Pharynx benign - Neck Neck: No adenopathy, No JVD - Cardiac Cardiac: RRR, Other (2/6 systolic murmur.) - Respiratory Respiratory: No respiratory distress, Clear bilaterally - Abdomen Abdomen: Soft, Non tender - Back Back: No CVA TTP - Derm Derm: No rash - Extremities Extremities: No edema, No calf tenderness / cord - Neuro Neuro: Alert and oriented X 3, No motor deficit, Normal speech Results - Vitals Vitals: Oxygen O2 Source Room air - Labs Labs: Microbiology 01/10/19 17:21 Urine Culture - Preliminary Urine,Clean Catch Escherichia Coli Laboratory Tests 01/10/19 17:21 Urine Color YELLOW Urine Clarity HAZY Urine pH 6.0 Ur Specific [place] <=1.005 Urine Protein 30 H Urine Glucose (UA) NEGATIVE Urine Ketones NEGATIVE Urine Occult Blood TRACE-LYSE Urine Nitrite POSITIVE H Urine Bilirubin NEGATIVE Urine Urobilinogen 0.2 (NORMAL) Ur Leukocyte Esterase MODERATE H Urine RBC 0-5 Urine WBC >25 H Urine WBC Clumps PRESENT Ur Squamous Epith Cells RARE Squamous Urine Bacteria Many H Ur Microscopic Review INDICATED Urine Culture Comments INDICATED PD MEDICAL DECISION MAKING - ED course Complexity details: reviewed old records, reviewed results, re-evaluated patient, considered differential, d/w patient ED course: The patient's presentation is most consistent with acute cystitis. Her presentation does not suggest sepsis or pyelonephritis. Urine culture and sensitivity are pending. Treatment in the emergency department included administration of Macrobid 100 mg orally, Pyridium 200 mg orally, and Zofran 4 mg sublingually. She is being discharged with prescriptions for Macrobid and Pyridium. I discussed with her the expected course of illness, antibiotic treatment and outpatient follow-up, as well as potentially worrisome signs or symptoms that should prompt reevaluation in the emergency department. Departure - Departure Disposition: 01 Home, Self Care Clinical Impression: Urinary tract infection Qualifiers: Urinary tract infection type: acute cystitis Hematuria presence: without hematuria Qualified Code(s): N30.00 - Acute cystitis without hematuria Condition: Stable Instructions: ED UTI Cystitis Female Follow-Up: Irma Waters MD [Primary Care Provider] - Prescriptions: Nitrofurantoin Monohyd/M-Cryst [Macrobid 100 mg Capsule] 100 mg PO BID #10 capsule Phenazopyridine HCl [Pyridium] 200 mg PO TID PRN #6 tablet PRN Reason: dysuria Comments: Drink plenty of fluids, including cranberry juice. Take Macrobid twice daily as prescribed. You can use Pyridium as prescribed if needed for painful urination. You can use Tylenol or ibuprofen as needed for fever or discomfort. Follow up with your primary physician within 2 weeks. Call to schedule appointment. Return to the emergency department if you develop increasing abdominal pain, fever with shaking chills, persistent vomiting, or otherwise worsening symptoms. Discharge Date/Time: 01/10/19 17:53
[2019-01-10] MEDS ORDERED: ONDANSETRON ODT 4 MG TABLET TL STA (17:49)
== END 2019-01-10 17:53 | disposition home or self-care (01) ==
LOC: ED 16:50
DX: N30.00 Acute cystitis without hematuria (principal); R01.1 Cardiac murmur, unspecified; I25.10 Atherosclerotic heart disease of native coronary artery without angina pectoris; Z95.1 Presence of aortocoronary bypass graft; Z95.5 Presence of coronary angioplasty implant and graft; I10 Essential (primary) hypertension; E11.42 Type 2 diabetes mellitus with diabetic polyneuropathy; Z79.4 Long term (current) use of insulin; Z96.652 Presence of left artificial knee joint; Z79.82 Long term (current) use of aspirin; Z66 Do not resuscitate
CPT/HCPCS: 81001; 87086; 87181; 99283; A9270; Q0162; 81003

== ENCOUNTER 2019-01-13 12:33 | Outpatient (CLI) | payer BC, MEDICARE | END 2019-01-13 12:34 | disposition critical access hospital (66) | LOC: EMS 12:33 | PROVIDERS: ATTEND Surgery | DX: R11.2 Nausea with vomiting, unspecified (principal); R10.9 Unspecified abdominal pain; R51 Headache; R42 Dizziness and giddiness; R50.9 Fever, unspecified | CPT/HCPCS: A0425; A0427 ==

== ENCOUNTER 2019-01-13 12:54 | Inpatient (IN) | payer BC, MEDICARE ==
--- NOTE | 2019-01-13 13:03 | ED Physician Documentation ---
PD HPI ABD PAIN - Stated complaint Stated Complaint: FLANK PX - Chief complaint Chief Complaint: Abd Pain - History obtained from History obtained from: Patient, EMS - History of Present Illness Timing - onset: How many days ago (She is having a little bit of low back pain and urinary discomfort and some incontinence several days ago was seen in the ER and prescribed with UTI which showed a significantly positive urinalysis. She was started on nitrofurantoin. She states she has not had improvement over the last few days and is now having a day and a half of fever, nausea, vomiting, increased flank pain on both sides but more on the right and general weakness.) Timing - duration: Days Timing - details: Gradual onset, Still present Quality: Cramping, Aching Location: Suprapubic Radiation: Lower back, Left flank, Right flank Associated symptoms: Fever, Nausea, Vomiting, Dysuria. No: Diarrhea, Constipation, Chest pain Similar symptoms before: Has not had sx before Recently seen: Emergency Dept (Several days ago for UTI symptoms and started on my nitrofurantoin) Review of Systems Constitutional: reports: Fever, Chills, Myalgias, Fatigue Nose: denies: Rhinorrhea / runny nose, Congestion Throat: denies: Sore throat Cardiac: denies: Chest pain / pressure, Palpitations Respiratory: denies: Dyspnea GI: reports: Abdominal Pain (lower abd), Nausea, Vomiting : reports: Dysuria, Frequency Skin: denies: Rash, Lesions Neurologic: reports: Generalized weakness. 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: Breast cancer, Other : Incontinence HEENT: Chronic vision loss, Chronic sinusitis Psych: Depression, Anxiety, Bipolar disorder, Panic attacks, Claustrophobia Musculoskeletal: Osteoarthritis, Chronic back pain Derm: None - Past Surgical History Past Surgical History: Yes General: Cholecystectomy, Appendectomy, Colonoscopy, Other Ortho: Carpal Tunnel surgery, Other /COORDINATE MEASURING MACHINE TECHNICIAN: Tubal ligation, Hysterectomy, Mastectomy, Breast implants Cardiovascular: CABG, Coronary stent, Cardiac catheterization, Angioplasty, Other HEENT: Cataracts, Tonsil/Adenoidectomy - Present Medications Home Medications: Ambulatory Orders Medication Instructions Recorded Confirmed traMADol [Ultram] 25 mg PO BID PRN 11/22/15 03/03/18 Alprazolam 0.5 mg PO DAILY PRN 10/30/16 03/03/18 Atorvastatin Calcium 80 mg PO QPM 10/30/16 03/03/18 Metformin HCl 1,000 mg PO BIDWM 10/30/16 03/03/18 Multivitamin [Multivitamins] 1 tab PO DAILY 10/30/16 03/03/18 Pantoprazole [Protonix] 40 mg PO QPM 10/30/16 03/03/18 Aspirin Chewable [St Ciro 162 mg PO QPM 04/08/17 03/03/18 Aspirin] Duloxetine HCl 60 mg PO QPM 04/09/17 03/03/18 Losartan [Cozaar] 25 mg PO DAILY tablet 04/09/17 03/03/18 Citalopram Hydrobromide 40 mg PO DAILY 12/09/17 03/03/18 [Citalopram HBr] Fenofibrate Nanocrystallized 145 mg PO QPM 12/09/17 03/03/18 [Fenofibrate] SITagliptin [Januvia] 100 mg PO DAILY 12/09/17 03/03/18 Cyanocobalamin (Vitamin B-12) 1,000 mcg PO DAILY 03/03/18 03/03/18 [Vitamin B-12] Clopidogrel Bisulfate [Clopidogrel] 75 mg PO DAILY #30 tablet 03/04/18 Metoprolol Succinate 25 mg PO BID #60 tab.er.24h 03/04/18 Levothyroxine Sodium [Synthroid] 75 mcg PO DAILY #30 tablet 03/05/18 Levothyroxine Sodium [Synthroid] 200 mcg PO DAILY #30 tablet 03/05/18 Nitrofurantoin Monohyd/M-Cryst 100 mg PO BID #10 capsule 01/10/19 [Macrobid 100 mg Capsule] Phenazopyridine HCl [Pyridium] 200 mg PO TID PRN #6 tablet 01/10/19 - Allergies Allergies/Adverse Reactions: Allergies Allergy/AdvReac Type Severity Reaction Status Date / Time azithromycin Allergy Edema Verified 01/13/19 12:59 [From ZithrBergey'sx Z-Robin] Penicillins Allergy Anaphylaxis Verified 01/13/19 12:59 vancomycin Allergy Edema Verified 01/13/19 12:59 erythromycin base AdvReac Emesis Verified 01/13/19 12:59 sulfacetamide sodium * AdvReac Unknown Verified 01/13/19 12:59 [From Sulfamide] - Social History Does the pt smoke?: No Smoking Status: Never smoker Does the pt drink ETOH?: Yes Does the pt have substance abuse?: No - Immunizations Immunizations are current?: Yes - POLST Patient has POLST: No POLST Status: DNR PD ED PE NORMAL - Vitals Vital signs reviewed: Yes - General General: Alert and oriented X 3, No acute distress, Well developed/nourished - HEENT HEENT: Pharynx benign - Neck Neck: Supple, no meningeal sign, No adenopathy - Cardiac Cardiac: RRR, No murmur - Respiratory Respiratory: Clear bilaterally - Abdomen Abdomen: Normal bowel sounds, Soft, Non distended, No organomegaly, Other (She is tender in the suprapubic area. She has Tums and tender on the right flank area to percussion.) - Female Female : Deferred - Rectal Rectal: Other (Soft brown stool in the vault which is guaiac negative.) - Back Back: Other (some right CVA tenderness) - Derm Derm: Normal color, Warm and dry - Extremities Extremities: No tenderness to palpate, Normal ROM s pain, No edema - Neuro Neuro: Alert and oriented X 3, No motor deficit, Normal speech Results - Vitals Vitals: Vital Signs - 24 hr 01/13/19 01/13/19 01/13/19 12:55 14:58 15:03 Temperature 38.5 C H 37.8 C H Heart Rate 86 88 88 Respiratory 18 14 18 Rate Blood Pressure 129/80 128/80 114/60 O2 Saturation 92 92 93 Oxygen O2 Source Room air - Labs Labs: Laboratory Tests 01/13/19 01/13/19 01/13/19 13:45 13:45 13:45 WBC 14.0 H RBC 3.34 L 3.16 L Hgb 8.6 L Hct 27.2 L MCV 81.4 MCH 25.7 L MCHC 31.6 L RDW 14.9 Plt Count 350 MPV 9.6 Reticulocyte % (Auto) 1.10 Neut # (Auto) 11.9 H Lymph # (Auto) 0.8 L [place] # (Auto) 0.9 Eos # (Auto) 0.1 Baso # (Auto) 0.1 Absolute Nucleated RBC 0.04 Nucleated RBC % 0.3 Manual Slide Review Indicated RBC Morph Micro Appear 2+ ANISOCYTOSIS Absolute Retic 0.035 Sodium 128 L Potassium 4.5 Chloride 92 L Carbon Dioxide 22 Anion Gap 14.0 H BUN 34 H Creatinine 1.8 H Estimated GFR (MDRD) 29 L Glucose 110 H Glycated Hemoglobin Estim Average Glucose Lactic Acid Calcium 9.3 Magnesium 1.3 L Iron TIBC % Saturation Transferrin Ferritin Total Bilirubin 1.0 AST 59 H ALT 47 Alkaline Phosphatase 154 H Total Protein 7.2 Albumin 2.8 L Globulin 4.4 H Albumin/Globulin Ratio 0.6 L Lipase 15 L Vitamin B12 Urine Color Urine Clarity Urine pH Ur Specific [place] Urine Protein Urine Glucose (UA) Urine Ketones Urine Occult Blood Urine Nitrite Urine Bilirubin Urine Urobilinogen Ur Leukocyte Esterase Urine RBC Urine WBC Ur Squamous Epith Cells Amorphous Sediment Urine Bacteria Ur Microscopic Review Urine Culture Comments 01/13/19 01/13/19 01/13/19 13:45 13:45 13:45 WBC RBC Hgb Hct MCV MCH MCHC RDW Plt Count MPV Reticulocyte % (Auto) Neut # (Auto) Lymph # (Auto) [place] # (Auto) Eos # (Auto) Baso # (Auto) Absolute Nucleated RBC Nucleated RBC % Manual Slide Review RBC Morph Micro Appear Absolute Retic Sodium Potassium Chloride Carbon Dioxide Anion Gap BUN Creatinine Estimated GFR (MDRD) Glucose Glycated Hemoglobin 7.7 H Estim Average Glucose 174 H Lactic Acid Calcium Magnesium Iron 10 L TIBC 332 % Saturation 3 L Transferrin 237 Ferritin 116.9 Total Bilirubin AST ALT Alkaline Phosphatase Total Protein Albumin Globulin Albumin/Globulin Ratio Lipase Vitamin B12 1043 H Urine Color Urine Clarity Urine pH Ur Specific [place] Urine Protein Urine Glucose (UA) Urine Ketones Urine Occult Blood Urine Nitrite Urine Bilirubin Urine Urobilinogen Ur Leukocyte Esterase Urine RBC Urine WBC Ur Squamous Epith Cells Amorphous Sediment Urine Bacteria Ur Microscopic Review Urine Culture Comments 01/13/19 01/13/19 14:20 16:35 WBC RBC Hgb Hct MCV MCH MCHC RDW Plt Count MPV Reticulocyte % (Auto) Neut # (Auto) Lymph # (Auto) [place] # (Auto) Eos # (Auto) Baso # (Auto) Absolute Nucleated RBC Nucleated RBC % Manual Slide Review RBC Morph Micro Appear Absolute Retic Sodium Potassium Chloride Carbon Dioxide Anion Gap BUN Creatinine Estimated GFR (MDRD) Glucose Glycated Hemoglobin Estim Average Glucose Lactic Acid 1.8 Calcium Magnesium Iron TIBC % Saturation Transferrin Ferritin Total Bilirubin AST ALT Alkaline Phosphatase Total Protein Albumin Globulin Albumin/Globulin Ratio Lipase Vitamin B12 Urine Color DARK YELLOW Urine Clarity HAZY Urine pH 6.0 Ur Specific [place] <=1.005 Urine Protein 100 H Urine Glucose (UA) NEGATIVE Urine Ketones NEGATIVE Urine Occult Blood SMALL H Urine Nitrite POSITIVE H Urine Bilirubin NEGATIVE Urine Urobilinogen 1 (NORMAL) Ur Leukocyte Esterase TRACE H Urine RBC 0-5 Urine WBC 6-10 H Ur Squamous Epith Cells RARE Squamous Amorphous Sediment Few Urine Bacteria Few Ur Microscopic Review INDICATED Urine Culture Comments INDICATED PD MEDICAL DECISION MAKING - ED course Complexity details: re-evaluated patient, considered differential, d/w patient Departure - Departure Disposition: 66 [facility] DC/Xfer Clinical Impression: Acute pyelonephritis Nausea and vomiting Qualifiers: Vomiting type: unspecified Vomiting Intractability: non-intractable Qualified Code(s): R11.2 - Nausea with vomiting, unspecified Anemia Qualifiers: Anemia type: iron deficiency Iron deficiency anemia type: other iron deficiency Qualified Code(s): D50.8 - Other iron deficiency anemias Fever Qualifiers: Fever type: unspecified Qualified Code(s): R50.9 - Fever, unspecified Condition: Stable Record reviewed to determine appropriate education?: Yes Discharge Date/Time: 01/13/19 18:05
[2019-01-13] MEDS ORDERED: ONDANSETRON 4 MG/2 ML VIAL IVP STA ×2 (13:29→15:12)
[2019-01-13] MEDS ORDERED: cefTRIAXone 1 GM VIAL IVP STA (13:29)
[2019-01-13] MEDS ORDERED: MORPHINE 2 MG/ML CARPUJECT IVP STA (13:29)
[2019-01-13] MEDS ORDERED: KETOROLAC 15 MG/ML VIAL IVP STA (13:29)
[2019-01-13] MEDS ORDERED: SODIUM CHLORIDE 0.9% 1,000 ML IV ONE ×2 (13:29→15:12)
--- NOTE | 2019-01-13 13:55 | XRAY Report ---
Reason: chest pain Procedure Date: 01/13/2019 Accession Number: [id number] / [id number] Procedure: XR - Chest 1 View X-Ray CPT Code: 70305 FULL RESULT: EXAM: CHEST RADIOGRAPHY EXAM DATE: 01/13/2019 01:43 PM. CLINICAL HISTORY: Chest pain. COMPARISON: CHEST 2 VIEW 07/22/2017 1:34 PM. TECHNIQUE: 1 view. FINDINGS: Lungs/Pleura: Pulmonary vascularity is increased. No focal infiltrate. No effusion. Chronic elevated right hemidiaphragm. Decreased lung volumes. Mediastinum: Post sternotomy. Mild cardiomegaly ectatic aorta. Other: None. IMPRESSION: 1. Cardiomegaly, pulmonary venous congestion. RADIA
[2019-01-13 13:58] LABS: BASOPHILS # (AUTO) 0.1 10^3/uL (0.0-0.1); BASOPHILS % (AUTO) 0.4 %; EOSINOPHILS # (AUTO) 0.1 10^3/uL (0.0-0.7); EOSINOPHILS % (AUTO) 0.4 %; HGB - HEMOGLOBIN 8.6 g/dL (12.0-16.0); LYMPHOCYTES # (AUTO) 0.8 10^3/uL (1.5-3.5); LYMPHOCYTES % (AUTO) 5.9 %; MEAN CORPUSCULAR HEMOGLOBIN 25.7 pg (27.0-31.0); MEAN CORPUSCULAR HGB CONC 31.6 g/dL (32.0-36.0); MEAN CORPUSCULAR VOLUME 81.4 fL (81.0-99.0); MEAN PLATELET VOLUME 9.6 fL (7.9-10.8); MONOCYTES # (AUTO) 0.9 10^3/uL (0.0-1.0); MONOCYTES % (AUTO) 6.4 %; NEUTROPHILS # (AUTO) 11.9 10^3/uL (1.5-6.6); NEUTROPHILS % (AUTO) 84.8 %; PLT - PLATELET COUNT 350 10^3/uL (130-450); RED BLOOD COUNT 3.34 10^6/uL (4.20-5.40); RED CELL DISTRIBUTION WIDTH 14.9 % (12.0-15.0)
[2019-01-13 14:12] LABS: ALBUMIN 2.8 g/dL (3.2-5.5); ALBUMIN/GLOBULIN RATIO 0.6 (1.0-2.2); CALCIUM 9.3 mg/dL (8.5-10.3); CREATININE 1.8 mg/dL (0.4-1.0); MAGNESIUM 1.3 mg/dL (1.7-2.8); TOTAL PROTEIN 7.2 g/dL (6.7-8.2)
[2019-01-13 14:19] LABS: RBC MORPHOLOGY (MULTIPLE) 2+ ANISOCYTOSIS (NORMAL)
[2019-01-13] MEDS ORDERED: MAGNESIUM SULFATE 2 GRAM 2 GM/50 ML BAG IV ONE (14:22)
[2019-01-13 15:36] LABS: ABSOLUTE RETICS # AUTO 0.035 10^6/uL (0.020-0.110); RED BLOOD COUNT 3.16 10^6/uL (4.20-5.40)
[2019-01-13 15:43] LABS: % IRON SATURATION 3 % (20-50); IRON 10 ug/dL (28-170); TOTAL IRON BINDING CAPACITY 332 ug/dL (250-450); TRANSFERRIN 237 mg/dL (192-382)
[2019-01-13 15:44] LABS: FERRITIN 116.9 ng/mL (11.0-306.8)
--- NOTE | 2019-01-13 16:08 | CT Report ---
Reason: back pain, fever, UTI Procedure Date: 01/13/2019 Accession Number: [id number] / [id number] Procedure: CT - Abdomen/Pelvis WO CPT Code: FULL RESULT: EXAM: CT ABDOMEN AND PELVIS (CT KUB) EXAM DATE: 01/13/2019 03:54 PM. CLINICAL HISTORY: Back pain. Fever. UTI. COMPARISONS: None. TECHNIQUE: Routine axial helical CT imaging was performed through the abdomen and pelvis without IV contrast. Reconstructions: Coronal and sagittal. In accordance with CT protocol optimization, one or more of the following dose reduction techniques were utilized for this exam: automated exposure control, adjustment of mA and/or KV based on patient size, or use of iterative reconstructive technique. FINDINGS: Lung Bases: Unremarkable. Right Kidney/Ureter: No stones, hydronephrosis, or hydroureter. No perinephric fat stranding. Left Kidney/Ureter: No stones, hydronephrosis, or hydroureter. No perinephric fat stranding. Other Solid Organs: Noncontrast images of the solid organs are grossly unremarkable. Gallbladder/Bile Ducts: Cholecystectomy. No dilated ducts. Peritoneal Cavity: No free fluid, free air or tavares adenopathy. Mild diverticulosis, otherwise the bowel is grossly unremarkable. Pelvic Organs: Hysterectomy. Unremarkable bladder. Vasculature: Unremarkable. Other: Small fat-containing umbilical hernia. The ventral hernia repair above the umbilicus.. IMPRESSION: 1. No kidney or ureteral stones or obstruction. 2. Mild diverticulosis without diverticulitis. 3. Cholecystectomy and hysterectomy noted. RADIA
[2019-01-13 16:43] LABS: BILIRUBIN,URINE NEGATIVE (NEGATIVE); GLUCOSE, URINE (UA) NEGATIVE (NEGATIVE); KETONES,URINE (UA) NEGATIVE (NEGATIVE); LEUKOCYTE ESTERASE, URINE TRACE (NEGATIVE); NITRITE,URINE POSITIVE (NEGATIVE); OCCULT BLOOD,URINE SMALL (NEGATIVE); PROTEIN,URINE 100 mg/dL (NEGATIVE); UROBILINOGEN,URINE 1 (NORMAL) E.U./dL (NORMAL)
[2019-01-13 16:45] LABS: CLARITY,URINE HAZY (CLEAR)
[2019-01-13 16:48] LABS: AMORPHOUS SEDIMENT,UR Few /LPF; BACTERIA,URINE Few /HPF (None Seen); RBC,URINE 0-5 /HPF (0-5); SQUAMOUS EPITHELIAL CELL,UR RARE Squamous (<= Few)
[2019-01-13] MEDS ORDERED: PROCHLORPERAZINE 10 MG/2 ML VIAL IVP PRN (17:08)
[2019-01-13] MEDS ORDERED: ONDANSETRON ODT 4 MG TABLET TL PRN (17:08)
[2019-01-13] MEDS ORDERED: ONDANSETRON 4 MG/2 ML VIAL IVP PRN (17:08)
--- NOTE | 2019-01-13 17:19 | HISTORY & PHYSICAL EXAMINATION ---
Chief Complaint - Chief Complaint Chief Complaint: failed outpt therapy for pyelo History of Present Illness - Admitted From Admitted From:: HOme/ER - History Obtained From Records Reviewed: Brayan History obtained from: Dr. Cowart, [facility], patient Exam Limitations: none - History of Present Illness HPI Comment/Other: She is a morbidly obese white female who has multiple medical problems including coronary artery disease, cerebrovascular disease, and uncontrolled diabetes. She was seen in the emergency room on January 10. Found to have a UTI after complaining of low back ache and urinary incontinence with dysuria. Sent home on nitrofurantoin. She has been unable to tolerate the medication because of nausea and vomiting. She is continued to have aches and fevers and chills. Her abdominal pain that was present with a kidney stone on the is getting worse. And she returned to our emergency room. Temperature was 38.5. Blood pressure, pulse, was normal. Mildly hypoxemic at 92% on room air. She is mildly hyponatremic at 128. She has acute kidney insufficiency and that her creatinine is usually 0.6-0.8. She is 1.8. White cell count is elevated at 14,000. She is now admitted for pyelonephritis that is failed outpatient therapy. Her urinalysis and culture showed her to be growing E. coli. She is allergic to penicillin and Bactrim. The E. coli is sensitive to Levaquin, and cephalosporins. History - Past Medical History Cardiovascular: reports: Hypertension, High cholesterol, Coronary artery disease (Unstable angina resented and stenting in 2006. She had another episode of angina in 2016 with another stent. It was unsuccessful and she underwent four- way bypass in 2016. Echocardiogram done for a TIA in February 2018 showed to have mild concentric left ventricular hypertrophy with normal systolic function. Ejection fraction 55%. Left atrium mildly dilated. Normal right ventricle size and function. Mildly dilated a sending aorta at 3.9 cm.), [place], Other Respiratory: reports: Sleep apnea, CPAP use, Other Neuro: reports: TIA, Headaches, Migraines, Peripheral neuropathy, Seizure disorder Endocrine/Autoimmune: reports: Type 2 diabetes (Uncontrolled. 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 PROCESSING: reports: Breast cancer, Other : reports: Incontinence HEENT: reports: Chronic vision loss, Chronic sinusitis Psych: reports: Depression, Anxiety, Bipolar disorder, Panic attacks, Claustrophobia Musculoskeletal: reports: Osteoarthritis, Chronic back pain Derm: reports: None MRSA Hx?: No - Past Surgical History General: reports: Cholecystectomy, Appendectomy, Colonoscopy, Other Ortho: reports: Carpal Tunnel surgery, Other /METHODS ANALYST DATA PROCESSING: reports: Tubal ligation, Hysterectomy, Mastectomy, Breast implants Cardiovascular: reports: CABG, Coronary stent, Cardiac catheterization, Angioplasty, Other HEENT: reports: Cataracts, Tonsil/Adenoidectomy - Family & Social History Family History: Mother: , CAD, Hyperlipidemia, Hypertension, [place], Father: Alive and Well, CAD, Hypertension, Sister: Alive and Well, Hypertension, Brother: Alive and Well, CAD, Other family: Cancer Family History Comment/Other: Dad is 86 years old and came to live with her 3 years ago. He is getting a little forgetful. He has coronary artery disease with bypass, COPD, hypertension,. Mom at age 68 with congestive heart failure. 3 brothers and one sister. Among them they have diabetes, CAD, hypertension, apnea. Of her 3 children, 2 have apnea Living arrangement: At home Living Situation: With spouse/s.o. Social History Notes: The patient is to [place] (second ) for the past 40 years, has 3 grown children and lives independently with her and elderly father. She has been retired since 2004, and worked in the [employer] office, [employer], and [employer]. She had previously lived in [place] and moved to the [place] in 2012 to be closer to her family. She enjoys bible reading, and stays busy around the house. She denies the current use of alcohol, tobacco or illicit drugs. She admits to a smoking history from age [age]. 3 ppd. She wish es to be a DNR. - Substance History Use: Uses substance without health or social issues: Tobacco (Quit 1993, 30 py hx), Alcohol (Very rarely will have 1 beer) Abuse: Recurrent use of substance despite neg consequences: NONE Dependence: Experiences withdrawal or developed tolerances: NONE - POLST Patient has POLST: No POLST Status: DNR Meds/Allgy - Home Medications Home Medications: Ambulatory Orders Medication Instructions Recorded Confirmed traMADol [Ultram] 25 mg PO BID PRN 11/22/15 03/03/18 Alprazolam 0.5 mg PO DAILY PRN 10/30/16 03/03/18 Atorvastatin Calcium 80 mg PO QPM 10/30/16 03/03/18 Metformin HCl 1,000 mg PO BIDWM 10/30/16 03/03/18 Multivitamin [Multivitamins] 1 tab PO DAILY 10/30/16 03/03/18 Pantoprazole [Protonix] 40 mg PO QPM 10/30/16 03/03/18 Aspirin Chewable [St Ciro 162 mg PO QPM 04/08/17 03/03/18 Aspirin] Duloxetine HCl 60 mg PO QPM 04/09/17 03/03/18 Losartan [Cozaar] 25 mg PO DAILY tablet 04/09/17 03/03/18 Citalopram Hydrobromide 40 mg PO DAILY 12/09/17 03/03/18 [Citalopram HBr] Fenofibrate Nanocrystallized 145 mg PO QPM 12/09/17 03/03/18 [Fenofibrate] SITagliptin [Januvia] 100 mg PO DAILY 12/09/17 03/03/18 Cyanocobalamin (Vitamin B-12) 1,000 mcg PO DAILY 03/03/18 03/03/18 [Vitamin B-12] Clopidogrel Bisulfate [Clopidogrel] 75 mg PO DAILY #30 tablet 03/04/18 Metoprolol Succinate 25 mg PO BID #60 tab.er.24h 03/04/18 Levothyroxine Sodium [Synthroid] 75 mcg PO DAILY #30 tablet 03/05/18 Levothyroxine Sodium [Synthroid] 200 mcg PO DAILY #30 tablet 03/05/18 Nitrofurantoin Monohyd/M-Cryst 100 mg PO BID #10 capsule 01/10/19 [Macrobid 100 mg Capsule] Phenazopyridine HCl [Pyridium] 200 mg PO TID PRN #6 tablet 01/10/19 - Allergies Allergies/Adverse Reactions: Allergies Allergy/AdvReac Type Severity Reaction Status Date / Time azithromycin Allergy Edema Verified 01/13/19 12:59 [From Zithromax Z-Robin] Penicillins Allergy Anaphylaxis Verified 01/13/19 12:59 vancomycin Allergy Edema Verified 01/13/19 12:59 erythromycin base AdvReac Emesis Verified 01/13/19 12:59 sulfacetamide sodium * AdvReac Unknown Verified 01/13/19 12:59 [From Sulfamide] Review of Systems - Constitutional Constitutional: reports: Fatigue, Fever, Chills, Malaise - Eyes Eyes: denies: Pain, Irritation, Amaurosis, Blurred vision - Ears, Nose & Throat Ears, Nose & Throat: denies: Ear pain, Hearing loss, Hearing aids, Tinnitus, Sore throat - Cardiovascular Cariovascular: reports: Palpitations, Chest pain, Exertional dyspnea, Decr. exercise tolerance. denies: Irregular heart rate - Respiratory Respiratory: reports: Snoring, SOB with exertion, Apnea. denies: Cough, Sputum production, Wheezing, Orthopnea, SOB at rest, Stridor, Pleuritic pain - Gastrointestinal Gastrointestinal: reports: Abdominal pain, Nausea, Vomiting. denies: Abdominal distention, Constipation, Diarrhea, Change in bowel habits, Rectal bleeding, Black stools, Bloody stools - Genitourinary Genitourinary: reports: Dysuria, Frequency, Urgency, Incontinence, Flank pain, Nocturia. denies: Hematuria, Urethral discharge - Musculoskeletal Musculoskeletal: reports: Muscle pain, Back pain, Joint pain (just got left knee replaced 2 weeks ago) - Integumentary Integumentary: denies: Rash, Pruritis, Lesions, Dryness - Neurological Neurological: reports: Headache, Seizures. denies: General weakness, Focal weakness, Dizziness, Incoordination - Psychiatric Psychiatric: reports: Depression, Anxiety. denies: Suicidal, Delusions, Hallucinations - Endocrine Endocrine: denies: Polyuria, Polydypsia - Hematologic/Lymphatic Hematologic/Lymphatic: reports: Anemia (from surgery). denies: Bruising, Petechiae, Blood clots Prior Level of Functionality: Her knee pain has been slowing her down. The knee replacement was 2 weeks ago. But prior to that she drives her car, pays the bills, cleans her house, and is independent with her activities of daily living. She occasionally uses a cane or walker because of the knee replacement. Exam - Vital Signs Reviewed Vital Signs: Yes Vital Signs: Vital Signs x48h Temp Pulse Resp BP Pulse Ox 01/13/19 15:03 88 18 114/60 93 01/13/19 14:58 37.8 C H 88 14 128/80 92 01/13/19 12:55 38.5 C H 86 18 129/80 92 - Physical Exam General Appearance: positive: No acute distress, Lethargic (Glucose is 47), Other (5 foot 5 inch white female who weighs 108.86 kg. Cheeks are red and flushed, left eyelid droops and she said that is chronic.) Eyes Bilateral: positive: PERRL ENT: positive: Dry mucous membranes (Her lips are sticking to her gums and teeth) Neck: positive: No JVD. negative: Carotid bruit Respiratory: positive: Chest non-tender, Other (Diminished breath sounds at the bases without any increased respiratory effort). negative: Wheezes, Rales, Rhonchi Cardiovascular: positive: Regular rate & rhythm, Systolic murmur. negative: Gallop/S4, Friction rub Peripheral Pulses: positive: 1+ Abdomen: positive: Non-tender, No organomegaly, Nml bowel sounds, No distention, Other (Morbidly obese pannus, signs of resolving Leidy underneath the pannus fold) Skin: positive: Warm, Diaphoresis, Pallor Extremities: positive: No pedal edema. negative: Full ROM (The right knee has some crepitance. With full range of motion. Left knee is a vertical incision over the kneecap it starts just above the kneecap and goes down below the knee cap. Incision is closed, healed, no drainage. The distal pole has dried blood. There is no redness, heat, edema.), Paresh's sign/cords Neurologic/Psychiatric: positive: Oriented x3, CN's nml (2-12), Motor nml, Slurred/abnml speech (Hypoglycemic) Conclusion/Plan - Problem List (1) Acute pyelonephritis Conclusion/Plan: She presented as urgency and frequency earlier in the week. Found to have UTI. Has not tolerated her medication and has been unable to keep it down with nausea and vomiting. Now with flank pain. Has continued abdominal pain. Continues to have fever, elevated white cell count, and CT KUB confirms that she does not have obstruction. Plan: Inpatient admission since she has failed outpatient therapy and has continued fever and infection. Adjust duration therapy on the basis of blood cultures of they become positive. Rocephin 2 g daily Analgesics to include Tylenol for mild pain, oxycodone for moderate pain, and morphine for severe pain. Continue to monitor daily CBC and BMP. (2) XIOMARA (acute kidney injury) Conclusion/Plan: Since she is not obstructed, I will attribute this to probable poor p.o. intake. She has been nauseated and unable to keep her food down or antibiotics down. Plan: IV fluids with normal saline Monitor kidney function daily Avoid nephrotoxic agents (3) Uncontrolled type 2 diabetes mellitus Conclusion/Plan: Curretnly with hypoglycemia on transfer to [facility]. Metformin will be stopped. Lantus 5 units at night Sliding scale short acting insulin low scale to cover before meals Check A1c Qualifiers: Glycemic state: with hyperglycemia Qualified Code(s): E11.65 - Type 2 diabetes mellitus with hyperglycemia (4) Hypertension Conclusion/Plan: Resume Cozaar and metoprolol. Qualifiers: Hypertension type: essential hypertension Qualified Code(s): I10 - Essential (primary) hypertension (5) Depression with anxiety Conclusion/Plan: Continue her duloxetine and alprazolam (6) Anemia Conclusion/Plan: In reviewing her CBCs, this woman is usually microcytic but not anemic. Today she is anemic and normocytic. The emergency room physician did iron studies and her iron is 10 and very low, percent saturation is 3%. TIBC 332. TSH is less than 0.08. And vitamin B12 is 1043. Since she just had a knee replacement 2 weeks ago, I suspect it is acute blood loss anemia from her surgery. Plan: Check stool for fecal occult reaction Review chart in outpatient setting to see if she has had colonoscopy She does have some reflux symptoms but no history of ulcer disease. iron po. Qualifiers: Anemia type: iron deficiency Iron deficiency anemia type: other iron deficiency Qualified Code(s): D50.8 - Other iron deficiency anemias (7) Total knee replacement status Conclusion/Plan: PT to be ordered. DVT prophylaxis Qualifiers: Laterality: left Qualified Code(s): Z96.652 - Presence of left artificial knee joint - Lab Results Lab results reviewed: Yes Fish Bones: 01/13/19 13:45 01/13/19 13:45 - Diagnostic Imaging Results Diagnostic Imaging Results: positive: Final report reviewed Diagnostic Imaging Results Comments: CHEST RADIOGRAPHY EXAM DATE: 01/13/2019 01:43 PM. CLINICAL HISTORY: Chest pain. COMPARISON: CHEST 2 VIEW 07/22/2017 1:34 PM. TECHNIQUE: 1 view. FINDINGS: Lungs/Pleura: Pulmonary vascularity is increased. No focal infiltrate. No effusion. Chronic elevated right hemidiaphragm. Decreased lung volumes. Mediastinum: Post sternotomy. Mild cardiomegaly ectatic aorta. Other: None. IMPRESSION: 1. Cardiomegaly, pulmonary venous congestion. CT ABDOMEN AND PELVIS (CT KUB) EXAM DATE: 01/13/2019 03:54 PM. CLINICAL HISTORY: Back pain. Fever. UTI. COMPARISONS: None. TECHNIQUE: Routine axial helical CT imaging was performed through the abdomen and pelvis without IV contrast. Reconstructions: Coronal and sagittal. In accordance with CT protocol optimization, one or more of the following dose reduction techniques were utilized for this exam: automated exposure control, adjustment of mA and/or KV based on patient size, or use of iterative reconstructive technique. FINDINGS: Lung Bases: Unremarkable. Right Kidney/Ureter: No stones, hydronephrosis, or hydroureter. No perinephric fat stranding. Left Kidney/Ureter: No stones, hydronephrosis, or hydroureter. No perinephric fat stranding. Other Solid Organs: Noncontrast images of the solid organs are grossly unremarkable. Gallbladder/Bile Ducts: Cholecystectomy. No dilated ducts. Peritoneal Cavity: No free fluid, free air or tavares adenopathy. Mild diverticulosis, otherwise the bowel is grossly unremarkable. Pelvic Organs: Hysterectomy. Unremarkable bladder. Vasculature: Unremarkable. Other: Small fat-containing umbilical hernia. The ventral hernia repair above the umbilicus.. IMPRESSION: 1. No kidney or ureteral stones or obstruction. 2. Mild diverticulosis without diverticulitis. 3. Cholecystectomy and hysterectomy noted. Core Measures - Anticipated LOS I expect patient to be DC'd or transferred within 96 hours.: Yes - DVT/VTE - Prophylaxis VTE/DVT Device ordered at admit?: Yes
[2019-01-13] MEDS ORDERED: SODIUM CHLORIDE 0.9% 1,000 ML IV SCH (18:00)
[2019-01-13] MEDS ORDERED: DEXTROSE 5%-0.9% NACL 1,000 ML IV ONE (18:23)
[2019-01-13] MEDS ORDERED: ALPRAZolam 0.25 MG TABLET PO PRN (18:34)
[2019-01-13] MEDS: MORPHINE 2 MG/ML CARPUJECT IVP PRN (19:17)
[2019-01-13] MEDS: SODIUM CHLORIDE FLUSH 0.9% 10 ML SYRINGE IVP PRN (19:17)
[2019-01-13 20:22] LABS: HB2 TOTAL 8.7 g/dL; HEMOGLOBIN A1C 0.53 g/dL; HEMOGLOBIN A1C % 7.7 % (4.6-6.2)
[2019-01-13] MEDS ORDERED: INSULIN GLARGINE 300 UNIT/3 ML PEN SUBQ SCH (21:00)
[2019-01-13] MEDS: oxyCODONE 5 MG TABLET PO PRN (21:01)
[2019-01-13] MEDS: INSULIN ASPART 300 UNIT/3 ML PEN SUBQ SCH (21:27)
[2019-01-14] MEDS: ACETAMINOPHEN 325 MG TABLET PO PRN ×2 (03:48→16:11)
[2019-01-14] MEDS: SODIUM CHLORIDE FLUSH 0.9% 10 ML SYRINGE IVP PRN ×2 (05:10→18:55)
[2019-01-14] MEDS: SODIUM CHLORIDE FLUSH 0.9% 10 ML SYRINGE IVP SCH ×3 (05:10→17:44)
[2019-01-14] MEDS: PANTOPRAZOLE 40 MG TABLET PO SCH (06:51)
[2019-01-14] MEDS: DOCUSATE SODIUM 250 MG CAPSULE PO SCH (08:59)
[2019-01-14] MEDS ORDERED: METOPROLOL SUCCINATE 25 MG TABLET PO SCH (09:00)
[2019-01-14] MEDS: LOSARTAN 50 MG TABLET PO SCH (09:00)
[2019-01-14] MEDS ORDERED: POLYETHYLENE GLYCOL 3350 17 GM PACKET PO SCH (09:00)
[2019-01-14] MEDS ORDERED: DULoxetine 30 MG CAPSULE PO SCH (09:00)
[2019-01-14] MEDS: SENNA 8.6 MG TABLET PO SCH (09:00)
[2019-01-14] MEDS: ENOXAPARIN 40 MG/0.4 ML SYRINGE SUBQ SCH (09:01)
[2019-01-14] MEDS: POLYETHYLENE GLYCOL 3350 17 GM PACKET PO SCH (09:01)
[2019-01-14] MEDS: cefTRIAXone 2 GM in SODIUM CHLORIDE 0.9% MINIBAG 100 ML IV SCH (09:01)
[2019-01-14] MEDS: INSULIN ASPART 300 UNIT/3 ML PEN SUBQ SCH ×4 (09:02→21:21)
[2019-01-14] MEDS: MORPHINE 2 MG/ML CARPUJECT IVP PRN (11:24)
[2019-01-14 12:20] LABS: BASOPHILS % (AUTO) 0.2 %; EOSINOPHILS % (AUTO) 1.4 %; HGB - HEMOGLOBIN 8.6 g/dL (12.0-16.0); LYMPHOCYTES % (AUTO) 5.5 %; MEAN CORPUSCULAR HEMOGLOBIN 24.7 pg (27.0-31.0); MEAN CORPUSCULAR HGB CONC 30.4 g/dL (32.0-36.0); MEAN CORPUSCULAR VOLUME 81.3 fL (81.0-99.0); MEAN PLATELET VOLUME 9.9 fL (7.9-10.8); MONOCYTES % (AUTO) 7.4 %; NEUTROPHILS % (AUTO) 78.2 %; PLT - PLATELET COUNT 331 10^3/uL (130-450); RED BLOOD COUNT 3.48 10^6/uL (4.20-5.40); RED CELL DISTRIBUTION WIDTH 15.3 % (12.0-15.0); WHITE BLOOD COUNT 13.4 x10^3/uL (4.8-10.8)
[2019-01-14 12:34] LABS: CALCIUM 8.5 mg/dL (8.5-10.3); CREATININE 2.1 mg/dL (0.4-1.0)
[2019-01-14 12:45] LABS: ABNORMAL LYMPHS % (MANUAL) 0 %
[2019-01-14 12:50] LABS: BAND NEUTROPHILS % (MANUAL) 9 %; EOSINOPHILS # (MANUAL) 0.3 10^3/uL (0-0.7); LYMPHOCYTES # (MANUAL) 0.5 10^3/uL (1.5-3.5); LYMPHOCYTES % (MANUAL) 4 %; MONOCYTES # (MANUAL) 0.9 10^3/uL (0.0-1.0); MYELOCYTES % (MANUAL) 4 %
[2019-01-14 12:51] LABS: DIFFERENTIAL COMMENT MANUAL DIFFERENTIAL
[2019-01-14] MEDS ORDERED: NON FORMULARY MED (Alprazolam [Alprazolam] 0.5 MG) PO PRN (13:46)
[2019-01-14] MEDS ORDERED: MAGNESIUM HYDROXIDE 2,400 MG/30 ML UDC PO ONE (16:52)
[2019-01-14] MEDS ORDERED: BISACODYL 10 MG SUPP PR ONE (16:52)
--- NOTE | 2019-01-14 16:59 | PROVIDER PROGRESS NOTE ---
Assessment/Plan - Problem List (1) Gram-negative bacteremia Assessment/Plan: The blood cultures turned pos for GNRod. Continue empiric iv Rocephin, which the culture from ER last-week which grew E coli, was sensitive to. With a fever spike this afternoon, will repeat blood cultures. (2) UTI (urinary tract infection) Assessment/Plan: Her treatment with Nitrofurantoin, was not tolerated and did not result in symptom improvement last week, therefore she came to the ER. The urine Cx from last week grew E coli, therefore her antibiotic was changed and she is feeling better on iv Rocephin. The CT did not show perinephric stranding of pyelonephritis or any stones, therefore will plan 2-3 days of iv antibiotics then change to oral antibiotics for a total 7-10 day course. (3) XIOMARA (acute kidney injury) Assessment/Plan: Worsening creat from 1.8 yesterday to 2.1 today. Since she is not obstructed, but had poor p.o. intake due to nausea, XIOMARA iss likely due to dehydration. Will restart and continue iv fluids, as she has a fever yet today. Follow BMP daily. Continue to hold Metformin. (4) DM type 2 (diabetes mellitus, type 2) Assessment/Plan: Her A1c was 7.7 indicating fair-poor control, possibly partly from this infection. Continue Glipizide but hold Metformin, due to elevated creat. Continue ss Insulin coverage plus Lantus Insulin at hs and a carb-controlled diet. (5) Hyponatremia Assessment/Plan: Possibly low from elevated glucose or poor po intake from N/V. Continue gentle IV hydration with NS. Follow BMP daily. (6) Hypomagnesemia Assessment/Plan: Similar to the low serum sodium. Correct and follow Mg daily. (7) Hypothyroidism Assessment/Plan: Continue her michelle thyroid replacement dose. (8) Hypertension Qualifiers: Hypertension type: essential hypertension Qualified Code(s): I10 - Essential (primary) hypertension Assessment/Plan: Continue her home BP meds. (9) Depression with anxiety Assessment/Plan: Continue her home dose of Duloxetine. (10) Hx of coronary artery disease Assessment/Plan: No cardiopulmonary complaints. Continue Lipitor and Tricor as at home. - Current Meds Current Meds: Current Medications Generic Name Dose Route Start Last Admin Trade Name Freq PRN Reason Stop Dose Admin Acetaminophen 650 mg 01/13/19 17:08 01/14/19 16:11 Tylenol PO 650 mg Q4HR PRN Administration Pain 1 to 4 Docusate Sodium 250 - 500 mg 01/14/19 09:00 01/14/19 08:59 Colace 250mg Capsule PO 250 mg DAILY JAZZ Administration Enoxaparin Sodium 40 mg 01/14/19 09:00 01/14/19 09:01 Lovenox SUBQ Not Given DAILY [facility] Ceftriaxone Sodium 2 gm/ 100 mls @ 200 mls/hr 01/14/19 09:00 01/14/19 09:35 Sodium Chloride IV Infused DAILY JAZZ Infusion Insulin Aspart 1 - 5 unit 01/13/19 21:00 01/14/19 12:05 Novolog SUBQ 3 unit 0800,1200,1700,2100 JAZZ Administration Protocol Insulin Glargine 5 unit 01/13/19 21:00 01/13/19 21:28 Lantus Solostar SUBQ Not Given QPM [facility] Losartan Potassium 25 mg 01/14/19 09:00 01/14/19 09:00 Cozaar PO 25 mg DAILY JAZZ Administration Morphine Sulfate 2 mg 01/13/19 17:08 01/14/19 11:24 Morphine (Carpuject) IVP 2 mg Q2HR PRN Administration Pain 8 to 10 Oxycodone HCl 5 mg 01/13/19 17:08 01/13/19 21:01 Roxicodone PO 5 mg Q4HR PRN Administration Pain 5 to 7 Pantoprazole Sodium 40 mg 01/14/19 07:00 01/14/19 06:51 Protonix PO 40 mg QDAC JAZZ Administration Polyethylene Glycol 17 gm 01/14/19 09:00 01/14/19 09:01 Miralax PO 17 gm DAILY JAZZ Administration Prochlorperazine Edisylate 10 mg 01/13/19 17:08 01/13/19 19:18 Compazine Inj IVP 10 mg Q6HR PRN Administration Nausea / Vomiting Senna 8.6 - 17.2 mg 01/14/19 09:00 01/14/19 09:00 Senokot PO 8.6 mg DAILY JAZZ Administration Sodium Chloride 10 ml 01/13/19 17:08 01/14/19 05:10 Normal Saline Flush 0.9% IVP 10 ml PRN PRN Administration NEEDED PER PROVIDER ORDERS Sodium Chloride 10 ml 01/14/19 01:00 01/14/19 09:01 Normal Saline Flush 0.9% IVP 10 ml 0100,0900,1700 JAZZ Administration - Lab Result Fish Bone Diagrams: 01/14/19 11:50 01/14/19 11:50 - Additional Planning My Orders: My Active Orders 01/14/19 21:00 Aspirin Chewable [St Ciro Aspirin] 162 mg PO QPM Atorvastatin [Lipitor] 40 mg PO QPM Citalopram Hydrobromide [Celexa] 40 mg PO QPM DULoxetine [Cymbalta] 60 mg PO QPM Fenofibrate [Tricor] 144 mg PO QPM Metoprolol Tartrate [Lopressor] 25 mg PO BID glipiZIDE ER [Glucotrol Xl] 2.5 mg PO BID 01/14/19 Lunch Carb-controlled Diet [DIET] 01/15/19 05:00 BMP - BASIC METABOLIC PANEL [CHEM] DAILYLAB CBC - COMP BLD CT W/AUTO DIFF [HEME] DAILYLAB 01/15/19 07:00 Levothyroxine [Synthroid] 250 mcg PO QDAC 01/15/19 09:00 Cyanocobalamin [Vitamin B-12] 1,000 mcg PO DAILY traMADol [Ultram] 50 mg PO DAILY 01/16/19 05:00 BMP - BASIC METABOLIC PANEL [CHEM] DAILYLAB CBC - COMP BLD CT W/AUTO DIFF [HEME] DAILYLAB 01/17/19 05:00 BMP - BASIC METABOLIC PANEL [CHEM] DAILYLAB CBC - COMP BLD CT W/AUTO DIFF [HEME] DAILYLAB Subjective - Subjective Patient Reports: Feeling Better, Resting Comfortably Nursing Reports: Other (No N/V, is tolerating a diet.) Objective Vital Signs: Vital Signs - 24 hr 01/13/19 01/13/19 01/13/19 17:33 17:46 20:06 Temperature 37.2 C 37.3 C Heart Rate 86 Heart Rate [ Brachial] Heart Rate [ 106 H Radial] Respiratory 18 20 Rate Blood Pressure 122/67 Blood Pressure 168/72 H [Left Brachial artery] O2 Saturation 100 94 01/13/19 01/13/19 01/14/19 20:57 22:20 00:00 Temperature 37.3 C 37.4 C Heart Rate Heart Rate [ Brachial] Heart Rate [ 100 96 90 Radial] Respiratory 20 18 18 Rate Blood Pressure Blood Pressure 140/63 H 132/62 H [Left Brachial artery] O2 Saturation 94 95 96 01/14/19 01/14/19 01/14/19 03:40 05:06 07:58 Temperature 37.7 C H 36.6 C 36.7 C Heart Rate Heart Rate [ Brachial] Heart Rate [ 72 Radial] Respiratory 18 Rate Blood Pressure Blood Pressure 120/59 L [Left Brachial artery] O2 Saturation 95 01/14/19 16:00 Temperature 38.0 C H Heart Rate Heart Rate [ 97 Brachial] Heart Rate [ Radial] Respiratory 24 Rate Blood Pressure Blood Pressure 152/63 H [Left Brachial artery] O2 Saturation 98 Oxygen O2 Source Room air I&O (Last 24 Hrs): Intake and Output Totals x24h 01/12/19 01/13/19 01/14/19 23:59 23:59 23:59 Intake Total 2838 2960 Output Total 750 Balance 2838 2210 General: Alert, Oriented x3 HEENT: Mucous membr. moist/pink Neck: Supple, No JVD Neuro: Non Focal Cardiovascular: Regular rate, No murmurs Respiratory: No respiratory distress, Breath sounds nml Abdomen: Soft Extremities: No edema - Results Results: Laboratory Results WBC 13.4 x10^3/uL (4.8-10.8) H 01/14/19 11:50 RBC 3.48 10^6/uL (4.20-5.40) L 01/14/19 11:50 Hgb 8.6 g/dL (12.0-16.0) L 01/14/19 11:50 Hct 28.3 % (37.0-47.0) L 01/14/19 11:50 MCV 81.3 fL (81.0-99.0) 01/14/19 11:50 MCH 24.7 pg (27.0-31.0) L 01/14/19 11:50 MCHC 30.4 g/dL (32.0-36.0) L 01/14/19 11:50 RDW 15.3 % (12.0-15.0) H 01/14/19 11:50 Plt Count 331 10^3/uL (130-450) 01/14/19 11:50 MPV 9.9 fL (7.9-10.8) 01/14/19 11:50 Reticulocyte % (Auto) 1.10 % (0.5-2.3) 01/13/19 13:45 Neut # (Auto) Not Reportable 01/14/19 11:50 Lymph # (Auto) Not Reportable 01/14/19 11:50 [place] # (Auto) Not Reportable 01/14/19 11:50 Eos # (Auto) Not Reportable 01/14/19 11:50 Baso # (Auto) Not Reportable 01/14/19 11:50 Absolute Nucleated RBC Not Reportable 01/14/19 11:50 Total Counted 100 01/14/19 11:50 Band Neuts % (Manual) 9 % (0-10) 01/14/19 11:50 Abnorm Lymph % (Manual) 0 % 01/14/19 11:50 Myelocytes % 4 % (-0) H 01/14/19 11:50 Nucleated RBC % Not Reportable 01/14/19 11:50 Neutrophils # (Manual) 11.1 10^3/uL (1.5-6.6) H 01/14/19 11:50 Lymphocytes # (Manual) 0.5 10^3/uL (1.5-3.5) L 01/14/19 11:50 Monocytes # (Manual) 0.9 10^3/uL (0.0-1.0) 01/14/19 11:50 Eosinophils # (Manual) 0.3 10^3/uL (0-0.7) 01/14/19 11:50 Basophils # (Manual) 0.0 10^3/uL (0-0.1) 01/14/19 11:50 Differential Comment MANUAL DIFFERENTIAL 01/14/19 11:50 Manual Slide Review Indicated 01/14/19 11:50 RBC Morph Micro Appear 2+ ANISOCYTOSIS (NORMAL) 01/13/19 13:45 Absolute Retic 0.035 10^6/uL (0.020-0.110) 01/13/19 13:45 Sodium 127 mmol/L (135-145) L 01/14/19 11:50 Potassium 4.3 mmol/L (3.5-5.0) 01/14/19 11:50 Chloride 95 mmol/L (101-111) L 01/14/19 11:50 Carbon Dioxide 19 mmol/L (21-32) L 01/14/19 11:50 Anion Gap 13.0 (6-13) 01/14/19 11:50 BUN 34 mg/dL (6-20) H 01/14/19 11:50 Creatinine 2.1 mg/dL (0.4-1.0) H 01/14/19 11:50 Estimated GFR (MDRD) 24 (>89) L 01/14/19 11:50 Glucose 230 mg/dL (70-100) H 01/14/19 11:50 Glycated Hemoglobin 7.7 % (4.6-6.2) H 01/13/19 13:45 Estim Average Glucose 174 (70-100) H 01/13/19 13:45 Lactic Acid 1.8 mmol/L (0.5-2.2) 01/13/19 14:20 Calcium 8.5 mg/dL (8.5-10.3) 01/14/19 11:50 Magnesium 1.3 mg/dL (1.7-2.8) L 01/13/19 13:45 Iron 10 ug/dL (28-170) L 01/13/19 13:45 TIBC 332 ug/dL (250-450) 01/13/19 13:45 % Saturation 3 % (20-50) L 01/13/19 13:45 Transferrin 237 mg/dL (192-382) 01/13/19 13:45 Ferritin 116.9 ng/mL (11.0-306.8) 01/13/19 13:45 Total Bilirubin 1.0 mg/dL (0.2-1.0) 01/13/19 13:45 AST 59 IU/L (10-42) H 01/13/19 13:45 ALT 47 IU/L (10-60) 01/13/19 13:45 Alkaline Phosphatase 154 IU/L (42-121) H 01/13/19 13:45 Total Protein 7.2 g/dL (6.7-8.2) 01/13/19 13:45 Albumin 2.8 g/dL (3.2-5.5) L 01/13/19 13:45 Globulin 4.4 g/dL (2.1-4.2) H 01/13/19 13:45 Albumin/Globulin Ratio 0.6 (1.0-2.2) L 01/13/19 13:45 Lipase 15 U/L (22-51) L 01/13/19 13:45 Vitamin B12 1043 pg/mL (180-914) H 01/13/19 13:45 Urine Color DARK YELLOW 01/13/19 16:35 Urine Clarity HAZY (CLEAR) 01/13/19 16:35 Urine pH 6.0 PH (5.0-7.5) 01/13/19 16:35 Ur Specific [place] <=1.005 (1.002-1.030) 01/13/19 16:35 Urine Protein 100 mg/dL (NEGATIVE) H 01/13/19 16:35 Urine Glucose (UA) NEGATIVE mg/dL (NEGATIVE) 01/13/19 16:35 Urine Ketones NEGATIVE mg/dL (NEGATIVE) 01/13/19 16:35 Urine Occult Blood SMALL (NEGATIVE) H 01/13/19 16:35 Urine Nitrite POSITIVE (NEGATIVE) H 01/13/19 16:35 Urine Bilirubin NEGATIVE (NEGATIVE) 01/13/19 16:35 Urine Urobilinogen 1 (NORMAL) E.U./dL (NORMAL) 01/13/19 16:35 Ur Leukocyte Esterase TRACE (NEGATIVE) H 01/13/19 16:35 Urine RBC 0-5 /HPF (0-5) 01/13/19 16:35 Urine WBC 6-10 /HPF (0-5) H 01/13/19 16:35 Ur Squamous Epith Cells RARE Squamous (<= Few) 01/13/19 16:35 Amorphous Sediment Few /LPF 01/13/19 16:35 Urine Bacteria Few /HPF (None Seen) 01/13/19 16:35 Ur Microscopic Review INDICATED 01/13/19 16:35 Urine Culture Comments INDICATED 01/13/19 16:35 - Procedures Procedures: Procedures INSPECTION OF LOWER INTESTINAL TRACT, ENDO (11/23/15)
[2019-01-14] MEDS: SODIUM CHLORIDE 0.9% 1,000 ML IV SCH (18:55)
[2019-01-14] MEDS ORDERED: INSULIN NPH HUMAN 100 UNIT/1 ML 10 ML MDV SUBQ SCH (21:00)
[2019-01-14] MEDS: ATORVASTATIN 40 MG TABLET PO SCH (21:10)
[2019-01-14] MEDS: DULoxetine 30 MG CAPSULE PO SCH (21:10)
[2019-01-14] MEDS: FENOFIBRATE 48 MG TABLET PO SCH (21:11)
[2019-01-14] MEDS: CITALOPRAM HYDROBROMIDE 20 MG TABLET PO SCH (21:11)
[2019-01-14] MEDS: ASPIRIN CHEW 81 MG TABLET PO SCH (21:11)
[2019-01-14] MEDS: METOPROLOL TARTRATE 25 MG TABLET PO SCH (21:15)
[2019-01-14] MEDS: PHENAZOPYRIDINE 100 MG TABLET PO SCH ×5 (21:29→21:51)
[2019-01-14] MEDS ORDERED: PHENAZOPYRIDINE 100 MG TABLET PO SCH (22:00)
[2019-01-15] MEDS: SODIUM CHLORIDE FLUSH 0.9% 10 ML SYRINGE IVP SCH ×3 (06:19→17:08)
[2019-01-15] MEDS: PANTOPRAZOLE 40 MG TABLET PO SCH (06:20)
[2019-01-15] MEDS: PHENAZOPYRIDINE 100 MG TABLET PO SCH ×3 (06:21→21:19)
[2019-01-15] MEDS: LEVOTHYROXINE 125 MCG TABLET PO SCH (06:21)
[2019-01-15] MEDS: SODIUM CHLORIDE 0.9% 1,000 ML IV SCH ×2 (06:25→19:29)
[2019-01-15 06:28] LABS: BASOPHILS % (AUTO) 0.3 %; EOSINOPHILS % (AUTO) 2.3 %; HGB - HEMOGLOBIN 7.8 g/dL (12.0-16.0); LYMPHOCYTES % (AUTO) 6.3 %; MEAN CORPUSCULAR HEMOGLOBIN 24.7 pg (27.0-31.0); MEAN CORPUSCULAR HGB CONC 31.5 g/dL (32.0-36.0); MEAN CORPUSCULAR VOLUME 78.5 fL (81.0-99.0); MEAN PLATELET VOLUME 9.5 fL (7.9-10.8); MONOCYTES % (AUTO) 7.4 %; NEUTROPHILS % (AUTO) 70.9 %; PLT - PLATELET COUNT 335 10^3/uL (130-450); RED BLOOD COUNT 3.16 10^6/uL (4.20-5.40); RED CELL DISTRIBUTION WIDTH 15.3 % (12.0-15.0); WHITE BLOOD COUNT 17.5 x10^3/uL (4.8-10.8)
[2019-01-15 06:40] LABS: ABNORMAL LYMPHS % (MANUAL) 0 %; ALBUMIN 2.4 g/dL (3.2-5.5); ALBUMIN/GLOBULIN RATIO 0.5 (1.0-2.2); BILIRUBIN,TOTAL 1.1 mg/dL (0.2-1.0); CALCIUM 8.4 mg/dL (8.5-10.3); CREATININE 1.8 mg/dL (0.4-1.0); TOTAL PROTEIN 6.8 g/dL (6.7-8.2)
[2019-01-15 06:57] LABS: BAND NEUTROPHILS % (MANUAL) 11 %; EOSINOPHILS # (MANUAL) 0.2 10^3/uL (0-0.7); LYMPHOCYTES # (MANUAL) 1.2 10^3/uL (1.5-3.5); LYMPHOCYTES % (MANUAL) 7 %; METAMYELOCYTES % (MANUAL) 4 %; MONOCYTES # (MANUAL) 0.9 10^3/uL (0.0-1.0); MYELOCYTES % (MANUAL) 4 %
[2019-01-15 06:58] LABS: DIFFERENTIAL COMMENT MANUAL DIFFERENTIAL; PLATELET ESTIMATE, MANUAL NORMAL (130-450,000) (NORMAL)
[2019-01-15] MEDS: INSULIN ASPART 300 UNIT/3 ML PEN SUBQ SCH ×4 (08:06→21:20)
[2019-01-15] MEDS: LOSARTAN 50 MG TABLET PO SCH (08:09)
[2019-01-15] MEDS: DOCUSATE SODIUM 250 MG CAPSULE PO SCH (08:10)
[2019-01-15] MEDS: METOPROLOL TARTRATE 25 MG TABLET PO SCH ×2 (08:10→21:25)
[2019-01-15] MEDS: SENNA 8.6 MG TABLET PO SCH (08:11)
[2019-01-15] MEDS: MULTIVITAMIN TABLET PO SCH (08:11)
[2019-01-15] MEDS: traMADol 50 MG TABLET PO SCH (08:11)
[2019-01-15] MEDS: CYANOCOBALAMIN 500 MCG TABLET PO SCH (08:11)
[2019-01-15] MEDS: cefTRIAXone 2 GM in SODIUM CHLORIDE 0.9% MINIBAG 100 ML IV SCH (08:12)
[2019-01-15] MEDS: ENOXAPARIN 40 MG/0.4 ML SYRINGE SUBQ SCH (08:12)
[2019-01-15] MEDS: POLYETHYLENE GLYCOL 3350 17 GM PACKET PO SCH (08:12)
[2019-01-15] MEDS ORDERED: LOSARTAN 50 MG TABLET PO SCH (09:00)
--- NOTE | 2019-01-15 09:20 | PROVIDER PROGRESS NOTE ---
Assessment/Plan - Problem List (1) E. coli bacteremia Assessment/Plan: WBC went up, since yesterday. IV Rocephin is appropriate for the E coli. The blood cultures drawn yesterday, when she respiked a fever, are thus far still neg. No fever today. Will plan a 10-14 day total course of antibiotics. (2) UTI (urinary tract infection), bacterial Assessment/Plan: B-hemolytic Strep has grown out of urine culture from this admission. WBC went up, since yesterday. At the last ER visit, on 01/10/19, E coli had grown. (And she now has E coli in blood culture). Course of antibiotics is as above (3) XIOMARA (acute kidney injury) Assessment/Plan: Saline hydration was restarted yesterday afternoon, when she spiked a fever. Today the creat improved slightly from 2.1 to 1.8. Continue iv hydration today. Follow BMP daily. (4) DM type 2 (diabetes mellitus, type 2) Assessment/Plan: Patient is requesting to have the Humulin 70U sq bid used while here. Will restart that. Cont cc diet and ss Insulin coverage. (5) Hyponatremia Assessment/Plan: Continue iv saline today. Follow BMP daily (6) Hypomagnesemia Assessment/Plan: Replace. Follow Mg daily. (7) Hypothyroidism Assessment/Plan: Continue her home thyroid treatment (8) Hypertension Qualifiers: Hypertension type: essential hypertension Qualified Code(s): I10 - Essential (primary) hypertension Assessment/Plan: Her home BP meds were restarted (9) Depression with anxiety Assessment/Plan: Her home med was restarted (10) EDUARDO on CPAP Assessment/Plan: Her home CPAP device was ordered to be used while here (11) Anemia Qualifiers: Anemia type: iron deficiency Iron deficiency anemia type: other iron deficiency Qualified Code(s): D50.8 - Other iron deficiency anemias Assessment/Plan: This was felt to be from the recent surgery of the knee. Will check Iron panel, B12 and Folate levels and replace if low. (12) Hx of coronary artery disease Assessment/Plan: Stable during this admission - Current Meds Current Meds: Current Medications Generic Name Dose Route Start Last Admin Trade Name Freq PRN Reason Stop Dose Admin Acetaminophen 650 mg 01/13/19 17:08 01/14/19 16:11 Tylenol PO 650 mg Q4HR PRN Administration Pain 1 to 4 Aspirin 162 mg 01/14/19 21:00 01/14/19 21:11 St Ciro Aspirin PO 162 mg QPM JAZZ Administration Atorvastatin Calcium 40 mg 01/14/19 21:00 01/14/19 21:10 Lipitor PO 40 mg QPM JAZZ Administration Citalopram Hydrobromide 40 mg 01/14/19 21:00 01/14/19 21:11 Celexa PO 40 mg QPM JAZZ Administration Cyanocobalamin 1,000 mcg 01/15/19 09:00 01/15/19 08:11 Vitamin B-12 PO 1,000 mcg DAILY JAZZ Administration Docusate Sodium 250 - 500 mg 01/14/19 09:00 01/15/19 08:10 Colace 250mg Capsule PO 250 mg DAILY JAZZ Administration Duloxetine HCl 60 mg 01/14/19 21:00 01/14/19 21:10 Cymbalta PO 60 mg QPM JAZZ Administration Enoxaparin Sodium 40 mg 01/14/19 09:00 01/15/19 08:12 Lovenox SUBQ 40 mg DAILY JAZZ Administration Fenofibrate 144 mg 01/14/19 21:00 01/14/19 21:11 Tricor PO 144 mg QPM JAZZ Administration Glipizide 2.5 mg 01/14/19 21:00 01/14/19 21:16 Glucotrol Xl PO Not Given BID [facility] Ceftriaxone Sodium 2 gm/ 100 mls @ 200 mls/hr 01/14/19 09:00 01/15/19 09:10 Sodium Chloride IV Infused DAILY JAZZ Infusion Sodium Chloride 1,000 mls @ 83.333 mls/hr 01/14/19 19:00 01/15/19 06:25 Normal Saline 0.9% IV 83.333 mls/hr .Q12H JAZZ Administration Insulin Aspart 1 - 9 unit 01/14/19 17:00 01/15/19 08:06 Novolog SUBQ 1 unit 0800,1200,1700,2100 JAZZ Administration Protocol Insulin Human NPH 70 unit 01/14/19 21:00 01/14/19 21:21 Novolin N SUBQ 70 unit QPM JAZZ Administration Levothyroxine Sodium 250 mcg 01/15/19 07:00 01/15/19 06:21 Synthroid PO 250 mcg QDAC JAZZ Administration Losartan Potassium 25 mg 01/14/19 09:00 01/15/19 08:09 Cozaar PO 25 mg DAILY JAZZ Administration Metoprolol Tartrate 25 mg 01/14/19 21:00 01/15/19 08:10 Lopressor PO 25 mg BID JAZZ Administration Morphine Sulfate 2 mg 01/13/19 17:08 01/14/19 11:24 Morphine (Carpuject) IVP 2 mg Q2HR PRN Administration Pain 8 to 10 Multivitamins 1 tab 01/15/19 09:00 01/15/19 08:11 Theragran PO 1 tab DAILY JAZZ Administration Oxycodone HCl 5 mg 01/13/19 17:08 01/13/19 21:01 Roxicodone PO 5 mg Q4HR PRN Administration Pain 5 to 7 Pantoprazole Sodium 40 mg 01/14/19 07:00 01/15/19 06:20 Protonix PO 40 mg QDAC JAZZ Administration Phenazopyridine HCl 100 mg 01/15/19 06:00 01/15/19 06:21 Pyridium PO 01/16/19 14:01 100 mg TID JAZZ Administration Polyethylene Glycol 17 gm 01/14/19 09:00 01/15/19 08:12 Miralax PO 17 gm DAILY JAZZ Administration Prochlorperazine Edisylate 10 mg 01/13/19 17:08 01/13/19 19:18 Compazine Inj IVP 10 mg Q6HR PRN Administration Nausea / Vomiting Senna 8.6 - 17.2 mg 01/14/19 09:00 01/15/19 08:11 Senokot PO 8.6 mg DAILY JAZZ Administration Sodium Chloride 10 ml 01/13/19 17:08 01/14/19 18:55 Normal Saline Flush 0.9% IVP 10 ml PRN PRN Administration NEEDED PER PROVIDER ORDERS Sodium Chloride 10 ml 01/14/19 01:00 01/15/19 06:19 Normal Saline Flush 0.9% IVP Not Given 0100,0900,1700 JAZZ Tramadol HCl 50 mg 01/15/19 09:00 01/15/19 08:11 Ultram PO 50 mg DAILY JAZZ Administration - Lab Result Fish Bone Diagrams: 01/15/19 06:19 01/15/19 06:19 - Additional Planning My Orders: My Active Orders 01/14/19 17:00 Insulin Aspart [NovoLOG] 1 - 9 unit SUBQ 0800,1200,1700,2100 01/14/19 17:33 CULTURE, BLOOD #1 [RM] Stat 01/14/19 17:38 CULTURE, BLOOD #2 [RM] Stat 01/14/19 19:00 Sodium Chloride 0.9% [Normal Saline 0.9%] 1,000 ml IV 83.333 mls/hr 01/14/19 21:00 Aspirin Chewable [St Ciro Aspirin] 162 mg PO QPM Atorvastatin [Lipitor] 40 mg PO QPM Citalopram Hydrobromide [Celexa] 40 mg PO QPM DULoxetine [Cymbalta] 60 mg PO QPM Fenofibrate [Tricor] 144 mg PO QPM Insulin NPH Human [NovoLIN N] 70 unit SUBQ QPM Metoprolol Tartrate [Lopressor] 25 mg PO BID glipiZIDE ER [Glucotrol Xl] 2.5 mg PO BID 01/14/19 Lunch Carb-controlled Diet [DIET] 01/15/19 06:06 Home CPAP/BiPAP [RC] .ONCE 01/15/19 07:00 Levothyroxine [Synthroid] 250 mcg PO QDAC 01/15/19 09:00 Cyanocobalamin [Vitamin B-12] 1,000 mcg PO DAILY Multivitamin [Theragran] 1 tab PO DAILY traMADol [Ultram] 50 mg PO DAILY 01/16/19 05:00 CBC - COMP BLD CT W/AUTO DIFF [HEME] DAILYLAB CMP [COMPREHENSIVE METABOLIC PANEL] [CHEM] DAILYLAB 01/17/19 05:00 CBC - COMP BLD CT W/AUTO DIFF [HEME] DAILYLAB CMP [COMPREHENSIVE METABOLIC PANEL] [CHEM] DAILYLAB Subjective - Subjective Patient Reports: Feeling Better, Resting Comfortably Objective Vital Signs: Vital Signs - 24 hr 01/14/19 01/14/19 01/14/19 16:00 19:16 21:15 Temperature 38.0 C H 36.9 C Heart Rate [ 97 Brachial] Respiratory 24 Rate Blood Pressure 138/59 H Blood Pressure 152/63 H [Left Brachial artery] Blood Pressure [Right Brachial artery] O2 Saturation 98 01/15/19 01/15/19 01/15/19 00:00 07:31 08:10 Temperature 36.8 C 37.0 C Heart Rate [ 73 73 Brachial] Respiratory 20 20 Rate Blood Pressure 114/59 L Blood Pressure 128/62 [Left Brachial artery] Blood Pressure 114/59 L [Right Brachial artery] O2 Saturation 93 92 Oxygen O2 Source Room air I&O (Last 24 Hrs): Intake and Output Totals x24h 01/13/19 01/14/19 01/15/19 23:59 23:59 23:59 Intake Total 2838 3840 1100 Output Total 750 700 Balance 2838 3090 400 General: Alert, Oriented x3 HEENT: Mucous membr. moist/pink Neck: Supple, No JVD Neuro: Non Focal Cardiovascular: Regular rate Respiratory: No respiratory distress Abdomen: Soft Extremities: No edema - Results Results: Laboratory Results WBC 17.5 x10^3/uL (4.8-10.8) H 01/15/19 06:19 RBC 3.16 10^6/uL (4.20-5.40) L 01/15/19 06:19 Hgb 7.8 g/dL (12.0-16.0) L 01/15/19 06:19 Hct 24.8 % (37.0-47.0) L 01/15/19 06:19 MCV 78.5 fL (81.0-99.0) L 01/15/19 06:19 MCH 24.7 pg (27.0-31.0) L 01/15/19 06:19 MCHC 31.5 g/dL (32.0-36.0) L 01/15/19 06:19 RDW 15.3 % (12.0-15.0) H 01/15/19 06:19 Plt Count 335 10^3/uL (130-450) 01/15/19 06:19 MPV 9.5 fL (7.9-10.8) 01/15/19 06:19 Reticulocyte % (Auto) 1.10 % (0.5-2.3) 01/13/19 13:45 Neut # (Auto) Not Reportable 01/15/19 06:19 Lymph # (Auto) Not Reportable 01/15/19 06:19 [place] # (Auto) Not Reportable 01/15/19 06:19 Eos # (Auto) Not Reportable 01/15/19 06:19 Baso # (Auto) Not Reportable 01/15/19 06:19 Absolute Nucleated RBC Not Reportable 01/15/19 06:19 Total Counted 100 01/15/19 06:19 Band Neuts % (Manual) 11 % (0-10) H 01/15/19 06:19 Abnorm Lymph % (Manual) 0 % 01/15/19 06:19 Metamyelocytes % 4 % (-0) H 01/15/19 06:19 Myelocytes % 4 % (-0) H 01/15/19 06:19 Nucleated RBC % Not Reportable 01/15/19 06:19 Neutrophils # (Manual) 13.8 10^3/uL (1.5-6.6) H 01/15/19 06:19 Lymphocytes # (Manual) 1.2 10^3/uL (1.5-3.5) L 01/15/19 06:19 Monocytes # (Manual) 0.9 10^3/uL (0.0-1.0) 01/15/19 06:19 Eosinophils # (Manual) 0.2 10^3/uL (0-0.7) 01/15/19 06:19 Basophils # (Manual) 0.0 10^3/uL (0-0.1) 01/15/19 06:19 Differential Comment MANUAL DIFFERENTIAL 01/15/19 06:19 Manual Slide Review Indicated 01/14/19 11:50 WBC Morphology 1+ TOXIC GRANULATION (NORMAL) 01/15/19 06:19 Platelet Estimate NORMAL (130-450,000) (NORMAL) 01/15/19 06:19 RBC Morph Micro Appear 1+ HYPOCHROMASIA (NORMAL) 1+ MICROCYTOSIS (NORMAL) 01/15/19 06:19 RBC Morph Micro Appear 1+ HYPOCHROMASIA (NORMAL) 1+ MICROCYTOSIS (NORMAL) 01/15/19 06:19 Absolute Retic 0.035 10^6/uL (0.020-0.110) 01/13/19 13:45 Sodium 129 mmol/L (135-145) L 01/15/19 06:19 Potassium 4.4 mmol/L (3.5-5.0) 01/15/19 06:19 Chloride 99 mmol/L (101-111) L 01/15/19 06:19 Carbon Dioxide 20 mmol/L (21-32) L 01/15/19 06:19 Anion Gap 10.0 (6-13) 01/15/19 06:19 BUN 36 mg/dL (6-20) H 01/15/19 06:19 Creatinine 1.8 mg/dL (0.4-1.0) H 01/15/19 06:19 Estimated GFR (MDRD) 29 (>89) L 01/15/19 06:19 Glucose 173 mg/dL (70-100) H 01/15/19 06:19 Glycated Hemoglobin 7.7 % (4.6-6.2) H 01/13/19 13:45 Estim Average Glucose 174 (70-100) H 01/13/19 13:45 Lactic Acid 1.8 mmol/L (0.5-2.2) 01/13/19 14:20 Calcium 8.4 mg/dL (8.5-10.3) L 01/15/19 06:19 Magnesium 1.3 mg/dL (1.7-2.8) L 01/13/19 13:45 Iron 10 ug/dL (28-170) L 01/13/19 13:45 TIBC 332 ug/dL (250-450) 01/13/19 13:45 % Saturation 3 % (20-50) L 01/13/19 13:45 Transferrin 237 mg/dL (192-382) 01/13/19 13:45 Ferritin 116.9 ng/mL (11.0-306.8) 01/13/19 13:45 Total Bilirubin 1.1 mg/dL (0.2-1.0) H 01/15/19 06:19 AST 63 IU/L (10-42) H 01/15/19 06:19 ALT 54 IU/L (10-60) 01/15/19 06:19 Alkaline Phosphatase 166 IU/L (42-121) H 01/15/19 06:19 Total Protein 6.8 g/dL (6.7-8.2) 01/15/19 06:19 Albumin 2.4 g/dL (3.2-5.5) L 01/15/19 06:19 Globulin 4.4 g/dL (2.1-4.2) H 01/15/19 06:19 Albumin/Globulin Ratio 0.5 (1.0-2.2) L 01/15/19 06:19 Lipase 15 U/L (22-51) L 01/13/19 13:45 Vitamin B12 1043 pg/mL (180-914) H 01/13/19 13:45 Urine Color DARK YELLOW 01/13/19 16:35 Urine Clarity HAZY (CLEAR) 01/13/19 16:35 Urine pH 6.0 PH (5.0-7.5) 01/13/19 16:35 Ur Specific [place] <=1.005 (1.002-1.030) 01/13/19 16:35 Urine Protein 100 mg/dL (NEGATIVE) H 01/13/19 16:35 Urine Glucose (UA) NEGATIVE mg/dL (NEGATIVE) 01/13/19 16:35 Urine Ketones NEGATIVE mg/dL (NEGATIVE) 01/13/19 16:35 Urine Occult Blood SMALL (NEGATIVE) H 01/13/19 16:35 Urine Nitrite POSITIVE (NEGATIVE) H 01/13/19 16:35 Urine Bilirubin NEGATIVE (NEGATIVE) 01/13/19 16:35 Urine Urobilinogen 1 (NORMAL) E.U./dL (NORMAL) 01/13/19 16:35 Ur Leukocyte Esterase TRACE (NEGATIVE) H 01/13/19 16:35 Urine RBC 0-5 /HPF (0-5) 01/13/19 16:35 Urine WBC 6-10 /HPF (0-5) H 01/13/19 16:35 Ur Squamous Epith Cells RARE Squamous (<= Few) 01/13/19 16:35 Amorphous Sediment Few /LPF 01/13/19 16:35 Urine Bacteria Few /HPF (None Seen) 01/13/19 16:35 Ur Microscopic Review INDICATED 01/13/19 16:35 Urine Culture Comments INDICATED 01/13/19 16:35 - Procedures Procedures: Procedures INSPECTION OF LOWER INTESTINAL TRACT, ENDO (11/23/15)
[2019-01-15] MEDS: INSULIN NPH HUMAN 100 UNIT/1 ML 10 ML MDV SUBQ SCH ×2 (10:16→21:19)
[2019-01-15] MEDS: ACETAMINOPHEN 325 MG TABLET PO PRN (11:29)
[2019-01-15] MEDS: DULoxetine 30 MG CAPSULE PO SCH (21:18)
[2019-01-15] MEDS: CITALOPRAM HYDROBROMIDE 20 MG TABLET PO SCH (21:18)
[2019-01-15] MEDS: ATORVASTATIN 40 MG TABLET PO SCH (21:18)
[2019-01-15] MEDS: FENOFIBRATE 48 MG TABLET PO SCH (21:19)
[2019-01-15] MEDS: ASPIRIN CHEW 81 MG TABLET PO SCH (21:24)
[2019-01-16] MEDS: SODIUM CHLORIDE FLUSH 0.9% 10 ML SYRINGE IVP SCH ×3 (00:54→16:33)
[2019-01-16] MEDS: LEVOTHYROXINE 125 MCG TABLET PO SCH (06:22)
[2019-01-16] MEDS: PANTOPRAZOLE 40 MG TABLET PO SCH (06:22)
[2019-01-16] MEDS: PHENAZOPYRIDINE 100 MG TABLET PO SCH ×2 (06:22→14:22)
[2019-01-16] MEDS: ACETAMINOPHEN 325 MG TABLET PO PRN (06:23)
[2019-01-16] MEDS: SODIUM CHLORIDE 0.9% 1,000 ML IV SCH ×2 (06:25→14:16)
[2019-01-16 06:56] LABS: BASOPHILS % (AUTO) 0.6 %; EOSINOPHILS % (AUTO) 2.3 %; HGB - HEMOGLOBIN 8.3 g/dL (12.0-16.0); LYMPHOCYTES % (AUTO) 8.4 %; MEAN CORPUSCULAR HEMOGLOBIN 25.5 pg (27.0-31.0); MEAN CORPUSCULAR HGB CONC 32.3 g/dL (32.0-36.0); MEAN CORPUSCULAR VOLUME 78.8 fL (81.0-99.0); MEAN PLATELET VOLUME 9.6 fL (7.9-10.8); NEUTROPHILS % (AUTO) 61.2 %; PLT - PLATELET COUNT 376 10^3/uL (130-450); RED BLOOD COUNT 3.26 10^6/uL (4.20-5.40); RED CELL DISTRIBUTION WIDTH 15.6 % (12.0-15.0); WHITE BLOOD COUNT 19.1 x10^3/uL (4.8-10.8)
[2019-01-16 07:11] LABS: ALBUMIN 2.3 g/dL (3.2-5.5); ALBUMIN/GLOBULIN RATIO 0.5 (1.0-2.2); BILIRUBIN,TOTAL 1.2 mg/dL (0.2-1.0); CALCIUM 8.7 mg/dL (8.5-10.3); CREATININE 1.5 mg/dL (0.4-1.0); TOTAL PROTEIN 6.8 g/dL (6.7-8.2)
[2019-01-16 07:41] LABS: ABNORMAL LYMPHS % (MANUAL) 0 %
[2019-01-16 07:46] LABS: BAND NEUTROPHILS % (MANUAL) 12 %; BASOPHILS # (MANUAL) 0.2 10^3/uL (0-0.1); BASOPHILS % (MANUAL) 1 %; DIFFERENTIAL COMMENT MANUAL DIFFERENTIAL; LYMPHOCYTES # (MANUAL) 1.3 10^3/uL (1.5-3.5); LYMPHOCYTES % (MANUAL) 7 %; METAMYELOCYTES % (MANUAL) 4 %; MONOCYTES # (MANUAL) 0.8 10^3/uL (0.0-1.0); MYELOCYTES % (MANUAL) 8 %
[2019-01-16] MEDS: cefTRIAXone 2 GM in SODIUM CHLORIDE 0.9% MINIBAG 100 ML IV SCH (09:54)
[2019-01-16 09:55] LABS: % IRON SATURATION 15 % (20-50); IRON 44 ug/dL (28-170); TOTAL IRON BINDING CAPACITY 302 ug/dL (250-450); TRANSFERRIN 216 mg/dL (192-382)
[2019-01-16] MEDS: DOCUSATE SODIUM 250 MG CAPSULE PO SCH (09:57)
[2019-01-16] MEDS: CYANOCOBALAMIN 500 MCG TABLET PO SCH (09:57)
[2019-01-16] MEDS: MULTIVITAMIN TABLET PO SCH (10:10)
[2019-01-16] MEDS: METOPROLOL TARTRATE 25 MG TABLET PO SCH ×2 (10:10→21:18)
[2019-01-16] MEDS: LOSARTAN 50 MG TABLET PO SCH (10:12)
[2019-01-16] MEDS: traMADol 50 MG TABLET PO SCH (10:12)
[2019-01-16] MEDS: INSULIN NPH HUMAN 100 UNIT/1 ML 10 ML MDV SUBQ SCH ×2 (10:13→21:19)
[2019-01-16] MEDS: ENOXAPARIN 40 MG/0.4 ML SYRINGE SUBQ SCH (10:13)
[2019-01-16 10:17] LABS: FOLATE 16.74 ng/mL (5.90 - >24.8)
[2019-01-16] MEDS: SENNA 8.6 MG TABLET PO SCH (10:27)
[2019-01-16] MEDS: POLYETHYLENE GLYCOL 3350 17 GM PACKET PO SCH (10:27)
[2019-01-16] MEDS: INSULIN ASPART 300 UNIT/3 ML PEN SUBQ SCH ×4 (10:28→21:19)
--- NOTE | 2019-01-16 13:08 | XRAY Report ---
Reason: SOB and elev WBC, eval for pneumonia Procedure Date: 01/16/2019 Accession Number: [id number] / [id number] Procedure: XR - Chest 1 View X-Ray CPT Code: 60690 FULL RESULT: EXAM: CHEST RADIOGRAPHY EXAM DATE: 01/16/2019 12:40 PM. CLINICAL HISTORY: SOB and elev WBC, eval for pneumonia. COMPARISON: 01/13/2019. TECHNIQUE: 1 view. FINDINGS: Lungs/Pleura: The interstitial markings remain slightly increased consistent with mild edema. No focal infiltrate or pleural effusion. No pneumothorax. Mediastinum: Stable prominent mediastinal contour, post sternotomy. Other: Changes from prior right breast surgery. IMPRESSION: Mild interstitial edema. RADIA
[2019-01-16] MEDS: MORPHINE 2 MG/ML CARPUJECT IVP PRN (14:22)
[2019-01-16] MEDS: oxyCODONE 5 MG TABLET PO PRN (16:15)
--- NOTE | 2019-01-16 16:39 | Ultrasound Report ---
Reason: Rising LFTs, bilirub WBC, eval for cholecystitis Procedure Date: 01/16/2019 Accession Number: [id number] / [id number] Procedure: US - Abdomen Limited CPT Code: FULL RESULT: EXAM: ABDOMEN ULTRASOUND LIMITED, RUQ EXAM DATE: 01/16/2019 03:39 PM. CLINICAL HISTORY: Rising LFTs, bilirub WBC, eval for cholecystitis. COMPARISON: ABDOMEN/PELVIS W/O 01/13/2019 3:42 PM. TECHNIQUE: Real-time scanning was performed with static images obtained. FINDINGS: Liver: The liver parenchyma is echogenic and enlarged. There is no focal liver mass. 25.1 cm. Main portal vein flow: Hepatopetal. Gallbladder: Gallbladder surgically absent. Biliary System: CBD measures 6.1 mm. No intrahepatic or extrahepatic ductal dilatation. Other: Right kidney measures 13.5 cm in length without hydronephrosis. No right upper quadrant free fluid. IMPRESSION: 1. Hepatomegaly with steatosis of the liver. 2. Post cholecystectomy. No biliary dilatation. RADIA
--- NOTE | 2019-01-16 19:07 | PROVIDER PROGRESS NOTE ---
Assessment/Plan - Problem List (1) Elevated WBC count Assessment/Plan: The WBC count continues to rise with a higher L shift and Bandemia. I called the ID Fellow at and discussed the case. She advised continuing iv Rocephin and getting repeat abdomen CT imaging with contrast, and if no obvious source is found, then the patient will need transfer to a facility with higher level of care and with ID consultants. (2) Elevated LFTs Assessment/Plan: The ID Fellow at thought that the Macrodantin could have caused liver toxicity. In addition, the increase could be from passive congestion due to iv hydration for 2 days. Since the CXR done today, does suggest mild volume overload, will decrease iv rate to KVO. Will image the RUQ with ultrasound. Will obtain CT abdomen tomorrow if renal ultrasound is neg. Will list Macrodantin as an allergy that caused transaminitis. (3) E. coli bacteremia Assessment/Plan: Continue with iv Rocephin. (4) UTI (urinary tract infection), bacterial Assessment/Plan: The ID fellow felt that this was a contaminant but we reviewed the sensitivities from the E. coli that grew from the ER visit day when she was sent home. That E. coli has same sensitivities as this admissions E. coli found in the blood. Recommendation was to continue Ceftriaxone. (5) XIOMARA (acute kidney injury) Assessment/Plan: Slowly improving on iv fluids at 83 cc/hr for 2 days. (6) DM type 2 (diabetes mellitus, type 2) Assessment/Plan: Conitnue Humulin, ss Insulin and cc diet (7) Hyponatremia Assessment/Plan: Improving with iv saline for the past 2 days (8) Hypomagnesemia Assessment/Plan: Correct and follow labs (9) Hypothyroidism Assessment/Plan: Continue her home meds (10) Hypertension Qualifiers: Hypertension type: essential hypertension Qualified Code(s): I10 - Essential (primary) hypertension Assessment/Plan: Continue her home meds (11) Depression with anxiety Assessment/Plan: Continue her home meds (12) EDUARDO on CPAP Assessment/Plan: Continue her home CPAP device. (13) Anemia Qualifiers: Anemia type: iron deficiency Iron deficiency anemia type: other iron deficiency Qualified Code(s): D50.8 - Other iron deficiency anemias Assessment/Plan: Begin iron supplements (14) Hx of coronary artery disease Assessment/Plan: SOB today and a CXR showed mild vascular overload. Will continue iv fluids for XIOMARA but decrease iv rate to TKO - Current Meds Current Meds: Current Medications Generic Name Dose Route Start Last Admin Trade Name Freq PRN Reason Stop Dose Admin Acetaminophen 650 mg 01/13/19 17:08 01/16/19 06:23 Tylenol PO 650 mg Q4HR PRN Administration Pain 1 to 4 Aspirin 162 mg 01/14/19 21:00 01/15/19 21:24 St Ciro Aspirin PO 162 mg QPM JAZZ Administration Atorvastatin Calcium 40 mg 01/14/19 21:00 01/15/19 21:18 Lipitor PO 40 mg QPM JAZZ Administration Citalopram Hydrobromide 40 mg 01/14/19 21:00 01/15/19 21:18 Celexa PO 40 mg QPM JAZZ Administration Cyanocobalamin 1,000 mcg 01/15/19 09:00 01/16/19 09:57 Vitamin B-12 PO 1,000 mcg DAILY JAZZ Administration Docusate Sodium 250 - 500 mg 01/14/19 09:00 01/16/19 09:57 Colace 250mg Capsule PO 250 mg DAILY JAZZ Administration Duloxetine HCl 60 mg 01/14/19 21:00 01/15/19 21:18 Cymbalta PO 60 mg QPM JAZZ Administration Enoxaparin Sodium 40 mg 01/14/19 09:00 01/16/19 10:13 Lovenox SUBQ 40 mg DAILY JAZZ Administration Fenofibrate 144 mg 01/14/19 21:00 01/15/19 21:19 Tricor PO 144 mg QPM JAZZ Administration Glipizide 2.5 mg 01/14/19 21:00 01/16/19 10:10 Glucotrol Xl PO 2.5 mg BID JAZZ Administration Ceftriaxone Sodium 2 gm/ 100 mls @ 200 mls/hr 01/14/19 09:00 01/16/19 18:40 Sodium Chloride IV Infused DAILY JAZZ Infusion Sodium Chloride 1,000 mls @ 30 mls/hr 01/16/19 13:11 01/16/19 14:16 Normal Saline 0.9% IV Not Given .[id number] [facility] Insulin Aspart 1 - 9 unit 01/14/19 17:00 01/16/19 17:01 Novolog SUBQ Not Given 0800,1200,1700,2100 [facility] Protocol Insulin Human NPH 70 unit 01/15/19 10:08 01/16/19 10:13 Novolin N SUBQ 70 unit BID JAZZ Administration Levothyroxine Sodium 250 mcg 01/15/19 07:00 01/16/19 06:22 Synthroid PO 250 mcg QDAC JAZZ Administration Losartan Potassium 25 mg 01/14/19 09:00 01/16/19 10:12 Cozaar PO 25 mg DAILY JAZZ Administration Metoprolol Tartrate 25 mg 01/14/19 21:00 01/16/19 10:10 Lopressor PO 25 mg BID JAZZ Administration Morphine Sulfate 2 mg 01/13/19 17:08 01/16/19 14:22 Morphine (Carpuject) IVP 2 mg Q2HR PRN Administration Pain 8 to 10 Multivitamins 1 tab 01/15/19 09:00 01/16/19 10:10 Theragran PO 1 tab DAILY JAZZ Administration Oxycodone HCl 5 mg 01/13/19 17:08 01/16/19 16:15 Roxicodone PO 5 mg Q4HR PRN Administration Pain 5 to 7 Pantoprazole Sodium 40 mg 01/14/19 07:00 01/16/19 06:22 Protonix PO 40 mg QDAC JAZZ Administration Polyethylene Glycol 17 gm 01/14/19 09:00 01/16/19 10:27 Miralax PO 17 gm DAILY JAZZ Administration Prochlorperazine Edisylate 10 mg 01/13/19 17:08 01/13/19 19:18 Compazine Inj IVP 10 mg Q6HR PRN Administration Nausea / Vomiting Senna 8.6 - 17.2 mg 01/14/19 09:00 01/16/19 10:27 Senokot PO 8.6 mg DAILY JAZZ Administration Sodium Chloride 10 ml 01/13/19 17:08 01/14/19 18:55 Normal Saline Flush 0.9% IVP 10 ml PRN PRN Administration NEEDED PER PROVIDER ORDERS Sodium Chloride 10 ml 01/14/19 01:00 01/16/19 16:33 Normal Saline Flush 0.9% IVP Not Given 0100,0900,1700 [facility] Tramadol HCl 50 mg 01/15/19 09:00 01/16/19 10:12 Ultram PO 50 mg DAILY JAZZ Administration - Lab Result Fish Bone Diagrams: 01/17/19 04:50 01/17/19 04:50 - Additional Planning My Orders: My Active Orders 01/16/19 13:11 Sodium Chloride 0.9% [Normal Saline 0.9%] 1,000 ml IV 30 mls/hr 01/16/19 Dinner Carb-controlled Diet [DIET] 01/17/19 05:00 CBC - COMP BLD CT W/AUTO DIFF [HEME] DAILYLAB CMP [COMPREHENSIVE METABOLIC PANEL] [CHEM] DAILYLAB Subjective - Subjective Patient Reports: Back Pain, Shortness of Breath Objective Vital Signs: Vital Signs - 24 hr 01/15/19 01/16/19 01/16/19 21:25 00:40 04:59 Temperature 36.6 C 36.4 C L Heart Rate [ 70 Brachial] Heart Rate [ Radial] Respiratory 21 Rate Blood Pressure 137/65 H Blood Pressure [Left Brachial artery] Blood Pressure [Left Radial artery] Blood Pressure 140/67 H [Right Brachial artery] O2 Saturation 95 01/16/19 01/16/19 01/16/19 07:55 10:10 15:39 Temperature 36.8 C 36.7 C Heart Rate [ 68 Brachial] Heart Rate [ 63 Radial] Respiratory 18 22 Rate Blood Pressure 142/73 H Blood Pressure 142/73 H [Left Brachial artery] Blood Pressure 150/79 H [Left Radial artery] Blood Pressure [Right Brachial artery] O2 Saturation 96 94 Oxygen O2 Source Room air I&O (Last 24 Hrs): Intake and Output Totals x24h 01/14/19 01/15/19 01/16/19 23:59 23:59 23:59 Intake Total 3840 4140 2453.049 Output Total 520 513 4379 Balance 3090 3440 103.049 General: Alert HEENT: Other (Flushed) Neck: Supple Neuro: Alert, Non Focal Cardiovascular: Regular rate, No murmurs Respiratory: No respiratory distress Abdomen: Normal bowel sounds, Soft, Other (Hypertympanic. Mildly tender in RUQ.) Extremities: No edema - Results Results: Laboratory Results WBC 19.1 x10^3/uL (4.8-10.8) H 01/16/19 06:43 RBC 3.26 10^6/uL (4.20-5.40) L 01/16/19 06:43 Hgb 8.3 g/dL (12.0-16.0) L 01/16/19 06:43 Hct 25.7 % (37.0-47.0) L 01/16/19 06:43 MCV 78.8 fL (81.0-99.0) L 01/16/19 06:43 MCH 25.5 pg (27.0-31.0) L 01/16/19 06:43 MCHC 32.3 g/dL (32.0-36.0) 01/16/19 06:43 RDW 15.6 % (12.0-15.0) H 01/16/19 06:43 Plt Count 376 10^3/uL (130-450) 01/16/19 06:43 MPV 9.6 fL (7.9-10.8) 01/16/19 06:43 Reticulocyte % (Auto) 1.10 % (0.5-2.3) 01/13/19 13:45 Neut # (Auto) Not Reportable 01/16/19 06:43 Lymph # (Auto) Not Reportable 01/16/19 06:43 [place] # (Auto) Not Reportable 01/16/19 06:43 Eos # (Auto) Not Reportable 01/16/19 06:43 Baso # (Auto) Not Reportable 01/16/19 06:43 Absolute Nucleated RBC Not Reportable 01/16/19 06:43 Total Counted 100 01/16/19 06:43 Band Neuts % (Manual) 12 % (0-10) H 01/16/19 06:43 Abnorm Lymph % (Manual) 0 % 01/16/19 06:43 Metamyelocytes % 4 % (-0) H 01/16/19 06:43 Myelocytes % 8 % (-0) H 01/16/19 06:43 Nucleated RBC % Not Reportable 01/16/19 06:43 Neutrophils # (Manual) 13.6 10^3/uL (1.5-6.6) H 01/16/19 06:43 Lymphocytes # (Manual) 1.3 10^3/uL (1.5-3.5) L 01/16/19 06:43 Monocytes # (Manual) 0.8 10^3/uL (0.0-1.0) 01/16/19 06:43 Eosinophils # (Manual) 1.0 10^3/uL (0-0.7) H 01/16/19 06:43 Basophils # (Manual) 0.2 10^3/uL (0-0.1) H 01/16/19 06:43 Differential Comment MANUAL DIFFERENTIAL 01/16/19 06:43 Manual Slide Review Indicated 01/16/19 06:43 WBC Morphology 1+ TOXIC GRANULATION (NORMAL) 01/15/19 06:19 Platelet Estimate NORMAL (130-450,000) (NORMAL) 01/15/19 06:19 RBC Morph Micro Appear 1+ HYPOCHROMASIA (NORMAL) 1+ MICROCYTOSIS (NORMAL) 01/15/19 06:19 RBC Morph Micro Appear 1+ HYPOCHROMASIA (NORMAL) 1+ MICROCYTOSIS (NORMAL) 01/15/19 06:19 Absolute Retic 0.035 10^6/uL (0.020-0.110) 01/13/19 13:45 Sodium 134 mmol/L (135-145) L 01/16/19 06:43 Potassium 4.8 mmol/L (3.5-5.0) 01/16/19 06:43 Chloride 104 mmol/L (101-111) 01/16/19 06:43 Carbon Dioxide 22 mmol/L (21-32) 01/16/19 06:43 Anion Gap 8.0 (6-13) 01/16/19 06:43 BUN 34 mg/dL (6-20) H 01/16/19 06:43 Creatinine 1.5 mg/dL (0.4-1.0) H 01/16/19 06:43 Estimated GFR (MDRD) 35 (>89) L 01/16/19 06:43 Glucose 175 mg/dL (70-100) H 01/16/19 06:43 Glycated Hemoglobin 7.7 % (4.6-6.2) H 01/13/19 13:45 Estim Average Glucose 174 (70-100) H 01/13/19 13:45 Lactic Acid 1.8 mmol/L (0.5-2.2) 01/13/19 14:20 Calcium 8.7 mg/dL (8.5-10.3) 01/16/19 06:43 Magnesium 1.3 mg/dL (1.7-2.8) L 01/13/19 13:45 Iron 44 ug/dL (28-170) 01/16/19 09:20 TIBC 302 ug/dL (250-450) 01/16/19 09:20 % Saturation 15 % (20-50) L 01/16/19 09:20 Transferrin 216 mg/dL (192-382) 01/16/19 09:20 Ferritin 116.9 ng/mL (11.0-306.8) 01/13/19 13:45 Total Bilirubin 1.2 mg/dL (0.2-1.0) H 01/16/19 06:43 AST 124 IU/L (10-42) H 01/16/19 06:43 ALT 90 IU/L (10-60) H 01/16/19 06:43 Alkaline Phosphatase 231 IU/L (42-121) H 01/16/19 06:43 Total Protein 6.8 g/dL (6.7-8.2) 01/16/19 06:43 Albumin 2.3 g/dL (3.2-5.5) L 01/16/19 06:43 Globulin 4.5 g/dL (2.1-4.2) H 01/16/19 06:43 Albumin/Globulin Ratio 0.5 (1.0-2.2) L 01/16/19 06:43 Lipase 15 U/L (22-51) L 01/13/19 13:45 Vitamin B12 1756 pg/mL (180-914) H 01/16/19 09:20 Folate 16.74 ng/mL (5.90 - >24.8) 01/16/19 09:20 Urine Color DARK YELLOW 01/13/19 16:35 Urine Clarity HAZY (CLEAR) 01/13/19 16:35 Urine pH 6.0 PH (5.0-7.5) 01/13/19 16:35 Ur Specific [place] <=1.005 (1.002-1.030) 01/13/19 16:35 Urine Protein 100 mg/dL (NEGATIVE) H 01/13/19 16:35 Urine Glucose (UA) NEGATIVE mg/dL (NEGATIVE) 01/13/19 16:35 Urine Ketones NEGATIVE mg/dL (NEGATIVE) 01/13/19 16:35 Urine Occult Blood SMALL (NEGATIVE) H 01/13/19 16:35 Urine Nitrite POSITIVE (NEGATIVE) H 01/13/19 16:35 Urine Bilirubin NEGATIVE (NEGATIVE) 01/13/19 16:35 Urine Urobilinogen 1 (NORMAL) E.U./dL (NORMAL) 01/13/19 16:35 Ur Leukocyte Esterase TRACE (NEGATIVE) H 01/13/19 16:35 Urine RBC 0-5 /HPF (0-5) 01/13/19 16:35 Urine WBC 6-10 /HPF (0-5) H 01/13/19 16:35 Ur Squamous Epith Cells RARE Squamous (<= Few) 01/13/19 16:35 Amorphous Sediment Few /LPF 01/13/19 16:35 Urine Bacteria Few /HPF (None Seen) 01/13/19 16:35 Ur Microscopic Review INDICATED 01/13/19 16:35 Urine Culture Comments INDICATED 01/13/19 16:35 - Procedures Procedures: Procedures INSPECTION OF LOWER INTESTINAL TRACT, ENDO (11/23/15)
[2019-01-16] MEDS: ATORVASTATIN 40 MG TABLET PO SCH (21:13)
[2019-01-16] MEDS: ASPIRIN CHEW 81 MG TABLET PO SCH (21:13)
[2019-01-16] MEDS: CITALOPRAM HYDROBROMIDE 20 MG TABLET PO SCH (21:14)
[2019-01-16] MEDS: DULoxetine 30 MG CAPSULE PO SCH (21:15)
[2019-01-16] MEDS: FENOFIBRATE 48 MG TABLET PO SCH (21:16)
[2019-01-17] MEDS: oxyCODONE 5 MG TABLET PO PRN ×2 (00:35→17:42)
[2019-01-17] MEDS: SODIUM CHLORIDE FLUSH 0.9% 10 ML SYRINGE IVP SCH ×4 (00:42→16:37)
[2019-01-17 05:26] LABS: BASOPHILS % (AUTO) 0.5 %; EOSINOPHILS % (AUTO) 2.4 %; HGB - HEMOGLOBIN 7.9 g/dL (12.0-16.0); LYMPHOCYTES % (AUTO) 10.9 %; MEAN CORPUSCULAR HEMOGLOBIN 24.5 pg (27.0-31.0); MEAN CORPUSCULAR HGB CONC 31.1 g/dL (32.0-36.0); MEAN CORPUSCULAR VOLUME 78.9 fL (81.0-99.0); MEAN PLATELET VOLUME 9.3 fL (7.9-10.8); MONOCYTES % (AUTO) 6.2 %; PLT - PLATELET COUNT 439 10^3/uL (130-450); RED BLOOD COUNT 3.22 10^6/uL (4.20-5.40); RED CELL DISTRIBUTION WIDTH 15.8 % (12.0-15.0); WHITE BLOOD COUNT 23.7 x10^3/uL (4.8-10.8)
[2019-01-17 05:32] LABS: ABNORMAL LYMPHS % (MANUAL) 0 %
[2019-01-17 05:36] LABS: ALBUMIN 2.3 g/dL (3.2-5.5); ALBUMIN/GLOBULIN RATIO 0.5 (1.0-2.2); BILIRUBIN,TOTAL 1.2 mg/dL (0.2-1.0); CALCIUM 8.9 mg/dL (8.5-10.3); CREATININE 1.3 mg/dL (0.4-1.0); TOTAL PROTEIN 6.8 g/dL (6.7-8.2)
[2019-01-17 05:58] LABS: BAND NEUTROPHILS % (MANUAL) 14 %; EOSINOPHILS # (MANUAL) 0.5 10^3/uL (0-0.7); LYMPHOCYTES # (MANUAL) 5.2 10^3/uL (1.5-3.5); LYMPHOCYTES % (MANUAL) 22 %; METAMYELOCYTES % (MANUAL) 5 %; MONOCYTES # (MANUAL) 0.9 10^3/uL (0.0-1.0); MYELOCYTES % (MANUAL) 5 %; PLATELET ESTIMATE, MANUAL NORMAL (130-450,000) (NORMAL); RBC MORPHOLOGY (MULTIPLE) NORMAL APPEARANCE (NORMAL)
[2019-01-17 05:59] LABS: DIFFERENTIAL COMMENT MANUAL DIFFERENTIAL
[2019-01-17] MEDS: LEVOTHYROXINE 125 MCG TABLET PO SCH (06:08)
[2019-01-17] MEDS: PANTOPRAZOLE 40 MG TABLET PO SCH (06:08)
[2019-01-17] MEDS: SODIUM CHLORIDE 0.9% 1,000 ML IV SCH (08:11)
[2019-01-17] MEDS ORDERED: CIPROFLOXACIN 400 MG/200 ML 200 ML IV SCH (09:00)
[2019-01-17] MEDS: INSULIN ASPART 300 UNIT/3 ML PEN SUBQ SCH ×2 (09:03→11:35)
[2019-01-17] MEDS: DOCUSATE SODIUM 250 MG CAPSULE PO SCH (09:10)
[2019-01-17] MEDS: MULTIVITAMIN TABLET PO SCH (09:10)
[2019-01-17] MEDS: LOSARTAN 50 MG TABLET PO SCH (09:10)
[2019-01-17] MEDS: traMADol 50 MG TABLET PO SCH (09:10)
[2019-01-17] MEDS: SENNA 8.6 MG TABLET PO SCH (09:11)
[2019-01-17] MEDS: CYANOCOBALAMIN 500 MCG TABLET PO SCH (09:11)
[2019-01-17] MEDS: METOPROLOL TARTRATE 25 MG TABLET PO SCH (09:11)
[2019-01-17] MEDS ORDERED: IOVERSOL 320 50 ML VIAL ONE (09:14)
[2019-01-17] MEDS ORDERED: IOVERSOL 320 100 ML VIAL IVP ONE ×2 (09:14→13:01)
[2019-01-17] MEDS: ENOXAPARIN 40 MG/0.4 ML SYRINGE SUBQ SCH (09:14)
[2019-01-17] MEDS: POLYETHYLENE GLYCOL 3350 17 GM PACKET PO SCH (09:16)
[2019-01-17] MEDS: INSULIN NPH HUMAN 100 UNIT/1 ML 10 ML MDV SUBQ SCH (10:51)
[2019-01-17] MEDS ORDERED: MULTIVITAMIN W/MINERALS TABLET PO SCH (12:00)
--- NOTE | 2019-01-17 12:27 | CT Report ---
Reason: Rising WBC and LFTs and E coli UTI/bacteremia Procedure Date: 01/17/2019 Accession Number: [id number] / [id number] Procedure: CT - Abdomen/Pelvis W CPT Code: FULL RESULT: EXAM: CT ABDOMEN AND PELVIS EXAM DATE: 01/17/2019 11:00 AM. CLINICAL HISTORY: Rising WBC and LFTs and E coli UTI/bacteremia. COMPARISONS: ABDOMEN/PELVIS W/O 01/13/2019 3:42 PM. TECHNIQUE: Routine helical CT imaging was performed through the abdomen and pelvis. IV contrast: OPTI 320 68mL. Enteric contrast: Yes. Reconstructions: Coronal and sagittal. In accordance with CT protocol optimization, one or more of the following dose reduction techniques were utilized for this exam: automated exposure control, adjustment of mA and/or KV based on patient size, or use of iterative reconstructive technique. Please note that the contrast dosing and bolus are suboptimal, from a visualization standpoint the study is essentially noncontrast. FINDINGS: Lung Bases: Unchanged appearance including thin linear consolidation in the right lung, atelectasis versus scarring. Liver: Unremarkable. Gallbladder/Bile Ducts: Status post cholecystectomy. Spleen: Normal. Pancreas: Normal. Adrenal Glands: Normal. Kidneys: No hydronephrosis, no urinary calculi. Peritoneal Cavity/Bowel: There is no bowel obstruction. There is no free fluid or free air. The appendix is not definitely seen. Pelvic Organs: The bladder and visualized pelvic organs are within normal limits. Vasculature: No aneurysms or other significant abnormality. Bones: No significant abnormality. Other: None. IMPRESSION: No hydronephrosis or abscesses detected. RADIA
--- NOTE | 2019-01-17 13:22 | XRAY Report ---
Reason: Risng WBC, recent knee surgery Procedure Date: 01/17/2019 Accession Number: [id number] / [id number] Procedure: XR - Knee 2 View LT CPT Code: FULL RESULT: EXAM: LEFT KNEE RADIOGRAPHY EXAM DATE: 01/17/2019 10:55 AM. CLINICAL HISTORY: Rising WBC, recent knee surgery. COMPARISON: None available. TECHNIQUE: 2 views. FINDINGS: Total arthroplasty changes to the left knee. The bones are osteopenic. No acute fracture or dislocation. No destructive osseous lesions visualized to suggest osteomyelitis. There is a small/moderate joint effusion and prepatellar soft tissue swelling. Probable fabella in the popliteal fossa. Postsurgical clips projecting at the distal thigh. IMPRESSION: Total arthroplasty changes to the left knee. No acute osseous abnormalities visualized. Small/moderate left knee joint effusion and prepatellar soft tissue swelling. RADIA
[2019-01-17] MEDS ORDERED: metroNIDAZOLE 500 MG/100 ML 500 MG/100 ML BAG IV SCH (14:00)
--- NOTE | 2019-01-17 16:17 | Discharge Plan ---
Discharge Plan Problem Reviewed?: Yes Disposition: 02 Transfer Acute Care Hosp Condition: Stable No Smoking: If you smoke, Please STOP! Call for help. Follow-up with: Irma Waters MD [Primary Care Provider] -
--- NOTE | 2019-01-17 16:33 | DISCHARGE SUMMARY ---
Discharge Summary Admit Date: 01/13/19 Discharge Date: 01/17/19 Discharging Provider: Dr Shona Glover Primary Care Provider: Dr Irma Waters Code Status: Do Not Attempt Resuscitation Condition at Discharge: Serious Discharge Disposition: 02 Transfer Acute Care Hosp Discharge Facility Name: [facility] - DIAGNOSES Admission Diagnoses: (1) Acute pyelonephritis (2) XIOMARA (acute kidney injury) (3) Uncontrolled type 2 diabetes mellitus (4) Hypertension (5) Depression with anxiety (6) Anemia (7) Total knee replacement status, done 1 mo ago (8) Sleep apnea on CPAP (9) Morbid Obesity, BMI 40 Discharge Diagnoses with Status of Each Condition: See below - HPI History of Present Illness: From the admission H&P of Dr Janice Calvert: This is a morbidly obese 63 y/o white female who has multiple medical problems including coronary artery disease, cerebrovascular disease, and uncontrolled diabetes. She was seen in the emergency room on January 10. Found to have a UTI after complaining of low back ache and urinary incontinence with dysuria, a kidney stone was seen and she was sent home on Nitrofurantoin. She has been unable to tolerate the medication because of nausea and vomiting. She has continued to have aches and fevers and chills. Her abdominal pain that was present with was getting worse and she returned to our emergency room. Temperature was 38.5. Blood pressure, pulse, was normal. Mildly hypoxemic at 92% on room air. She is mildly hyponatremic at 128. Lactic Acid was normal. She had acute kidney insufficiency in that her creatinine is usually 0.6-0.8, was 1.8. White cell count is elevated at 14,000. She is now admitted for probable pyelonephritis that has failed outpatient therapy. Her urinalysis and culture from Jan 10, shows her to have grown E. coli. She is allergic to penicillin and Bactrim. The E. coli is sensitive to Levaquin, and cephalosporins. - CONSULTS | PROCEDURES Consultations: Discussion with ID Fellow on the [employer] line at on 01/16/19. - HOSPITAL COURSE Hospital Course: (1) E coli bacteremia The blood cultures turned positive for GNRod by 12 hours, and were IDd as Ecoli with the same sensitivities as the 01/10/19 ER urine cultured E coli. She had a fever for the next 2 days, but follow-up blood cultures were neg. She was on iv Rocephin for 4 days, which the E coli was sensitive to, however on the day of transfer, antibiotics were broadened to Cipro and Flagyl and Rocephin was stopped (see #3). (2) UTI (urinary tract infection) Her treatment with Nitrofurantoin, was not tolerated as an outpatient and did not result in symptom improvement the prior week, therefore she came to the ER. The urine Cx from [facility] admission had grown E coli, therefore her antibiotic was changed and she initially felt better on iv Rocephin. The CT abdomen done at admission, did not show perinephric stranding of pyelonephritis, or any stones. The newest urine culture, from 01/13/19, grew Beta Hemolytic Strep, which the ID Fellow felt was unremarkable (see #3). (3) Elevated WBC count After improving from 14 to 13, the WBC count started to rise with a higher L shift and Bandemia daily (WBC 17.5>> 19>> 24) (Bands 0>> 11>> 12 on 01/16>> 14 on 01/17) I called the ID Fellow at on 01/16/19, and discussed the case. She advised continuing iv Rocephin and getting repeat abdomen CT imaging with contrast, and if no obvious source was found, then the patient would need transfer to a facility with higher level of care and with ID consultants. On 01/17/19, the abdomen CT with iv and oral contrast was normal. A 2-view XRay of the L knee on 01/17/19 showed mild-moderate fluid. The Rocephin was stopped and antibiotic coverage broadened as above. On 01/17/19, she remembered and reported that she had had a mammogram that showed implants and "spots" and a cyst in the R chest, which was sonogrammed and was called a lymph node, not a cyst. On 01/17/19, she was accepted in transfer to [facility] for further evaluation and management with ID consultation, and was transferred there in guarded but stable condition by S ambulance. (4) Elevated LFTs She had essentially normal LFTs at admission which began to rise (AST 63>> 124>> 182; ALT 54>> 90>> 121; bili 1.1>> 1.2) The ID Fellow at thought that the Macrodantin could have caused liver toxicity. Macrodantin was listed as an allergy that caused transaminitis. In addition, the increase could have been from passive liver congestion due to iv hydration for 2 days. A CXR done 01/16/19 suggested mild volume overload, the iv rate was decreased to KVO. A RUQ ultrasound done 01/16/19, showed no duct dilation and no GB present. The CT of abdomen on 01/17/19 was unremarkable. (5) XIOMARA (acute kidney injury) Since she did not have urinary tract obstruction, but had poor p.o. intake due to nausea, XIOMARA was likely due to dehydration. She had worsening creat from 1.8 to 2.1 on day #2, which was managed with s tarting iv saline at 80 cc/hr which resulted in daily improvement in crreat down to 1.3 on the day of transfer. Metformin was on hold the entire admission. (6) DM type 2 (diabetes mellitus, type 2) Her A1c was 7.7 indicating fair-poor control, possibly partly from this inf ection. Humulin Insulin and Glipizide were continued, but Metformin was on hold, and she was on ss Insulin coverage and a carb-controlled diet. (7) Hyponatremia Possibly low from elevated glucose or poor po intake from N/V. Gentle IV hydration with NS resulted in slow improvement to Na 137 at transfer. (8) Hypomagnesemia Similar to the low serum sodium, Mg of 1.3 was corrected and monitored. (9) Hypothyroidism We continue her home thyroid replacement dose. (10) Hypertension We continued her home BP meds. (11) Depression with anxiety Continued her home dose of Duloxetine. (10) Hx of coronary artery disease SOB occurred on 01/16/19 and a CXR showed mild vascular overload. We continued iv fluids for XIOMARA but decreased the iv rate to TKO. She was continued on Lipitor and Tricor as at home. (11) EDUARDO on CPAP Continued her home CPAP device while here. (12) Anemia Hgb was 8.6 at admission and dropped to as low as 7.9. She had adequate B12 and Folate levels, low Iron stores (Iron level 10, % saturation 3). Consider beginning iron supplements. - ALLERGIES Allergies/Adverse Reactions: Allergies Allergy/AdvReac Type Severity Reaction Status Date / Time nitrofurantoin Allergy Severe Unknown Verified 01/16/19 19:23 [From Macrodantin] azithromycin Allergy Edema Verified 01/13/19 12:59 [From Zithromax Z-Robin] Penicillins Allergy Anaphylaxis Verified 01/13/19 12:59 vancomycin Allergy Edema Verified 01/13/19 12:59 erythromycin base AdvReac Emesis Verified 01/13/19 12:59 sulfacetamide sodium * AdvReac Unknown Verified 01/13/19 12:59 [From Sulfamide] - MEDICATIONS Home Medications: Ambulatory Orders Medication Instructions Recorded Confirmed traMADol [Ultram] 50 mg PO DAILY 11/22/15 01/14/19 Alprazolam 0.5 mg PO QPM PRN 10/30/16 01/14/19 Atorvastatin Calcium 40 mg PO QPM 10/30/16 01/14/19 Metformin HCl 1,000 mg PO BIDWM 10/30/16 01/14/19 Multivitamin [Multivitamins] 1 tab PO DAILY 10/30/16 01/14/19 Pantoprazole [Protonix] 40 mg PO QPM 10/30/16 01/14/19 Aspirin Chewable [St Ciro 162 mg PO QPM 04/08/17 01/14/19 Aspirin] Duloxetine HCl 60 mg PO QPM 04/09/17 01/14/19 Losartan [Cozaar] 25 mg PO DAILY tablet 04/09/17 01/14/19 Citalopram Hydrobromide 40 mg PO QPM 12/09/17 01/14/19 [Citalopram HBr] Fenofibrate Nanocrystallized 145 mg PO QPM 12/09/17 01/14/19 [Fenofibrate] Cyanocobalamin (Vitamin B-12) 1,000 mcg PO DAILY 03/03/18 01/14/19 [Vitamin B-12] Nitrofurantoin Monohyd/M-Cryst 100 mg PO BID #10 capsule 01/10/19 01/14/19 [Macrobid 100 mg Capsule] Insulin NPH Human Isophane 70 unit SQ BID 01/14/19 01/14/19 [Humulin N] Levothyroxine [Synthroid] 250 mcg PO QDAC 01/14/19 01/14/19 Metoprolol Tartrate [Lopressor] 25 mg PO BID 01/14/19 01/14/19 glipiZIDE ER [Glucotrol Xl] 2.5 mg PO BID 01/14/19 01/14/19 - PHYSICAL EXAM AT DISCHARGE General Appearance: positive: No acute distress, Alert Eyes Bilateral: positive: Normal inspection ENT: positive: Other (Flushed cheeks) Neck: positive: Nml inspection, No JVD Respiratory: positive: Chest non-tender, No respiratory distress, Breath sounds nml Cardiovascular: positive: Regular rate & rhythm, No murmur Peripheral Pulses: positive: 2+ Abdomen: positive: Other (Obese with pannus, normal bowel sounds, no tenderness, guarding or rebound) Back: positive: Nml inspection, CVA tenderness (L) Skin: positive: Color nml Extremities: positive: Non-tender, Other (L knee has recent scar, is clean, not red or warm. L ankle has 1+ edema.) Neurologic/Psychiatric: positive: Oriented x3, Other (Non-focal.) - LABS Result Diagrams: 01/17/19 04:50 01/17/19 04:50 - DIAGNOSTIC IMAGING Diagnostic Imaging Results: Final report reviewed - FOLLOW UP Follow Up: This will be determined after her hospitalization at [facility] - TIME SPENT Time Spent in Discharge (Minutes): 90
[2019-01-17] MEDS: ACETAMINOPHEN 325 MG TABLET PO PRN (16:38)
[2019-01-17 17:43] VITALS: BP 149/62
== END 2019-01-17 17:45 | disposition short-term general hospital (02) | DRG 872 ==
LOC: EDBD → ED 12:54 → MS2 17:08
PROVIDERS: ADMIT Specialist; ATTEND Internal Medicine
DX: R78.81 Bacteremia (principal); N39.0 Urinary tract infection, site not specified; E87.1 Hypo-osmolality and hyponatremia; N17.9 Acute kidney failure, unspecified; Z68.41 Body mass index [BMI] 40.0-44.9, adult; D62 Acute posthemorrhagic anemia; B96.20 Unspecified Escherichia coli [E. coli] as the cause of diseases classified elsewhere; E11.65 Type 2 diabetes mellitus with hyperglycemia; E11.42 Type 2 diabetes mellitus with diabetic polyneuropathy; E86.0 Dehydration; E83.42 Hypomagnesemia; R74.0 Nonspecific elevation of levels of transaminase and lactic acid dehydrogenase [LDH]; E03.9 Hypothyroidism, unspecified; I10 Essential (primary) hypertension; G47.33 Obstructive sleep apnea (adult) (pediatric); T37.8X5A Adverse effect of other specified systemic anti-infectives and antiparasitics, initial encounter; Y92.231 Patient bathroom in hospital as the place of occurrence of the external cause; F41.8 Other specified anxiety disorders; F31.9 Bipolar disorder, unspecified; F41.0 Panic disorder [episodic paroxysmal anxiety]; F40.240 Claustrophobia; E66.01 Morbid (severe) obesity due to excess calories; M25.462 Effusion, left knee; E78.00 Pure hypercholesterolemia, unspecified; G40.909 Epilepsy, unspecified, not intractable, without status epilepticus; I25.10 Atherosclerotic heart disease of native coronary artery without angina pectoris; G43.909 Migraine, unspecified, not intractable, without status migrainosus; K21.9 Gastro-esophageal reflux disease without esophagitis; G89.29 Other chronic pain; M54.9 Dorsalgia, unspecified; M19.90 Unspecified osteoarthritis, unspecified site; R32 Unspecified urinary incontinence; H54.7 Unspecified visual loss; J32.9 Chronic sinusitis, unspecified; K44.9 Diaphragmatic hernia without obstruction or gangrene; Z96.652 Presence of left artificial knee joint; Z79.84 Long term (current) use of oral hypoglycemic drugs; Z79.82 Long term (current) use of aspirin; Z85.3 Personal history of malignant neoplasm of breast; Z95.5 Presence of coronary angioplasty implant and graft; Z95.1 Presence of aortocoronary bypass graft; Z86.73 Personal history of transient ischemic attack (TIA), and cerebral infarction without residual deficits; I25.2 Old myocardial infarction; Z87.891 Personal history of nicotine dependence; Z90.49 Acquired absence of other specified parts of digestive tract; Z90.10 Acquired absence of unspecified breast and nipple; Z98.82 Breast implant status
CPT/HCPCS: 36415; 51701; 71045; 73560; 74176; 74177; 76705; 80048; 80053; 81001; 82607; 82728; 82746; 83036; 83540; 83605; 83690; 83735; 84466; 85025; 85044; 87040; 87077; 87086; 87181; 96361; 96365; 96375; 96376; 97116; 97161; 99284; 99285; A9270; J1650; J1815; J8499; Q9967; 81003

== ENCOUNTER 2019-01-29 08:00 | Outpatient (CLI) | payer BC, MEDICARE ==
[2019-01-29 14:54] LABS: BASOPHILS # (AUTO) 0.1 10^3/uL (0.0-0.1); BASOPHILS % (AUTO) 1.1 %; EOSINOPHILS # (AUTO) 0.2 10^3/uL (0.0-0.7); EOSINOPHILS % (AUTO) 3.6 %; HGB - HEMOGLOBIN 8.6 g/dL (12.0-16.0); LYMPHOCYTES # (AUTO) 1.7 10^3/uL (1.5-3.5); LYMPHOCYTES % (AUTO) 26.7 %; MEAN CORPUSCULAR HEMOGLOBIN 25.1 pg (27.0-31.0); MEAN CORPUSCULAR HGB CONC 29.6 g/dL (32.0-36.0); MEAN CORPUSCULAR VOLUME 85.1 fL (81.0-99.0); MONOCYTES # (AUTO) 0.6 10^3/uL (0.0-1.0); MONOCYTES % (AUTO) 9.7 %; NEUTROPHILS # (AUTO) 3.7 10^3/uL (1.5-6.6); NEUTROPHILS % (AUTO) 57.5 %; PLT - PLATELET COUNT 494 10^3/uL (130-450); RED BLOOD COUNT 3.42 10^6/uL (4.20-5.40); RED CELL DISTRIBUTION WIDTH 17.5 % (12.0-15.0); WHITE BLOOD COUNT 6.4 x10^3/uL (4.8-10.8)
[2019-01-29 15:00] LABS: ALBUMIN 3.5 g/dL (3.2-5.5); ALBUMIN/GLOBULIN RATIO 0.9 (1.0-2.2); BILIRUBIN,TOTAL 0.3 mg/dL (0.2-1.0); CALCIUM 9.4 mg/dL (8.5-10.3); CREATININE 1.1 mg/dL (0.4-1.0); TOTAL PROTEIN 7.6 g/dL (6.7-8.2)
== END 2019-01-29 23:59 | disposition home or self-care (01) ==
LOC: LAB.R 08:00
PROVIDERS: ATTEND Internal Medicine Infectious Disease
DX: R78.81 Bacteremia (principal)
CPT/HCPCS: 80053; 85025

== ENCOUNTER 2019-10-11 21:42 | Emergency (ER) | payer BC, MEDICARE, OTHER ==
--- NOTE | 2019-10-11 22:09 | ED Physician Documentation ---
History of Present Illness - Stated complaint Stated Complaint: VOMIT/LOW TORSO PX - Chief complaint Chief Complaint: Abd Pain - History obtained from History obtained from: Patient (Patient is a 64-year-old female insulin- dependent diabetic presents with vomiting for 1 day unable to keep any food down now with bilateral lower back cramping without dysuria or hematuria. Reports she is unable to keep anything down.She denies chest pain or fevers or dysuria.Denies abdominal pain) Review of Systems Constitutional: reports: Reviewed and negative Eyes: reports: Reviewed and negative Ears: reports: Reviewed and negative Nose: reports: Reviewed and negative Throat: reports: Reviewed and negative Cardiac: reports: Reviewed and negative Respiratory: reports: Reviewed and negative GI: reports: Nausea, Vomiting : reports: Reviewed and negative Skin: reports: Reviewed and negative Musculoskeletal: reports: Reviewed and negative Neurologic: reports: Reviewed and negative Psychiatric: reports: Reviewed and negative Endocrine: reports: Reviewed and negative Immunocompromised: reports: Reviewed and negative PD PAST MEDICAL HISTORY - Past Medical History Past Medical History: Yes Cardiovascular: Hypertension, High cholesterol, Coronary artery disease, [place], Other Respiratory: Sleep apnea, CPAP use, Other Neuro: TIA, Headaches, Migraines, Peripheral neuropathy, Seizure disorder Endocrine/Autoimmune: Type 2 diabetes, HyPOthyroidism GI: GERD, Hiatal hernia, Colon polyps, Hemorrhoids, Other COMMUNICATIONS INTERN: Breast cancer, Other : Incontinence HEENT: Chronic vision loss, Chronic sinusitis Psych: Depression, Anxiety, Bipolar disorder, Panic attacks, Claustrophobia Musculoskeletal: Osteoarthritis, Chronic back pain Derm: None - Past Surgical History Past Surgical History: Yes General: Cholecystectomy, Appendectomy, Colonoscopy, Other Ortho: Carpal Tunnel surgery, Other /COMMUNICATIONS INTERN: Tubal ligation, Hysterectomy, Mastectomy, Breast implants Cardiovascular: CABG, Coronary stent, Cardiac catheterization, Angioplasty, Other HEENT: Cataracts, Tonsil/Adenoidectomy - Present Medications Home Medications: Ambulatory Orders Medication Instructions Recorded Confirmed Alprazolam 0.5 mg PO QPM PRN 10/30/16 01/24/19 Atorvastatin Calcium 40 mg PO QPM 10/30/16 01/24/19 Metformin HCl 1,000 mg PO BIDWM 10/30/16 01/24/19 Multivitamin [Multivitamins] 1 tab PO DAILY 10/30/16 01/24/19 Pantoprazole [Protonix] 40 mg PO DAILY 10/30/16 01/24/19 Aspirin Chewable [St Ciro 162 mg PO QPM 04/08/17 01/24/19 Aspirin] Duloxetine HCl 60 mg PO QPM 04/09/17 01/24/19 Citalopram Hydrobromide 40 mg PO QPM 12/09/17 01/24/19 [Citalopram HBr] Insulin NPH Human Isophane 70 unit SQ BID 01/14/19 01/24/19 [Humulin N] Levothyroxine [Synthroid] 250 mcg PO QDAC 01/14/19 01/24/19 Metoprolol Tartrate [Lopressor] 25 mg PO BID 01/14/19 01/24/19 glipiZIDE ER [Glucotrol Xl] 2.5 mg PO DAILY 01/14/19 01/24/19 Lactobacillus Acidophilus 1 each PO DAILY 01/24/19 01/24/19 [Probiotic Acidophilus] Vitamin B Complex 1 tab PO DAILY 01/24/19 01/24/19 Ondansetron Odt [Zofran Odt] 4 mg TL Q6H PRN #10 tablet 10/12/19 - Allergies Allergies/Adverse Reactions: Allergies Allergy/AdvReac Type Severity Reaction Status Date / Time nitrofurantoin Allergy Severe Unknown Verified 10/11/19 21:46 [From Macrodantin] azithromycin Allergy Edema Verified 10/11/19 21:46 [From Zithromax Z-Robin] Penicillins Allergy Anaphylaxis Verified 10/11/19 21:46 vancomycin Allergy Edema Verified 10/11/19 21:46 erythromycin base AdvReac Emesis Verified 10/11/19 21:46 sulfacetamide sodium * AdvReac Unknown Verified 10/11/19 21:46 [From Sulfamide] - Social History Does the pt smoke?: No Smoking Status: Never smoker Does the pt drink ETOH?: Yes Does the pt have substance abuse?: Yes Substance Use and Type: Marijuana - Immunizations Immunizations are current?: Yes - POLST Patient has POLST: No POLST Status: DNR PD ED PE NORMAL - Vitals Vital signs reviewed: Yes - General General: Alert and oriented X 3, No acute distress, Well developed/nourished - HEENT HEENT: Atraumatic, PERRL, Ears normal - Neck Neck: Supple, no meningeal sign, No adenopathy, No JVD, No bruit - Cardiac Cardiac: RRR, No murmur, Strong equal pulses - Respiratory Respiratory: No respiratory distress, Clear bilaterally - Abdomen Abdomen: Normal bowel sounds, Soft, Non tender, Non distended, No organomegaly, Other (Obese, no midline abdominal pulsatile mass) - Back Back: No CVA TTP, No spinal TTP - Derm Derm: Normal color, Warm and dry, No rash - Extremities Extremities: No deformity, No tenderness to palpate, Normal ROM s pain, No edema, No calf tenderness / cord - Neuro Neuro: Alert and oriented X 3, 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, No motor deficit, No sensory deficit, Normal speech - Psych Psych: Normal mood, Normal affect Results - Vitals Vitals: Vital Signs - 24 hr 10/11/19 10/11/19 10/11/19 21:46 22:46 23:21 Temperature 36.5 C Heart Rate 58 L 69 70 Respiratory 14 18 18 Rate Blood Pressure 180/68 H 173/85 H 153/66 H O2 Saturation 97 98 98 10/12/19 10/12/19 00:29 00:31 Temperature Heart Rate 73 67 Respiratory 18 18 Rate Blood Pressure 163/76 H 147/69 H O2 Saturation 96 96 Oxygen O2 Source Room air - EKG (time done) 22:27 Rate: Other (no stemi) Compare to prior EKG: Unchanged from prior EKG - Labs Labs: Laboratory Tests 10/11/19 10/11/19 10/11/19 22:30 22:30 22:30 WBC 14.7 H RBC 4.85 Hgb 13.0 Hct 40.6 MCV 83.7 MCH 26.8 L MCHC 32.0 RDW 12.9 Plt Count 361 MPV 9.6 Neut # (Auto) 11.6 H Lymph # (Auto) 1.7 [place] # (Auto) 0.9 Eos # (Auto) 0.3 Baso # (Auto) 0.1 Absolute Nucleated RBC 0.00 Nucleated RBC % 0.0 PT 12.4 INR 1.1 APTT 32.1 VBG pH VBG pCO2 VBG pO2 VBG HCO3 VBG Total CO2 VBG O2 Saturation VBG Base Excess Sodium 132 L Potassium 4.5 Chloride 95 L Carbon Dioxide 21 Anion Gap 16.0 H BUN 24 H Creatinine 1.3 H Estimated GFR (MDRD) 42 L Glucose 348 H Lactic Acid Calcium 9.4 Magnesium 1.7 Total Bilirubin 0.7 AST 38 ALT 45 Alkaline Phosphatase 84 Total Creatine Kinase 160 Troponin I High Sens B-Natriuretic Peptide Total Protein 8.2 Albumin 4.8 Globulin 3.4 Albumin/Globulin Ratio 1.4 Lipase 40 Urine Color Urine Clarity Urine pH Ur Specific [place] Urine Protein Urine Glucose (UA) Urine Ketones Urine Occult Blood Urine Nitrite Urine Bilirubin Urine Urobilinogen Ur Leukocyte Esterase Urine RBC Urine WBC Ur Squamous Epith Cells Urine Bacteria Ur Microscopic Review Urine Culture Comments Ethyl Alcohol < 5.0 Serum Ketones NEGATIVE 10/11/19 10/11/19 10/11/19 22:30 22:30 22:30 WBC RBC Hgb Hct MCV MCH MCHC RDW Plt Count MPV Neut # (Auto) Lymph # (Auto) [place] # (Auto) Eos # (Auto) Baso # (Auto) Absolute Nucleated RBC Nucleated RBC % PT INR APTT VBG pH 7.349 VBG pCO2 36.3 L VBG pO2 48.0 H VBG HCO3 19.5 L VBG Total CO2 20.7 L VBG O2 Saturation 82.7 H VBG Base Excess -5.4 L Sodium Potassium Chloride Carbon Dioxide Anion Gap BUN Creatinine Estimated GFR (MDRD) Glucose Lactic Acid 2.6 H Calcium Magnesium Total Bilirubin AST ALT Alkaline Phosphatase Total Creatine Kinase Troponin I High Sens B-Natriuretic Peptide 68 Total Protein Albumin Globulin Albumin/Globulin Ratio Lipase Urine Color Urine Clarity Urine pH Ur Specific [place] Urine Protein Urine Glucose (UA) Urine Ketones Urine Occult Blood Urine Nitrite Urine Bilirubin Urine Urobilinogen Ur Leukocyte Esterase Urine RBC Urine WBC Ur Squamous Epith Cells Urine Bacteria Ur Microscopic Review Urine Culture Comments Ethyl Alcohol Serum Ketones 10/11/19 10/11/19 22:30 22:40 WBC RBC Hgb Hct MCV MCH MCHC RDW Plt Count MPV Neut # (Auto) Lymph # (Auto) [place] # (Auto) Eos # (Auto) Baso # (Auto) Absolute Nucleated RBC Nucleated RBC % PT INR APTT VBG pH VBG pCO2 VBG pO2 VBG HCO3 VBG Total CO2 VBG O2 Saturation VBG Base Excess Sodium Potassium Chloride Carbon Dioxide Anion Gap BUN Creatinine Estimated GFR (MDRD) Glucose Lactic Acid Calcium Magnesium Total Bilirubin AST ALT Alkaline Phosphatase Total Creatine Kinase Troponin I High Sens 9.2 B-Natriuretic Peptide Total Protein Albumin Globulin Albumin/Globulin Ratio Lipase Urine Color LT. YELLOW Urine Clarity CLEAR Urine pH 6.5 Ur Specific [place] 1.015 Urine Protein 30 H Urine Glucose (UA) >=1000 H Urine Ketones NEGATIVE Urine Occult Blood TRACE-INTA Urine Nitrite NEGATIVE Urine Bilirubin NEGATIVE Urine Urobilinogen 0.2 (NORMAL) Ur Leukocyte Esterase NEGATIVE Urine RBC 0-5 Urine WBC 0-3 Ur Squamous Epith Cells RARE Squamous Urine Bacteria None Seen Ur Microscopic Review INDICATED Urine Culture Comments NOT INDICATED Ethyl Alcohol Serum Ketones PD MEDICAL DECISION MAKING - ED course Complexity details: reviewed results, re-evaluated patient (Tolerated p.o. challenge, pain-free.), considered differential (Dehydration, hypoglycemia, hyperosmolar nonketotic state, diabetic ketoacidosis, acute kidney injury, ACS), d/w patient, d/w family Departure - Departure Disposition: Home, Self Care Clinical Impression: Hyperglycemia, Insulin dependent diabetes mellitus, Hyponatremia, Dehydration Vomiting Qualifiers: Vomiting type: unspecified Vomiting Intractability: unspecified Nausea presence: unspecified Qualified Code(s): R11.10 - Vomiting, unspecified Condition: Stable Instructions: ED Nausea Vomiting Follow-Up: Irma Waters MD [Primary Care Provider] - Tomorrow Prescriptions: Ondansetron Odt [Zofran Odt] 4 mg TL Q6H PRN #10 tablet PRN Reason: Nausea / Vomiting Comments: Follow-up with your primary care provider on Sunday. Take Zofran as needed for nausea or vomiting. Hydrate well. Discharge Date/Time: 10/12/19 00:47
[2019-10-11] MEDS ORDERED: ONDANSETRON 4 MG/2 ML VIAL IVP STA (22:19)
[2019-10-11] MEDS ORDERED: SODIUM CHLORIDE 0.9% 1,000 ML IV STA ×2 (22:19→23:41)
[2019-10-11] MEDS ORDERED: MORPHINE 2 MG/ML CARPUJECT IVP STA (22:19)
[2019-10-11 22:37] LABS: BASOPHILS # (AUTO) 0.1 10^3/uL (0.0-0.1); BASOPHILS % (AUTO) 0.5 %; EOSINOPHILS # (AUTO) 0.3 10^3/uL (0.0-0.7); EOSINOPHILS % (AUTO) 1.8 %; LYMPHOCYTES # (AUTO) 1.7 10^3/uL (1.5-3.5); LYMPHOCYTES % (AUTO) 11.3 %; MEAN CORPUSCULAR HEMOGLOBIN 26.8 pg (27.0-31.0); MEAN CORPUSCULAR VOLUME 83.7 fL (81.0-99.0); MEAN PLATELET VOLUME 9.6 fL (7.9-10.8); MONOCYTES # (AUTO) 0.9 10^3/uL (0.0-1.0); NEUTROPHILS # (AUTO) 11.6 10^3/uL (1.5-6.6); NEUTROPHILS % (AUTO) 79.2 %; PLT - PLATELET COUNT 361 10^3/uL (130-450); RED BLOOD COUNT 4.85 10^6/uL (4.20-5.40); RED CELL DISTRIBUTION WIDTH 12.9 % (12.0-15.0); WHITE BLOOD COUNT 14.7 x10^3/uL (4.8-10.8)
[2019-10-11 22:44] LABS: KETONES, SERUM (ACETEST) NEGATIVE (NEGATIVE)
[2019-10-11 22:45] LABS: VBG BASE EXCESS -5.4 mmol/L (-2 - +2); VBG PCO2 36.3 mmHg (41-51); VBG PH 7.349 (7.31-7.41); VBG TOTAL CO2 20.7 mmol/L (24-29)
[2019-10-11 22:48] LABS: INR 1.1 (0.8-1.2); PT - PROTHROMBIN TIME 12.4 secs (9.9-12.6)
[2019-10-11 22:52] LABS: ALBUMIN 4.8 g/dL (3.2-5.5); ALBUMIN/GLOBULIN RATIO 1.4 (1.0-2.2); ALKALINE PHOSPHATASE 84 IU/L (42-121); ALT ALANINE AMINOTRANSFERASE 45 IU/L (10-60); AST ASPARTATE AMINOTRANSFERASE 38 IU/L (10-42); BILIRUBIN,TOTAL 0.7 mg/dL (0.2-1.0); BUN - BLOOD UREA NITROGEN 24 mg/dL (6-20); CALCIUM 9.4 mg/dL (8.5-10.3); CARBON DIOXIDE - CO2 21 mmol/L (21-32); CHLORIDE 95 mmol/L (101-111); CK- CREATINE KINASE 160 IU/L (22-269); CREATININE 1.3 mg/dL (0.4-1.0); GLUCOSE 348 mg/dL (70-100); LIPASE 40 U/L (22-51); MAGNESIUM 1.7 mg/dL (1.7-2.8); SODIUM 132 mmol/L (135-145); TOTAL PROTEIN 8.2 g/dL (6.7-8.2)
[2019-10-11 22:55] LABS: PARTIAL THROMBOPLASTIN TIME 32.1 secs (24.9-33.3)
[2019-10-11 22:58] LABS: BILIRUBIN,URINE NEGATIVE (NEGATIVE); GLUCOSE, URINE (UA) >=1000 mg/dL (NEGATIVE); KETONES,URINE (UA) NEGATIVE (NEGATIVE); LEUKOCYTE ESTERASE, URINE NEGATIVE (NEGATIVE); NITRITE,URINE NEGATIVE (NEGATIVE); OCCULT BLOOD,URINE TRACE-INTA (NEGATIVE); PH,URINE 6.5 PH (5.0-7.5); PROTEIN,URINE 30 mg/dL (NEGATIVE); UROBILINOGEN,URINE 0.2 (NORMAL) E.U./dL (NORMAL)
[2019-10-11 23:05] LABS: CLARITY,URINE CLEAR (CLEAR)
[2019-10-11 23:14] LABS: BACTERIA,URINE None Seen /HPF (None Seen); RBC,URINE 0-5 /HPF (0-5); SQUAMOUS EPITHELIAL CELL,UR RARE Squamous (<= Few)
[2019-10-12] MEDS ORDERED: ONDANSETRON 4 MG/2 ML VIAL IVP STA (00:18)
[2019-10-12 00:31] VITALS: BP 147/69
--- NOTE | 2019-10-12 08:19 | XRAY Report ---
PROCEDURE: Chest 1 View X-Ray INDICATIONS: cp TECHNIQUE: One view of the chest was acquired. COMPARISON: Chest x-ray 01/16/2019. FINDINGS: Surgical changes and devices: Sternotomy and CABG. The most superior sternal wire is fractured but st able in appearance. Multiple surgical clips are seen in the right axilla. Lungs and pleura: No pleural effusions or pneumothorax. Lungs are clear. Mediastinum: Mediastinal contours appear normal. Heart size is normal. Bones and chest wall: No suspicious bony lesions. Overlying soft tissues appear unremarkable. IMPRESSION: No acute cardiopulmonary disease. Reviewed by: Bonny Castellano MD on 10/12/2019 8:18 AM PDT Approved by: Bonny Castellano MD on 10/12/2019 8:18 AM PDT Station ID: [id number]
== END 2019-10-12 00:47 | disposition home or self-care (01) ==
LOC: ED 21:42
DX: R11.10 Vomiting, unspecified (principal); E11.65 Type 2 diabetes mellitus with hyperglycemia; E11.42 Type 2 diabetes mellitus with diabetic polyneuropathy; Z79.4 Long term (current) use of insulin; E87.1 Hypo-osmolality and hyponatremia; E86.0 Dehydration; I45.10 Unspecified right bundle-branch block; Z95.1 Presence of aortocoronary bypass graft; I25.10 Atherosclerotic heart disease of native coronary artery without angina pectoris; I25.2 Old myocardial infarction; I10 Essential (primary) hypertension; Z79.82 Long term (current) use of aspirin; Z66 Do not resuscitate
CPT/HCPCS: 36415; 71045; 80053; 80320; 81001; 81003; 82009; 82550; 82803; 83605; 83690; 83735; 83880; 84484; 85025; 85610; 85730; 87086; 93005; 96361; 96374; 96375; 99284

== ENCOUNTER 2019-10-13 13:36 | Emergency (ER) | payer BC, MEDICARE, OTHER ==
[2019-10-13 13:57] LABS: BASOPHILS # (AUTO) 0.1 10^3/uL (0.0-0.1); BASOPHILS % (AUTO) 0.4 %; EOSINOPHILS # (AUTO) 0.1 10^3/uL (0.0-0.7); EOSINOPHILS % (AUTO) 0.7 %; HGB - HEMOGLOBIN 11.9 g/dL (12.0-16.0); LYMPHOCYTES % (AUTO) 7.4 %; MEAN CORPUSCULAR HEMOGLOBIN 28.1 pg (27.0-31.0); MEAN CORPUSCULAR HGB CONC 33.2 g/dL (32.0-36.0); MEAN CORPUSCULAR VOLUME 84.6 fL (81.0-99.0); MEAN PLATELET VOLUME 9.2 fL (7.9-10.8); MONOCYTES # (AUTO) 1.2 10^3/uL (0.0-1.0); MONOCYTES % (AUTO) 8.8 %; NEUTROPHILS % (AUTO) 81.8 %; PLT - PLATELET COUNT 295 10^3/uL (130-450); RED BLOOD COUNT 4.23 10^6/uL (4.20-5.40); WHITE BLOOD COUNT 13.5 x10^3/uL (4.8-10.8)
[2019-10-13 14:12] LABS: ALBUMIN 4.2 g/dL (3.2-5.5); ALBUMIN/GLOBULIN RATIO 1.1 (1.0-2.2); BILIRUBIN,TOTAL 1.1 mg/dL (0.2-1.0); CALCIUM 9.2 mg/dL (8.5-10.3); CREATININE 1.9 mg/dL (0.4-1.0); TOTAL PROTEIN 7.9 g/dL (6.7-8.2)
[2019-10-13] MEDS ORDERED: ONDANSETRON 4 MG/2 ML VIAL IVP STA (15:05)
[2019-10-13] MEDS ORDERED: MORPHINE 2 MG/ML CARPUJECT IVP STA (15:05)
--- NOTE | 2019-10-13 15:07 | ED Physician Documentation ---
PD HPI ABD PAIN - Stated complaint Stated Complaint: ABD PX/MARTEL/NAUSEA - Chief complaint Chief Complaint: Abd Pain - History obtained from History obtained from: Patient - History of Present Illness Timing - onset: Other (64-year-old woman with history of diabetes has had left flank pain constant for the last 2 days associated with nausea and vomiting. It is severe. No history of kidney stone. No urinary complaints. 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: Breast cancer, Other : Incontinence HEENT: Chronic vision loss, Chronic sinusitis Psych: Depression, Anxiety, Bipolar disorder, Panic attacks, Claustrophobia Musculoskeletal: Osteoarthritis, Chronic back pain Derm: None - Past Surgical History Past Surgical History: Yes General: Cholecystectomy, Appendectomy, Colonoscopy, Other Ortho: Carpal Tunnel surgery, Other /ITALIAN TEACHER: Tubal ligation, Hysterectomy, Mastectomy, Breast implants Cardiovascular: CABG, Coronary stent, Cardiac catheterization, Angioplasty, Other HEENT: Cataracts, Tonsil/Adenoidectomy - Present Medications Home Medications: Ambulatory Orders Medication Instructions Recorded Confirmed Alprazolam 0.5 mg PO QPM PRN 10/30/16 01/24/19 Atorvastatin Calcium 40 mg PO QPM 10/30/16 01/24/19 Metformin HCl 1,000 mg PO BIDWM 10/30/16 01/24/19 Multivitamin [Multivitamins] 1 tab PO DAILY 10/30/16 01/24/19 Pantoprazole [Protonix] 40 mg PO DAILY 10/30/16 01/24/19 Aspirin Chewable [St Ciro 162 mg PO QPM 04/08/17 01/24/19 Aspirin] Duloxetine HCl 60 mg PO QPM 04/09/17 01/24/19 Citalopram Hydrobromide 40 mg PO QPM 12/09/17 01/24/19 [Citalopram HBr] Insulin NPH Human Isophane 70 unit SQ BID 01/14/19 01/24/19 [Humulin N] Levothyroxine [Synthroid] 250 mcg PO QDAC 01/14/19 01/24/19 Metoprolol Tartrate [Lopressor] 25 mg PO BID 01/14/19 01/24/19 glipiZIDE ER [Glucotrol Xl] 2.5 mg PO DAILY 01/14/19 01/24/19 Lactobacillus Acidophilus 1 each PO DAILY 01/24/19 01/24/19 [Probiotic Acidophilus] Vitamin B Complex 1 tab PO DAILY 01/24/19 01/24/19 Ondansetron Odt [Zofran Odt] 4 mg TL Q6H PRN #10 tablet 10/12/19 Ciprofloxacin HCl [Cipro] 500 mg PO BID #20 tablet 10/13/19 Ondansetron Odt [Zofran] 4 mg TL Q6H PRN #10 tablet 10/13/19 Oxycodone HCl/Acetaminophen 1 - 2 each PO Q6H PRN #14 tablet 10/13/19 [Percocet 5-325 mg Tablet] - Allergies Allergies/Adverse Reactions: Allergies Allergy/AdvReac Type Severity Reaction Status Date / Time nitrofurantoin Allergy Severe Unknown Verified 10/13/19 13:38 [From Macrodantin] azithromycin Allergy Edema Verified 10/13/19 13:38 [From Zithromax Z-Robin] Penicillins Allergy Anaphylaxis Verified 10/13/19 13:38 vancomycin Allergy Edema Verified 10/13/19 13:38 erythromycin base AdvReac Emesis Verified 10/13/19 13:38 sulfacetamide sodium * AdvReac Unknown Verified 10/13/19 13:38 [From Sulfamide] - Social History Does the pt smoke?: No Smoking Status: Never smoker Does the pt drink ETOH?: Yes Does the pt have substance abuse?: Yes - Immunizations Immunizations are current?: Yes - POLST Patient has POLST: No POLST Status: DNR PD ED PE NORMAL - Vitals Vital signs reviewed: Yes - General General: Alert and oriented X 3, No acute distress - HEENT HEENT: PERRL, EOMI - Neck Neck: Supple, no meningeal sign, No bony TTP - Cardiac Cardiac: RRR, No murmur - Respiratory Respiratory: No respiratory distress, Clear bilaterally - Abdomen Abdomen: Other (She does have mild left upper quadrant tenderness, no surgical signs no flank tenderness.) - Extremities Extremities: No edema, No calf tenderness / cord - Neuro Neuro: Alert and oriented X 3, Normal speech Results - Vitals Vitals: Vital Signs - 24 hr 10/13/19 10/13/19 13:38 15:43 Temperature 37.2 C Heart Rate 90 90 Respiratory 16 16 Rate Blood Pressure 153/64 H 137/61 H O2 Saturation 96 96 Oxygen O2 Source Room air - Labs Labs: Laboratory Tests 10/13/19 10/13/19 10/13/19 13:52 13:52 15:20 WBC 13.5 H RBC 4.23 Hgb 11.9 L Hct 35.8 L MCV 84.6 MCH 28.1 MCHC 33.2 RDW 13.0 Plt Count 295 MPV 9.2 Neut # (Auto) 11.0 H Lymph # (Auto) 1.0 L [place] # (Auto) 1.2 H Eos # (Auto) 0.1 Baso # (Auto) 0.1 Absolute Nucleated RBC 0.00 Nucleated RBC % 0.0 Sodium 130 L Potassium 4.3 Chloride 95 L Carbon Dioxide 22 Anion Gap 13.0 BUN 21 H Creatinine 1.9 H Estimated GFR (MDRD) 27 L Glucose 187 H Calcium 9.2 Total Bilirubin 1.1 H AST 27 ALT 33 Alkaline Phosphatase 61 Total Protein 7.9 Albumin 4.2 Globulin 3.7 Albumin/Globulin Ratio 1.1 Lipase 25 Urine Color YELLOW Urine Clarity CLEAR Urine pH 6.0 Ur Specific [place] 1.010 Urine Protein TRACE Urine Glucose (UA) NEGATIVE Urine Ketones NEGATIVE Urine Occult Blood SMALL H Urine Nitrite NEGATIVE Urine Bilirubin NEGATIVE Urine Urobilinogen 0.2 (NORMAL) Ur Leukocyte Esterase LARGE H Urine RBC 0-5 Urine WBC >25 H Ur Squamous Epith Cells FEW Squamous Urine Bacteria None Seen Ur Microscopic Review INDICATED Urine Culture Comments INDICATED - Rads (name of study) CT KUB Radiology: EMP read contemporaneously (Left-sided 6 mm proximal ureteral stone with evidence of obstruction) PD MEDICAL DECISION MAKING - ED course ED course: 64-year-old woman with underlying diabetes presents with flank pain, now with mildly worse renal failure and leukocyte esterase and white cells in her urine without bacteriuria. A 6 mm proximal ureteral stone on CT. Case was discussed by phone with Dr. Reid, urology, recommends Cipro and they will call her tomorrow to arrange for close follow-up appointment. Departure - Departure Disposition: 01 Home, Self Care Clinical Impression: Renal colic, Pyuria Condition: Good Instructions: ED Stone Renal W Colic Follow-Up: Jaja Jordan MD [Physician No Access] - (SHE WILL SEE YOU IN [facility] [facility] BY MARSHALL ANDRADE) Prescriptions: Ciprofloxacin HCl [Cipro] 500 mg PO BID #20 tablet Oxycodone HCl/Acetaminophen [Percocet 5-325 mg Tablet] 1 - 2 each PO Q6H PRN #14 tablet PRN Reason: pain Ondansetron Odt [Zofran] 4 mg TL Q6H PRN #10 tablet PRN Reason: Nausea / Vomiting Comments: There is an appointment set up for you tomorrow at the [place] office with Dr. Jordan at 3:30 PM. Return for new or worsening symptoms or if pain is unc ontrolled. When you followup bring the CD with the CAT scan with you.
[2019-10-13] MEDS ORDERED: IOVERSOL 320 100 ML VIAL IVP ONE (15:13)
[2019-10-13 15:30] LABS: BILIRUBIN,URINE NEGATIVE (NEGATIVE); GLUCOSE, URINE (UA) NEGATIVE (NEGATIVE); KETONES,URINE (UA) NEGATIVE (NEGATIVE); LEUKOCYTE ESTERASE, URINE LARGE (NEGATIVE); NITRITE,URINE NEGATIVE (NEGATIVE); OCCULT BLOOD,URINE SMALL (NEGATIVE); PROTEIN,URINE TRACE mg/dL (NEGATIVE); UROBILINOGEN,URINE 0.2 (NORMAL) E.U./dL (NORMAL)
[2019-10-13 15:32] LABS: CLARITY,URINE CLEAR (CLEAR)
[2019-10-13 15:42] LABS: BACTERIA,URINE None Seen /HPF (None Seen); RBC,URINE 0-5 /HPF (0-5); SQUAMOUS EPITHELIAL CELL,UR FEW Squamous (<= Few)
--- NOTE | 2019-10-13 15:56 | CT Report ---
PROCEDURE: Abdomen/Pelvis WO INDICATIONS: L flank pain TECHNIQUE: Noncontrast 5 mm thick sections acquired from the diaphragms to the symphysis. 5 mm coronal and sagi ttal reformats were then performed. For radiation dose reduction, the following was used: automated exposure control, adjustment of mA and/or kV according to patient size. COMPARISON: None. FINDINGS: Image quality: Excellent. ABDOMEN: Lung bases: Lung bases are clear. Heart size is normal. Solid organs: There is an approximately 6 mm calculus in the proximal left ureter producing mild hydr oureteronephrosis with mild nephromegaly and perinephric fat stranding. No additional urinary tract c alculus identified. The right kidney and collecting system are within normal limits. The remaining un enhanced solid abdominal viscera demonstrate no acute finding or discrete mass, with the caveat that the lack of IV contrast limits evaluation. Gallbladder is surgically absent. Peritoneum and bowel: No abnormally dilated or thickened loops of bowel. No pericolonic or mesenteric inflammatory changes. Nodes and vessels: No retroperitoneal or mesenteric adenopathy by size criteria. Aorta and inferior vena cava are normal in caliber. Miscellaneous: Prior ventral abdominal wall mesh hernia repair. No evidence of recurrent hernia. Smal l periumbilical hernia containing fat. PELVIS: Genitourinary: Bladder wall thickness is normal. Miscellaneous: No inguinal hernias or adenopathy. Bones: No suspicious bony lesions. No vertebral body compression fractures. IMPRESSION: Approximately 6 mm proximal left ureteral calculus producing mild hydroureteronephrosis with mild nep hromegaly and perinephric fat stranding. Reviewed by: Shane Sr MD on 10/13/2019 3:55 PM PDT Approved by: Shane Sr MD on 10/13/2019 3:55 PM PDT Station ID: [id number]
[2019-10-13] MEDS ORDERED: HYDROmorphone 1 MG/ML CARPUJECT IVP STA (16:01)
[2019-10-13] MEDS ORDERED: CIPROFLOXACIN 400 MG/200 ML 400 MG/200 ML BAG IV STA (16:10)
[2019-10-13 17:36] VITALS: BP 114/65
== END 2019-10-13 17:36 | disposition home or self-care (01) ==
LOC: ED 13:36
DX: N13.2 Hydronephrosis with renal and ureteral calculous obstruction (principal); R82.81 Pyuria; I10 Essential (primary) hypertension; I25.10 Atherosclerotic heart disease of native coronary artery without angina pectoris; I25.2 Old myocardial infarction; E11.42 Type 2 diabetes mellitus with diabetic polyneuropathy; Z79.4 Long term (current) use of insulin; Z79.82 Long term (current) use of aspirin; Z95.1 Presence of aortocoronary bypass graft
CPT/HCPCS: 36415; 74176; 80053; 81001; 83690; 85025; 87086; 96374; 96375; 99284; J1170; 81003

== ENCOUNTER 2020-03-10 13:49 | Emergency (ER) | payer BC, MEDICARE ==
[2020-03-10] MEDS ORDERED: NITROGLYCERIN SL 0.4 MG TABLET SL STA ×3 (14:19→14:54)
--- NOTE | 2020-03-10 14:46 | XRAY Report ---
PROCEDURE: Chest 1 View X-Ray INDICATIONS: Chest Pain TECHNIQUE: One view of the chest was acquired. COMPARISON: 10/11/2019 FINDINGS: Surgical changes and devices: Sternotomy wires are seen. Mediastinal clips are seen. Right axillary a nd right chest wall clips are seen. Lungs and pleura: No pleural effusions or pneumothorax. Lungs are clear. Mediastinum: The aorta is prominent and tortuous. The cardiac contours are mildly enlarged. Bones and chest wall: No suspicious bony lesions. Age-appropriate degenerative changes are seen. Overlying soft tissues appear unremarkable. IMPRESSION: Stable study demonstrating postoperative change and mild cardiomegaly. Reviewed by: Db Coburn MD on 03/10/2020 1:45 PM [facility] Approved by: Db Coburn MD on 03/10/2020 1:45 PM [facility] Station ID: [id number]
[2020-03-10 14:51] LABS: BASOPHILS # (AUTO) 0.1 10^3/uL (0.0-0.1); BASOPHILS % (AUTO) 0.8 %; EOSINOPHILS # (AUTO) 0.4 10^3/uL (0.0-0.7); EOSINOPHILS % (AUTO) 4.6 %; LYMPHOCYTES # (AUTO) 3.4 10^3/uL (1.5-3.5); LYMPHOCYTES % (AUTO) 37.8 %; MEAN CORPUSCULAR HEMOGLOBIN 27.1 pg (27.0-31.0); MEAN CORPUSCULAR HGB CONC 32.2 g/dL (32.0-36.0); MEAN CORPUSCULAR VOLUME 84.3 fL (81.0-99.0); MEAN PLATELET VOLUME 9.7 fL (7.9-10.8); MONOCYTES # (AUTO) 0.7 10^3/uL (0.0-1.0); MONOCYTES % (AUTO) 7.5 %; NEUTROPHILS # (AUTO) 4.4 10^3/uL (1.5-6.6); NEUTROPHILS % (AUTO) 48.4 %; PLT - PLATELET COUNT 368 10^3/uL (130-450); RED BLOOD COUNT 4.79 10^6/uL (4.20-5.40); RED CELL DISTRIBUTION WIDTH 12.6 % (12.0-15.0)
[2020-03-10 15:04] LABS: ALBUMIN 4.3 g/dL (3.2-5.5); ALBUMIN/GLOBULIN RATIO 1.1 (1.0-2.2); BILIRUBIN,TOTAL 0.5 mg/dL (0.2-1.0); CALCIUM 10.5 mg/dL (8.5-10.3); CREATININE 1.1 mg/dL (0.4-1.0); TOTAL PROTEIN 8.2 g/dL (6.7-8.2)
[2020-03-10] MEDS ORDERED: ONDANSETRON 4 MG/2 ML VIAL IVP STA ×2 (15:05→16:15)
[2020-03-10] MEDS ORDERED: MORPHINE 2 MG/ML CARPUJECT IVP STA ×2 (15:05→16:15)
[2020-03-10] MEDS ORDERED: ONDANSETRON 4 MG/2 ML VIAL ONE (15:12)
--- NOTE | 2020-03-10 15:51 | ED Physician Documentation ---
PD HPI CHEST PAIN - Stated complaint Stated Complaint: CHEST PX/LT ARM NUMBNESS - Chief complaint Chief Complaint: Cardiac - History obtained from History obtained from: Patient - History of Present Illness Timing - details: Abrupt onset Pain level max: 10 Pain level now: 6 Quality: Sharp, Stabbing Location: Substernal, Left chest, Left shoulder/arm, Left jaw Radiation: Jaw, Left upper extremity Improved by: Other medication Worsened by: No: Exertion, Inspiration, Eating, Movement, Palpation, Position Associated symptoms: Nausea. No: Shortness of air, Diaphoresis, Vomiting, Feeling faint / dizzy, General Weakness, Palpitations, Cough Similar symptoms before: Diagnosis (Prior CABG) Recently seen: Not recently seen - Additional information Additional information: Pt is 65 yo F w/ pmh of CABG in 2017 presents with sudden onset sharp left chest pain radiating into the left arm and left jaw. Started just guard captain. She had gone to the store and returned back home and was resting on the couch when the pain started and she called EMS. No alleviating or exacerbating factors. She had taken Aspirin 650mg due to a headache prior to the pain starting. She had associated nausea but no vomiting, dyspnea, or diaphoresis. No recent cough or URI sx, no fever. Pt does state she recently returned from [place] 4 days ago--she had been visiting her dtr and grandchildren. No known sick contacts. Review of Systems Constitutional: reports: Reviewed and negative Eyes: reports: Reviewed and negative Ears: reports: Reviewed and negative Nose: reports: Reviewed and negative Throat: reports: Reviewed and negative Cardiac: reports: Chest pain / pressure. denies: Palpitations, Pedal edema, Calf pain Respiratory: reports: Reviewed and negative GI: reports: Reviewed and negative : reports: Reviewed and negative Skin: reports: Reviewed and negative Musculoskeletal: reports: Reviewed and negative Neurologic: reports: Reviewed and negative Psychiatric: reports: Reviewed and negative PD PAST MEDICAL HISTORY - Past Medical History Past Medical History: Yes Cardiovascular: Hypertension, High cholesterol, Coronary artery disease, [place], Other Respiratory: Sleep apnea, CPAP use, Other Neuro: TIA, Headaches, Migraines, Peripheral neuropathy, Seizure disorder Endocrine/Autoimmune: Type 2 diabetes, HyPOthyroidism GI: GERD, Hiatal hernia, Colon polyps, Hemorrhoids, Other MANAGER ROOM: Breast cancer, Other : Incontinence HEENT: Chronic vision loss, Chronic sinusitis Psych: Depression, Anxiety, Bipolar disorder, Panic attacks, Claustrophobia Musculoskeletal: Osteoarthritis, Chronic back pain Derm: None - Past Surgical History Past Surgical History: Yes General: Cholecystectomy, Appendectomy, Colonoscopy, Other Ortho: Carpal Tunnel surgery, Other /MANAGER ROOM: Tubal ligation, Hysterectomy, Mastectomy, Breast implants Cardiovascular: CABG, Coronary stent, Cardiac catheterization, Angioplasty, Other HEENT: Cataracts, Tonsil/Adenoidectomy - Present Medications Home Medications: Ambulatory Orders Medication Instructions Recorded Confirmed Alprazolam 0.5 mg PO QPM PRN 10/30/16 01/24/19 Atorvastatin Calcium 40 mg PO QPM 10/30/16 01/24/19 Metformin HCl 1,000 mg PO BIDWM 10/30/16 01/24/19 Multivitamin [Multivitamins] 1 tab PO DAILY 10/30/16 01/24/19 Pantoprazole [Protonix] 40 mg PO DAILY 10/30/16 01/24/19 Aspirin Chewable [St Ciro 162 mg PO QPM 04/08/17 01/24/19 Aspirin] Duloxetine HCl 60 mg PO QPM 04/09/17 01/24/19 Citalopram Hydrobromide 40 mg PO QPM 12/09/17 01/24/19 [Citalopram HBr] Insulin NPH Human Isophane 70 unit SQ BID 01/14/19 01/24/19 [Humulin N] Levothyroxine [Synthroid] 250 mcg PO QDAC 01/14/19 01/24/19 Metoprolol Tartrate [Lopressor] 25 mg PO BID 01/14/19 01/24/19 glipiZIDE ER [Glucotrol Xl] 2.5 mg PO DAILY 01/14/19 01/24/19 Lactobacillus Acidophilus 1 each PO DAILY 01/24/19 01/24/19 [Probiotic Acidophilus] Vitamin B Complex 1 tab PO DAILY 01/24/19 01/24/19 Ondansetron Odt [Zofran Odt] 4 mg TL Q6H PRN #10 tablet 10/12/19 Ciprofloxacin HCl [Cipro] 500 mg PO BID #20 tablet 10/13/19 Ondansetron Odt [Zofran] 4 mg TL Q6H PRN #10 tablet 10/13/19 Oxycodone HCl/Acetaminophen 1 - 2 each PO Q6H PRN #14 tablet 10/13/19 [Percocet 5-325 mg Tablet] - Allergies Allergies/Adverse Reactions: Allergies Allergy/AdvReac Type Severity Reaction Status Date / Time nitrofurantoin Allergy Severe Unknown Verified 03/10/20 13:58 [From Macrodantin] azithromycin Allergy Edema Verified 03/10/20 13:58 [From Zithromax Z-Robin] Penicillins Allergy Anaphylaxis Verified 03/10/20 13:58 vancomycin Allergy Edema Verified 03/10/20 13:58 erythromycin base AdvReac Emesis Verified 03/10/20 13:58 sulfacetamide sodium * AdvReac Unknown Verified 03/10/20 13:58 [From Sulfamide] - Social History Does the pt smoke?: No Smoking Status: Never smoker Does the pt drink ETOH?: Yes Does the pt have substance abuse?: Yes - Immunizations Immunizations are current?: Yes - POLST Patient has POLST: No POLST Status: DNR PD ED PE NORMAL - Vitals Vital signs reviewed: Yes - General General: Alert and oriented X 3, No acute distress, Well developed/nourished - HEENT HEENT: Atraumatic, Moist mucous membranes - Cardiac Cardiac: RRR, No murmur, No gallop, No rub, Strong equal pulses - Respiratory Respiratory: No respiratory distress, Clear bilaterally - Abdomen Abdomen: Normal bowel sounds, Soft, Non tender, Non distended - Derm Derm: Normal color, Warm and dry, No rash - Extremities Extremities: No deformity, No tenderness to palpate, Normal ROM s pain, No edema, No calf tenderness / cord - Neuro Neuro: Alert and oriented X 3 Eye Opening: Spontaneous Motor: Obeys Commands Verbal: Oriented GCS Score: 15 - Psych Psych: Normal mood, Normal affect Results - Vitals Vitals: Vital Signs - 24 hr 03/10/20 03/10/20 03/10/20 13:51 14:35 14:40 Temperature 36.3 C L Heart Rate 53 L 56 L 56 L Respiratory 20 16 16 Rate Blood Pressure 160/72 H 156/85 H 136/71 H O2 Saturation 100 94 94 03/10/20 03/10/20 03/10/20 14:43 14:50 15:00 Temperature Heart Rate 60 65 64 Respiratory 16 20 18 Rate Blood Pressure 135/67 H 150/76 H 141/75 H O2 Saturation 94 94 96 03/10/20 03/10/20 03/10/20 15:05 15:15 15:30 Temperature Heart Rate 61 62 58 L Respiratory 20 20 18 Rate Blood Pressure 139/72 H 170/87 H 152/74 H O2 Saturation 95 92 97 03/10/20 03/10/20 03/10/20 15:45 16:00 16:15 Temperature Heart Rate 57 L 56 L 60 Respiratory 16 21 20 Rate Blood Pressure 147/80 H 147/79 H 147/81 H O2 Saturation 94 97 98 03/10/20 03/10/20 03/10/20 16:30 17:00 17:15 Temperature Heart Rate 57 L 64 61 Respiratory 20 18 20 Rate Blood Pressure 156/80 H 132/74 H 143/78 H O2 Saturation 93 97 95 03/10/20 03/10/20 03/10/20 17:30 17:45 18:03 Temperature Heart Rate 58 L 57 L 78 Respiratory 20 18 16 Rate Blood Pressure 148/76 H 167/82 H 167/82 H O2 Saturation 93 95 97 Oxygen O2 Source Room air - EKG (time done) No standard instances Rate: Rate (enter#) (56), Dario Rhythm: Sinus bradycardia Lamar: Normal Intervals: RBBB QRS: LVH Ischemia: Normal ST segments Compare to prior EKG: Unchanged from prior EKG Computer interpretation: Agree with computer - Labs Labs: Laboratory Tests 03/10/20 03/10/20 03/10/20 14:35 14:35 14:35 WBC 9.0 RBC 4.79 Hgb 13.0 Hct 40.4 MCV 84.3 MCH 27.1 MCHC 32.2 RDW 12.6 Plt Count 368 MPV 9.7 Neut # (Auto) 4.4 Lymph # (Auto) 3.4 Knott # (Auto) 0.7 Eos # (Auto) 0.4 Baso # (Auto) 0.1 Absolute Nucleated RBC 0.00 Nucleated RBC % 0.0 D-Dimer Sodium 136 Potassium 4.1 Chloride 96 L Carbon Dioxide 24 Anion Gap 16.0 H BUN 28 H Creatinine 1.1 H Estimated GFR (MDRD) 50 L Glucose 87 Calcium 10.5 H Total Bilirubin 0.5 AST 33 ALT 38 Alkaline Phosphatase 62 Troponin I High Sens 4.5 Total Protein 8.2 Albumin 4.3 Globulin 3.8 Albumin/Globulin Ratio 1.1 Lipase 37 Urine Color Urine Clarity Urine pH Ur Specific [place] Urine Protein Urine Glucose (UA) Urine Ketones Urine Occult Blood Urine Nitrite Urine Bilirubin Urine Urobilinogen Ur Leukocyte Esterase Ur Microscopic Review Urine Culture Comments 03/10/20 03/10/20 03/10/20 15:55 16:33 16:33 WBC RBC Hgb Hct MCV MCH MCHC RDW Plt Count MPV Neut # (Auto) Lymph # (Auto) Knott # (Auto) Eos # (Auto) Baso # (Auto) Absolute Nucleated RBC Nucleated RBC % D-Dimer 249.2 Sodium Potassium Chloride Carbon Dioxide Anion Gap BUN Creatinine Estimated GFR (MDRD) Glucose Calcium Total Bilirubin AST ALT Alkaline Phosphatase Troponin I High Sens 5.2 Total Protein Albumin Globulin Albumin/Globulin Ratio Lipase Urine Color YELLOW Urine Clarity CLEAR Urine pH 6.0 Ur Specific [place] <=1.005 Urine Protein NEGATIVE Urine Glucose (UA) 250 H Urine Ketones NEGATIVE Urine Occult Blood NEGATIVE Urine Nitrite NEGATIVE Urine Bilirubin NEGATIVE Urine Urobilinogen 0.2 (NORMAL) Ur Leukocyte Esterase NEGATIVE Ur Microscopic Review NOT INDICATED Urine Culture Comments NOT INDICATED PD MEDICAL DECISION MAKING - ED course Complexity details: reviewed old records, reviewed results, re-evaluated patient, considered differential, d/w patient, other (d/w Dr. Cowart, ED attending) ED course: This is a 65 yo F who presented with left chest pain. Initial concern for possible ACS, other differentials considered included pneumonia, PE, ptx, dissection, GERD, msk pain. Patient had active chest pain on arrival and therefore was given nitro sl x 3, though had no improvement in her sx. She then received morphine and zofran w/ transietn improvement. She had taken aspirin at home therefore was not redosed. Pts chest xray was baseline w/o acute pna or pneumothorax. She was not hypoxic or tachycardic but given recent air travel a d-dimer was obtained to r/o PE and this was negative. Two EKGS obtained several hours apart and both sinus dario 55-56 with a RBBB, similar to last EKG reviewed in chart. Troponins obtained x 2 and are negative. Pts sx ultimately fully resolved with the administration of maalox suggesting dyspepsia. I reviewed case and findings w/ Dr. Cowart and plan to discharge home w/ strict return precautions if pain recurs or new symptoms arise. I have also advised pt to follow up with her stranding machine operator via phone tomorrow to schedule a follow up appointment. Departure - Departure Disposition: 01 Home, Self Care Clinical Impression: Angina pectoris, Dyspepsia Condition: Good Instructions: ED Chest Pain Angina Stable, ED Chest Pain Atypical Unkn Cause Comments: You presented with left sided chest pain that radiated into your jaw and shoulder. We initially evaluated you for a heart attack and the testing for this was all reassuring. You had two negative Troponin tests, your EKGs were unchanged from previous ones, and your chest xray was stable. We did a d-dimer to evaluate for a possible blood clot in the lungs and this was also normal. Your pain didn't improve much with nitroglycerine or morphine, but you had complete relief with maalox, which suggests this may have been a acid reflux or dyspepsia that caused your symptoms. It is important that you follow up with your heart doctor within 1 week. You should return at anytime for worsening symptoms. You may try otc acid specialties operator medications and please avoid high fat, sp icy, or acidic foods to reduce dyyspepsia. Discharge Date/Time: 03/10/20 18:03
[2020-03-10 16:38] LABS: BILIRUBIN,URINE NEGATIVE (NEGATIVE); GLUCOSE, URINE (UA) 250 mg/dL (NEGATIVE); KETONES,URINE (UA) NEGATIVE (NEGATIVE); LEUKOCYTE ESTERASE, URINE NEGATIVE (NEGATIVE); NITRITE,URINE NEGATIVE (NEGATIVE); OCCULT BLOOD,URINE NEGATIVE (NEGATIVE); PROTEIN,URINE NEGATIVE (NEGATIVE); UROBILINOGEN,URINE 0.2 (NORMAL) E.U./dL (NORMAL)
[2020-03-10 16:40] LABS: CLARITY,URINE CLEAR (CLEAR)
[2020-03-10] MEDS ORDERED: MAG HYDROX/AL HYDROX/SIMETH 30 ML UDC PO STA (16:56)
[2020-03-10 18:03] VITALS: BP 167/82
== END 2020-03-10 18:03 | disposition home or self-care (01) ==
LOC: ED 13:49
DX: I20.9 Angina pectoris, unspecified (principal); R10.13 Epigastric pain; I10 Essential (primary) hypertension; E11.9 Type 2 diabetes mellitus without complications; Z79.4 Long term (current) use of insulin; Z66 Do not resuscitate
CPT/HCPCS: 36415; 71045; 80053; 81003; 83690; 84484; 85025; 85379; 93005; 96374; 96375; 96376; 99284; 99285; A9270; 81001; 87086

== ENCOUNTER 2020-07-06 07:34 | Outpatient (CLI) | payer MEDICARE ==
--- NOTE | 2020-07-07 15:09 | Ultrasound Report ---
LIMITED ULTRASOUND OF LEFT BREAST: 07/06/2020 CLINICAL: Palpable left breast lump. Comparison: Breast MRI dated 09/09/2018 and 09/27/2018. Color flow and real-time ultrasound of the left breast 1-2 o'clock and 9-11 o'clock regions were per formed. Avalos scale images of the real-time examination were reviewed. There are multiple oval shaped hypoechoic masses with circumscribed margins in the left breast in th e upper aspect that correlate with clinical concern, and palpable abnormalities. These are avascular without posterior acoustic features. These measure between 0.3cm and 0.7 cm in size and are documente d at the 9:00, 10:00, 11:00, 1:00 and 2:00 positions. These likely correlate with multiple fat intens ity lesions seen on comparison MRI and are favored to represent areas of fat necrosis. Otherwise, no suspicious solid mass or disturbed echotexture. No pericapsular fluid seen in the underlying breast i mplant. IMPRESSION: PROBABLY BENIGN Multiple oval hypoechoic, avascular masses in the the left breast upper half from 9:00 to 2:00 positi ons likely representing evolving fat necrosis in this patient who is status bilateral mastectomies wi th breast reconstruction. This is probably benign. A follow-up left ultrasound in 6 months is recommended to demonstrate stability. Recommend close c linical surveillance with instructions to return sooner if any new or clinically suspicious findings develop in the interim. Findings and recommendations were discussed with the patient during today's examination. This exam was interpreted at Station ID: [id number]. Electronically Signed By: Jamil Bonner M.D. aty/:07/06/2020 11:12:32 Ultrasound BI-RADS: 3 Probably benign BI-RADS CATEGORY: (3) - 3 Ultrasound [id number] 6 month follow-up LATERALITY: (B)
== END 2020-07-06 07:35 | disposition home or self-care (01) ==
LOC: DI 07:34
PROVIDERS: ATTEND Internal Medicine
DX: N63.25 Unspecified lump in the left breast, overlapping quadrants (principal); Z90.13 Acquired absence of bilateral breasts and nipples

== ENCOUNTER 2020-12-07 16:40 | Outpatient (CLI) | payer MEDICARE, OTHER ==
--- NOTE | 2020-12-07 18:04 | XRAY Report ---
PROCEDURE: Knee 4 View BILAT INDICATIONS: KNEE PX GREATER THAN 3 MONTHS, BILATERAL TECHNIQUE: 4 views of the bilateral knee(s) were acquired, 8 views total. COMPARISON: None. FINDINGS: Bones: No fractures or dislocations. No suspicious bony lesions. Prior total knee arthroplasty tiffanie ears free of disruption at the left knee, no evidence of arthroplasty loosening. The right knee shows moderately severe degenerative knee joint osteoarthritis at the medial and lateral compartments on t he frontal projection, weightbearing. There is severe with [id number] degenerative change at the la teral facet of the patellofemoral joint. Soft tissues: No joint effusion. No suspicious soft tissue calcifications. IMPRESSION: No acute disease. Moderate to moderately severe degenerative changes overall involve the right knee. Severe [id number] articulation is seen at the lateral facet of the patellofemoral join t at the right knee. Normal appearing left total knee arthroplasty. Reviewed by: Ming Gaona MD on 12/07/2020 6:03 PM PDT Approved by: Ming Gaona MD on 12/07/2020 6:03 PM PDT Station ID: [id number]
== END 2020-12-07 16:41 | disposition home or self-care (01) ==
LOC: DI.N 16:40
PROVIDERS: ATTEND Physician Assistant
DX: M25.561 Pain in right knee (principal); M17.11 Unilateral primary osteoarthritis, right knee; Z96.652 Presence of left artificial knee joint

== ENCOUNTER 2020-12-10 09:03 | Outpatient (CLI) | payer MEDICARE ==
--- NOTE | 2020-12-28 07:27 | Ultrasound Report ---
LIMITED ULTRASOUND OF RIGHT BREAST: 12/10/2020 CLINICAL: Palpable right breast lumps. Comparison is made to exams dated: 07/06/2020 ultrasound - [facility], 01/07/2013 ma mmogram, 01/07/2013 ultrasound biopsy, 12/27/2012 mammogram, and 12/27/2012 [facility]. Color flow and real-time ultrasound of the right breast 11-1 o'clock and 7-8 o'clock regions were per formed. Avalos scale images of the real-time examination were reviewed. No shadowing mass identified. There are hypoechoic foci adjacent to the implant, three in total, pres umably related to placement representing scarring or calcification. IMPRESSION: NEGATIVE There is no sonographic evidence of malignancy. The patient is due for a left breast ultrasound on . This exam was interpreted at Station ID: [id number]. Electronically Signed By: Shane Sr M.D. jr/:12/24/2020 16:13:27 Ultrasound BI-RADS: 1 Negative BI-RADS CATEGORY: (1) - 1 RECOMMENDATION: (ANNUAL) - Recommend routine annual screening mammography. [id number] return to screening LATERALITY: (B)
== END 2020-12-10 09:04 | disposition home or self-care (01) ==
LOC: DI 09:03
PROVIDERS: ATTEND Internal Medicine
DX: R92.8 Other abnormal and inconclusive findings on diagnostic imaging of breast (principal); N64.59 Other signs and symptoms in breast; Z98.82 Breast implant status

== ENCOUNTER 2021-05-23 11:22 | Outpatient (CLI) | payer BC, MEDICARE ==
[2021-05-23 11:50] LABS: CREATININE 1.4 mg/dL (0.4-1.0)
--- NOTE | 2021-05-23 12:04 | CT Report ---
PROCEDURE: Abdomen/Pelvis WO INDICATIONS: Abd, left flank pain TECHNIQUE: Noncontrast 5 mm thick sections acquired from the diaphragms to the symphysis. 5 mm coronal and sagi ttal reformats were then performed. For radiation dose reduction, the following was used: automated exposure control, adjustment of mA and/or kV according to patient size. COMPARISON: CT abdomen/pelvis 10/13/2019. FINDINGS: Image quality: Excellent. ABDOMEN: Lung bases: Lung bases are clear. Heart size is normal. Solid organs: The liver is mildly enlarged, measuring up to 21.5 cm in craniocaudal extent. The liver is diffusely hypoattenuating, consistent with fatty infiltration. Status post cholecystectomy. Pancr eas is normal in contours. The spleen is normal in size. No adrenal nodules. Kidneys are normal in size, without hydronephrosis or nephrolithiasis. Peritoneum and bowel: Multiple diverticula are seen in the colon. There is bowel wall thickening and inflammatory fat stranding surrounding a diverticulum in the proximal sigmoid colon, consistent with acute diverticulitis. No focal fluid collection or pneumoperitoneum is seen. No signs of bowel obstru ction. Nodes and vessels: No retroperitoneal or mesenteric adenopathy by size criteria. Aorta and inferior vena cava are normal in caliber. Mild/moderate aortic atherosclerotic calcifications are present. Miscellaneous: Postsurgical changes from ventral hernia repair in the upper abdomen. No recurrent chastity tral hernia is seen in this location. There is a stable small fat-containing periumbilical hernia. PELVIS: Genitourinary: Bladder wall thickness is normal. Status post hysterectomy. Miscellaneous: No inguinal hernias or adenopathy. Surgical clip is seen in the left inguinal region . Bones: No suspicious bony lesions. No vertebral body compression fractures. IMPRESSION: 1.Acute uncomplicated sigmoid diverticulitis. 2.No renal or ureteral calculus or hydronephrosis. 3.Hepatomegaly and diffuse hepatic steatosis. Reviewed by: Basim Traore MD on 05/23/2021 12:02 PM PST Approved by: Basim Traore MD on 05/23/2021 12:02 PM PST Station ID: [id number]
== END 2021-05-23 11:23 | disposition home or self-care (01) ==
LOC: DI 11:22
PROVIDERS: ATTEND Internal Medicine
DX: K57.32 Diverticulitis of large intestine without perforation or abscess without bleeding (principal); K76.0 Fatty (change of) liver, not elsewhere classified; R16.0 Hepatomegaly, not elsewhere classified; Z79.899 Other long term (current) drug therapy
CPT/HCPCS: 36415; 82565

== ENCOUNTER 2021-07-21 16:55 | Emergency (ER) | payer MEDICARE ==
[2021-07-21 17:13] VITALS: BP 140/76
--- NOTE | 2021-07-21 17:43 | ED Physician Documentation ---
PD HPI LOWER EXT INJURY - Stated complaint Stated Complaint: RT KNEE PX/CAN'T PUT WEIGHT ON IT - Chief complaint Chief Complaint: Trauma Ext - History obtained from History obtained from: Patient - History of Present Illness PD HPI LOW EXT INJURY LOCATION: Right, Knee Type of injury: Twist (she got up from recliner and felt onset of pain and pop in right knee, with abrupt pain and then swelling soon after. Very painful for walking, with pain up to thigh area.) Where injury occurred: Home Timing - onset: How many hours ago ([place] trail to [place] once walked bicycle back.), Today Timing - duration: Hours (1) Timing - details: Abrupt onset, Still present Improved by: No: Rest Worsened by: Moving, Palpating Associated symptoms: Swelling. No: Weakness, Numbness Similar symptoms before: Has not had sx before Review of Systems Constitutional: denies: Fever, Chills Nose: denies: Rhinorrhea / runny nose, Congestion Throat: denies: Sore throat Cardiac: denies: Chest pain / pressure Respiratory: denies: Cough GI: denies: Abdominal Pain Musculoskeletal: denies: Neck pain, Back pain Neurologic: denies: Focal weakness, Numbness PD PAST MEDICAL HISTORY - Past Medical History Past Medical History: Yes Cardiovascular: Hypertension, High cholesterol, Coronary artery disease, [place], Other Respiratory: Sleep apnea, CPAP use, Other Neuro: TIA, Headaches, Migraines, Peripheral neuropathy, Seizure disorder Endocrine/Autoimmune: Type 2 diabetes, HyPOthyroidism GI: GERD, Hiatal hernia, Colon polyps, Hemorrhoids, Other [employer]: Breast cancer, Other : Incontinence HEENT: Chronic vision loss, Chronic sinusitis Psych: Depression, Anxiety, Bipolar disorder, Panic attacks, Claustrophobia Musculoskeletal: Osteoarthritis, Chronic back pain Derm: None - Past Surgical History Past Surgical History: Yes General: Cholecystectomy, Appendectomy, Colonoscopy, Other Ortho: Carpal Tunnel surgery, Other /[employer]ENDER: Tubal ligation, Hysterectomy, Mastectomy, Breast implants Cardiovascular: CABG, Coronary stent, Cardiac catheterization, Angioplasty, Other HEENT: Cataracts, Tonsil/Adenoidectomy - Present Medications Home Medications: Ambulatory Orders Medication Instructions Recorded Confirmed Alprazolam 0.5 mg PO QPM PRN 10/30/16 01/24/19 Atorvastatin Calcium 40 mg PO QPM 10/30/16 01/24/19 Metformin HCl 1,000 mg PO BIDWM 10/30/16 01/24/19 Multivitamin [Multivitamins] 1 tab PO DAILY 10/30/16 01/24/19 Pantoprazole [Protonix] 40 mg PO DAILY 10/30/16 01/24/19 Aspirin Chewable [St Ciro 162 mg PO QPM 04/08/17 01/24/19 Aspirin] Duloxetine HCl 60 mg PO QPM 04/09/17 01/24/19 Citalopram Hydrobromide 40 mg PO QPM 12/09/17 01/24/19 [Citalopram HBr] Insulin NPH Human Isophane 70 unit SQ BID 01/14/19 01/24/19 [Humulin N] Levothyroxine [Synthroid] 250 mcg PO QDAC 01/14/19 01/24/19 Metoprolol Tartrate [Lopressor] 25 mg PO BID 01/14/19 01/24/19 glipiZIDE ER [Glucotrol Xl] 2.5 mg PO DAILY 01/14/19 01/24/19 Lactobacillus Acidophilus 1 each PO DAILY 01/24/19 01/24/19 [Probiotic Acidophilus] Vitamin B Complex 1 tab PO DAILY 01/24/19 01/24/19 Ondansetron Odt [Zofran Odt] 4 mg TL Q6H PRN #10 tablet 10/12/19 Ciprofloxacin HCl [Cipro] 500 mg PO BID #20 tablet 10/13/19 Ondansetron Odt [Zofran] 4 mg TL Q6H PRN #10 tablet 10/13/19 Oxycodone HCl/Acetaminophen 1 - 2 each PO Q6H PRN #14 tablet 10/13/19 [Percocet 5-325 mg Tablet] HYDROcod/ACETAM 5/325 [[place] 5/325] 1 ea PO Q6H PRN #18 tablet 07/21/21 Naproxen 250 mg PO BID 7 Days #14 tablet 07/21/21 - Allergies Allergies/Adverse Reactions: Allergies Allergy/AdvReac Type Severity Reaction Status Date / Time nitrofurantoin Allergy Severe Unknown Verified 07/21/21 17:10 [From Macrodantin] azithromycin Allergy Edema Verified 07/21/21 17:10 [From Zithromax Z-Robin] Penicillins Allergy Anaphylaxis Verified 03/31/22 17:10 vancomycin Allergy Edema Verified 07/21/21 17:10 erythromycin base AdvReac Emesis Verified 07/21/21 17:10 sulfacetamide sodium * AdvReac Unknown Verified 07/21/21 17:10 [From Sulfamide] - Social History Does the pt smoke?: No Smoking Status: Never smoker Does the pt drink ETOH?: Yes Does the pt have substance abuse?: Yes - Immunizations Immunizations are current?: Yes - POLST Patient has POLST: No POLST Status: DNR PD ED PE NORMAL - Vitals Vital signs reviewed: Yes - General General: Alert and oriented X 3, Well developed/nourished, Other (appears in pain due to knee. Alert and conversant. ) - Neck Neck: Supple, no meningeal sign, No bony TTP, No adenopathy - Cardiac Cardiac: RRR, No murmur - Respiratory Respiratory: Clear bilaterally - Abdomen Abdomen: Soft, Non tender - Derm Derm: Normal color, Warm and dry - Extremities Extremities: Other (right knee with significant tenderness anteriorly mostly. moderate effusion. No noted pain with collateral stress testing. Pain but no laxity with cruciate testing. Limited exam for meniscal testing due to pain. medial mid quadriceps with some tender and softness within muscle. Tendon feels intact. ) - Neuro Neuro: Alert and oriented X 3, No motor deficit, No sensory deficit, Normal speech Results - Vitals Vitals: Vital Signs - 24 hr 07/21/21 07/21/21 17:10 19:22 Temperature 36.7 C Heart Rate 70 60 Respiratory 14 21 Rate Blood Pressure 140/76 H O2 Saturation 98 96 Oxygen O2 Source Room air - Rads (name of study) right knee Radiology: Prelim report reviewed (some arthritis, large effusion, no fractures. ), See rad report Procedures - Arthrocentesis Joint: Knee Preparation: Consent obtained (verbal), Sterile prep and drape Anesthesia: Marcaine 0.5% Fluid: Bloody, Fluid obtained - cc (50) Aftercare: Dressing applied, No complications, Patient tolerated well PD MEDICAL DECISION MAKING - ED course Complexity details: re-evaluated patient (she has much decreased pain after arthrocentesis. Able to lift leg straight and with some ROM flexion possible no w. ), considered differential (abrupt pain and effusion with getting up from recliner. likely meniscal tear vs. cruciate.), d/w patient Departure - Departure Disposition: 01 Home, Self Care Clinical Impression: Knee internal derangement Qualifiers: Laterality: right Qualified Code(s): M23.91 - Unspecified internal derangement of right knee Knee effusion Qualifiers: Laterality: right Qualified Code(s): M25.461 - Effusion, right knee Condition: Stable Record reviewed to determine appropriate education?: Yes Instructions: ED Meniscal Injury Knee Poss Follow-Up: Irma Waters MD [Primary Care Provider] - Ruslan Appiah MD [Provider Admit Priv/Credential] - Prescriptions: Naproxen 250 mg PO BID 7 Days #14 tablet HYDROcod/ACETAM 5/325 [[place] 5/325] 1 ea PO Q6H PRN #18 tablet PRN Reason: Pain Comments: You likely have a tear of the cartilage (meniscus) in the knee and possibly some of the ligaments as well. It will be easier to tell perhaps when it is not hurting as much and it can be examined more comfortably. Meanwhile we will treat it as if any of those are going on with the knee brace and crutches for partial to no weightbearing. Naproxen anti-inflammatory twice daily for a week. To that add Tylenol or hydrocodone every 6 hours if needed for pain. Follow-up with orthopedics in about a week, call tomorrow for an appointment. Elevate rest and ice the knee often tonight and tomorrow to reduce swelling. You do not have to have the knee brace on when you rested but you should with any walking or movement. You may find it more comfortable to have it on during sleep to in the first day or 2 but that is based on comfort. I transmitted your prescriptions to [facility] pharmacy. I am prescribing a short course of narcotic pain medication for you. These are potentially dangerous and addictive medications that should be used carefully. These medications may constipate you. Take an [id number] stool softener such as docusate twice daily with plenty of water while taking these medicati ons. If you go 24 hours without a bowel movement, take [id number] MiraLAX, per package instructions. Do not drink or drive while taking these medications. If you received narcotic or sedating medications while in the emergency department do not drive for 24 hours. Store this medication in a safe, secure place and out of reach of children. It is a violation of federal law to give or sell this medication to another person or to use in a manner other than prescribed. The ED will not refill narcotic prescriptions, including prescriptions lost or stolen. You can dispose of unwanted medications at the [facility]'s office or at several pharmacies such as [facility]. Discharge Date/Time: 07/21/21 19:16
--- NOTE | 2021-07-21 17:52 | XRAY Report ---
PROCEDURE: Knee 3 View RT INDICATIONS: PAIN; UNABLE TO BEAR WEIGHT TECHNIQUE: 3 views of the right knee(s) were acquired. COMPARISON: 12/07/2020 FINDINGS: Bones: No acute fractures or dislocations. No suspicious bony lesions. Moderate-severe tricompartm ental degenerative changes of the right knee are again noted. Prominent marginal osteophytes. Soft tissues: Large joint effusion, increased in size. No suspicious soft tissue calcifications. IMPRESSION: Right knee without acute fracture or dislocation. Moderate-severe tricompartmental degen erative changes of the right knee with interval increase in size of now large joint effusion. Reviewed by: Jamil Bonner MD on 07/21/2021 5:50 PM PDT Approved by: Jamil Bonner MD on 07/21/2021 5:50 PM PDT Station ID: [id number]
[2021-07-21] MEDS ORDERED: KETOROLAC 30 MG/ML VIAL IM STA (17:55)
[2021-07-21] MEDS ORDERED: HYDROmorphone 1 MG/ML CARPUJECT IM STA ×2 (17:55→18:54)
[2021-07-21] MEDS ORDERED: ACETAMINOPHEN 325 MG TABLET PO STA (17:55)
== END 2021-07-21 19:16 | disposition home or self-care (01) ==
LOC: ED 16:55
DX: M23.91 Unspecified internal derangement of right knee (principal); M25.461 Effusion, right knee; Z66 Do not resuscitate
CPT/HCPCS: 20610; 73562; 96372; 99282; 99283; A9270; J1170

== ENCOUNTER 2021-08-19 06:00 | Outpatient (CLI) | payer MEDICARE ==
--- NOTE | 2021-08-22 08:43 | XRAY Report ---
PROCEDURE: Knee 3 View RT INDICATIONS: RIGHT KNEE PAIN TECHNIQUE: 2 AP views of both knees and AP and lateral views of the right knee. COMPARISON: None. FINDINGS: Bones: Status post total left knee replacement. Right knee has tricompartmental degenerative changes with osteophytes of the lateral joint space and patellofemoral joint space. No fractures or dislocat ions. No suspicious bony lesions. Soft tissues: Moderate sized suprapatellar joint effusion. No suspicious soft tissue calcifications. IMPRESSION: 1. Osteoarthritis of the right knee. 2. Suprapatellar joint effusion. 3. No acute abnormality. Reviewed by: Jaiden Sifuentes on 08/22/2021 8:42 AM PDT Approved by: Jaiden Sifuentes on 08/22/2021 8:42 AM PDT Station ID: [id number]
== END 2021-08-19 23:59 | disposition home or self-care (01) ==
LOC: DI.WOS 06:00
PROVIDERS: ATTEND Physician Assistant
DX: M17.11 Unilateral primary osteoarthritis, right knee (principal); M25.461 Effusion, right knee; Z96.652 Presence of left artificial knee joint